=== PATIENT | female | born 1990 | race Caucasian/White ===

== ENCOUNTER 2018-02-19 07:10 | Emergency (ER) | payer OTHER, SELFPAY ==
[2018-02-19 07:11] VITALS: BP 139/71; PULSE 68; RESP 15; TEMP 36.2; BMI 31.4
--- NOTE | 2018-02-19 07:48 | RAD_ITS ---
STUDY: X-RAY CHEST REASON FOR EXAM: Female, 27 years old. History of fall. TECHNIQUE: PA and lateral views of the chest. COMPARISON: None. FINDINGS: The lungs are clear and expanded. There is no demonstrated pleural abnormality. Normal size heart. Normal mediastinum and nuzhat. Normal visualized pulmonary arteries. Normal visualized aortic arch and descending thoracic aorta. Normal visualized thoracic spine. Normal visualized ribs, clavicles, and shoulders. There is no demonstrated abnormality of the visualized soft tissue structures of the upper abdomen. RAD/Chest PA and Lateral IMPRESSION: Normal x-ray examination of the chest. Electronically Signed: Quinton Rudolph MD at 8:18 EDT Tel [phone], Service support ,
--- NOTE | 2018-02-19 07:54 | ED.DCSUM_ITS ---
- ER Visit Summary Date of Service: 02/19/18 Chief Complaint: [fAll] History of Present Illness: The patient is a 27 F [who presents the emergency department after a fall. Saturday night she fell off a swing after it broke. She hit the backside of her left head her upper chest and neck. Since then she has been very sore. She has been mildly nauseated. She has had intermittent tingling in both of her hands. No dizziness no problems with mood no problems with sleep. No persistent headache. She states that it hurts in her chest when she laughs coughs or sneezes. She no shortness of breath. She denies the possibility of . She has no injuries in her extremities. She works today but felt unable to go.] Physical Examination: [] 139/71 other vitals within normal limits NC AT PERRL EOMI MIDFACE STABLE NO DENTAL TRAUMA NECK mild tenderness at C7-T1 is paraspinal tenderness of the neck and bilateral shoulders as well, FROM WITHOUT PAIN RRR NO MURMURS, RUBS, OR GALLOPS CTAB, CHEST mild tenderness in the bilateral upper chest, NO BRUISING ABDOMEN SOFT NONTENDER NORMAL BOWEL SOUNDS, NO ECCHYMOSIS EXTREMITIES WITH NO DEFORMITY, SWELLING OR ECCHYMOSIS, NVIT X4 CRANIAL NERVES IN TACT, NO MOTOR SENSORY DEFICITS BACK WITH NO MIDLINE TENDERNESS SKIN NORMAL, NO ABRASIONS OR LACERATIONS Test Results: [] Emergency Department Course and Treatment: [Patient was given Toradol and Flexeril. X-ray of the chest and neck were obtained. X-rays show straightening of normal cervical lordosis but no other acute process. Patient will alternate ice and heat use anti-inflammatories and muscle relaxants rest and follow-up with her primary care physician. She was given precautions for which to return. Treatment Plan: [] Disposition: [Discharge] Impression: [1. Closed head injury 2. Chest wall contusion 3. Neck strain] This note was generated with [employer] software. It may contain incorrect words, spelling, and punctuation that were not noted in review of the chart prior to signing ED Disposition - Plan for ED Patient: Chief Complaint: Head Injury
[2018-02-19] MEDS: Ketorolac 60 MG/2 ML Vial IM (07:57)
--- NOTE | 2018-02-19 08:00 | RAD_ITS ---
STUDY: X-RAY - CERVICAL SPINE REASON FOR EXAM: Female, 27 years old. Pain following injury. TECHNIQUE: 3 view(s) of the cervical spine were obtained. COMPARISON: None FINDINGS: Normal anterior atlantoaxial articulation. Normal odontoid process. There is straightening of the normal cervical lordosis. Normal vertebral bodies and endplates. Normal disc space heights. Normal visualized intervertebral neuroforamina. Small bilateral cervical ribs. The soft tissue structures are unremarkable. RAD/Cerv Spine 2 or 3 Views IMPRESSION: Straightening of the normal cervical lordosis. Electronically Signed: Quinton Rudolph MD at 8:18 EDT Tel [phone], Service support ,
--- NOTE | 2018-02-19 08:34 | ED.DEP ---
ED Disposition - Plan for ED Patient: Chief Complaint: Head Injury Instructions: ED Head Injury Closed, ED Sprain Strain Neck, ED Contusion Chest Wall Prescriptions: Ibuprofen [Ibu] 600 mg PO Q8H PRN PRN #20 tablet PRN Reason: Pain Cyclobenzaprine [Flexeril] 10 mg PO TID PRN #14 tablet PRN Reason: Muscle Spasm Referrals: Chano Grigsby MD [Primary Care Provider] - 5-7 Days
== END 2018-02-19 08:52 | disposition home or self-care (01) ==
PROVIDERS: Emergency Provider Emergency Medicine; Family Provider Family Medicine; PCP Family Medicine
DX: S09.90XA Unspecified injury of head, initial encounter (principal); S16.1XXA Strain of muscle, fascia and tendon at neck level, initial encounter; S20.219A Contusion of unspecified front wall of thorax, initial encounter; W17.89XA Other fall from one level to another, initial encounter; Y93.89 Activity, other specified; Y92.9 Unspecified place or not applicable
CPT/HCPCS: 71046; 72040; 96372; 99282

== ENCOUNTER 2019-12-19 15:53 | Emergency (ER) | payer OTHER, SELFPAY ==
[2019-12-19 15:55] VITALS: BP 120/77; PULSE 88; RESP 17; TEMP 36.7; O2SAT 100; BMI 33.7
--- NOTE | 2019-12-19 16:24 | ED.VISSUMM ---
- ER Visit Summary Date of Service: 12/19/19 Chief Complaint: URI History of Present Illness: The patient is a 29 F presenting with URI symptoms. She states that this has been ongoing for the past 2 weeks but worsened since yesterday. She has a dry cough, rhinorrhea, congestion, sore throat. She denies fever. She does have sick contacts at work. She denies recent travel. She is not a smoker. Denies chest pain or shortness of breath. Denies other complaints. Physical Examination: Vitals are stable. Patient is afebrile. Alert no acute distress. HEENT exam is unremarkable. Pharynx is normal. Uvula midline. Neck is supple. No meningismus Lungs are clear and equal bilaterally. Heart is regular rate and rhythm. Abdomen is soft nontender nondistended. Extremities are unremarkable. Skin is warm and dry. No rash No focal neurologic deficit. Remainder of exam is unremarkable. Emergency Department Course and Treatment: Chest xray shows hypoinflation. No airspace consolidation. Patient is advised to return to the ED for any worsening complaints including high fever and shortness of breath. Advised follow-up with primary care physician. Disposition: Discharge home Impression: URI This note was generated with [employer] dictation software. It may contain incorrect words, spelling, and punctuation that were not noted in review of the chart prior to signing ED Disposition - Plan for ED Patient: Instructions: VIRAL SYNDROME (Adult) Referrals: Chano Grigsby MD [Primary Care Provider] -
--- NOTE | 2019-12-19 16:25 | RAD_ITS ---
STUDY: X-RAY CHEST REASON FOR EXAM: Female, 29 years old. cough and sore throat for 3 days TECHNIQUE: AP COMPARISON: 02/19/2018 FINDINGS: The lungs are clear but under expanded. There is no demonstrated pleural abnormality. Normal size heart. Normal mediastinum and nuzhat. Normal visualized pulmonary arteries. Normal visualized aortic arch and descending thoracic aorta. Normal visualized thoracic spine. Normal visualized ribs, clavicles, and shoulders. There is no demonstrated abnormality of the visualized soft tissue structures of the upper abdomen. RAD/Chest 1 View (Portable) IMPRESSION: Hypoinflation. No airspace consolidation. Electronically Signed: Freddy Gonzalez MD ([place]) at 16:38 EDT , Service support ,
--- NOTE | 2019-12-19 16:45 | ED.DEP ---
ED Disposition - Plan for ED Patient: Instructions: VIRAL SYNDROME (Adult) Referrals: Chano Grigsyb MD [Primary Care Provider] -
[2019-12-19 16:53] VITALS: BP 118/66; PULSE 84; RESP 18
== END 2019-12-19 17:02 | disposition home or self-care (01) ==
LOC: ED 17:02
PROVIDERS: Emergency Provider Emergency Medicine; PCP Family Medicine
DX: J06.9 Acute upper respiratory infection, unspecified (principal)
CPT/HCPCS: 71045; 99282

== ENCOUNTER 2021-05-19 11:55 | Emergency (ER) | payer OTHER, SELFPAY ==
[2021-05-19 11:56] VITALS: BP 125/75; PULSE 82; RESP 16; TEMP 36.3; O2SAT 99; BMI 33.3
--- NOTE | 2021-05-19 12:53 | RAD_ITS ---
STUDY: X-RAY - LEFT TIBIA AND FIBULA REASON FOR EXAM: Female, 30 years old. Injury/Pain TECHNIQUE: 2 view(s) of the tibia and fibula were obtained. COMPARISON: None. FINDINGS: No acute fracture, dislocation or osseous destruction. No significant joint space narrowing. No significant productive changes. No significant soft tissue swelling. RAD/Tibia & Fibula 2 Views IMPRESSION: Left tibia/fibula intact Electronically Signed: Bill Irizarry DO at 13:17 EDT Tel , Service support ,
[2021-05-19] MEDS: HYDROcodone Bitartrate/Apap 5/325 Tablet PO (12:55)
--- NOTE | 2021-05-19 14:13 | EDS_ITS ---
HPI History of Present Illness Chief Complaint: Lower Extremity Injury Informant: patient Onset/Context/Timing Onset: Yesterday Context: Sudden Onset Timing: Continuous Quality of Pain: - (Cramping, tightness) Location: Left calf Worsened by: Weightbearing Relieved by: Ice Associated Symptoms Associated Symptoms: Negative for Parasthesia, Weakness and Loss of Funtion Narrative Narrative: Patient presents with left calf pain that began last night. Patient states she was lifting something when she felt a pop in her left calf. Patient states her pain is worse today. Patient states her pain is worse with any weightbearing. Patient describes her pain as a cramping and tightness in her calf. Patient states ice has been helping with the pain. Patient denies any paresthesias or weakness. Patient denies any other injuries. Patient is concerned over possible tendon rupture. PFSH PFSH no medical history Home Medications naproxen 500 mg PO BID PRN #20 tab 05/19/21 [Rx Last Taken Unknown] Allergy/AdvReac Type Severity Reaction Status Date / Time bee venom protein (honey bee) Allergy Swelling Verified 05/19/21 11:56 no surgical history Social History Smoking Status: Never smoker ROS ROS ED Constitutional Constitutional ED: Denies chills or fever(s) Eyes Eyes: Denies blurry vision or change in vision ENT ENT ED: Denies rhinorrhea or sore throat Cardiovascular Cardiovascular: Denies chest pain or palpitations Respiratory/Chest Respiratory/Chest: Denies cough or dyspnea Gastrointestinal Gastrointestinal: Denies nausea or vomiting Genitourinary Genitourinary ED: Denies dysuria or hematuria Musculoskeletal Musculoskeletal: Denies back pain or neck pain Integumentary Denies abscess or rash Neurologic Neurologic: Denies headache(s) or weakness Allergic/Immunologic Allergic/Immunologic ED: Denies mouth swelling or urticaria EXAM Physical Exam Const Vital Signs: 05/19/21 11:56 05/19/21 14:42 Temperature 97.3 F L Temperature Source Temporal Pulse Rate 82 81 Respiratory Rate 16 20 H Blood Pressure 125/75 H 134/79 H Blood Pressure Mean 91 Pulse Ox 99 97 Oxygen Delivery Method Room Air Positive well nourished and well developed General Appearance ED: well developed HEENT Reports moist mucous membranes Neck full ROM Extremity Extremity Narrative: There is tenderness over the medial and posterior aspects of the left lower leg. There is no deformity. There is no edema or ecchymosis. Sharp test is negative. Achilles tendon is intact. Range of motion of the left ankle was decreased in dorsiflexion secondary to pain. Pedal pulses are e qual bilaterally. There are no sensory deficits noted. Neuro oriented x3, CN's II-XII intact bilaterally, moves all extremities and no sensory deficits noted Sensorium / Orientation: alert Motor Exam: strength 5/5 throughout Psych mental status grossly normal MDM MDM MDM Narrative Medical decision making narrative: Patient was given a dose of [place] here. X- rays of the left tib-fib were obtained. There are 2 views. On my interpretation, there is no acute fracture. There is some mild soft tissue swelling. Radiologist also interpreted the x-rays and agrees. Patient was advised of her findings. Patient was given a walking boot. Patient had crutches. Patient was instructed to ice and elevate the left calf. Patient was given a prescription for naproxen. Patient was instructed to follow-up with her primary care physician in 5 to 7 days. Patient understood and was agreeable with the plan. All questions were answered. Radiography Diagnostic Testing: Radiology Impression Tibia/Fibula X-Ray 05/19/21 12:53 IMPRESSION: Left tibia/fibula intact Electronically Signed: Bill Irizarry DO at 13:17 EDT Tel , Service support , Discharge Plan Triage Chief Complaint: Lower Extremity Injury ED Provider: Bill Araya Dx/Rx/DC Orders Clinical Impression: Strain of left calf muscle Instructions: ED Muscle Strain, Extremity Prescriptions: New naproxen 500 MG tablet 500 mg PO BID PRN Qty: 20 RF: 0 Stand Alone Forms: Work Status Form Primary Care Provider: Chano Grigsby Referrals: Chano Grigsby MD [Primary Care Provider] - 3-5 Days Disposition Disposition: Home, Self Care Discharge Date/Time: 05/19/21 14:43
[2021-05-19 14:42] VITALS: BP 134/79; PULSE 81; RESP 20; O2SAT 97
--- NOTE | 2021-05-19 14:43 | ED.RN ---
THIS NURSE REVIEWED D/C INSTRUCTIONS WITH PT. PT VERBALIZED UNDERSTANDING OF INSTRUCTIONS. PT DENIES FURTHER NEEDS OR QUESTIONS AT THIS TIME
== END 2021-05-19 14:43 | disposition home or self-care (01) ==
LOC: ED 12:32
PROVIDERS: Emergency Provider Emergency Medicine; PCP Family Medicine
DX: S89.92XA Unspecified injury of left lower leg, initial encounter (principal); X50.9XXA Other and unspecified overexertion or strenuous movements or postures, initial encounter; Y93.9 Activity, unspecified; Y92.9 Unspecified place or not applicable; Y99.9 Unspecified external cause status
CPT/HCPCS: 73590; 99283

== ENCOUNTER 2024-01-22 08:22 | Inpatient (IN) | payer OTHER, SELFPAY ==
[2024-01-22] VITALS (43 sets, daily range): BP systolic 79–133; BP diastolic 46–70; PULSE 64–123; RESP 16; TEMP 36.2–36.6; O2SAT 94–100; BMI 35.4
[2024-01-22] MEDS: Lactated Ringers 1,000 ML 50 ML IV (08:00)
[2024-01-22] MEDS: Oxytocin 15 Units/NS 250ml 15 UNITS/250 ML IV.SOLN 2 UNITS IV (08:30)
[2024-01-22 08:46] LABS: Absolute Lymphocyte Count 1.32 X10^3/uL (0.83-4.51); Absolute Neutrophil Count 5.8 X10^3/uL (2.0-7.7); Basophil# 0.03 X10^3/uL; Basophil% 0.4 % (0-1); Eosinophil# 0.11 X10^3/uL; Eosinophils% 1.4 % (0-5); Hematocrit 36.3 % (37-47); Hemoglobin 12.5 g/dL (12.0-15.0); Lymphocyte # 1.32 X10^3/ul (0.83-4.51); Lymphocyte % 16.9 % (19-41); Mean Corp Hgb Conc 34.4 g/dL (32-36); Mean Corpuscular Hgb 31.6 pg (27.0-32.0); Mean Corpuscular Volume 91.9 fL (81-99); Mean Platelet Vol. 11.5 fl (6.2-12.0); Monocyte# 0.55 X10^3/uL; NRBC Flagged by Analyzer 0 % (0-5); Neutrophil # 5.79 X10^3/uL (2.7-7.7); Platelet Count 175 K/mm3 (150-450); RBC Distribution Width CV 13.5 % (11.6-14.6); RBC Distribution Width SD 45.3 fl (35.1-43.9); Red Blood Count 3.95 M/mm3 (4.2-5.4); White Blood Count 7.8 K/mm3 (4.4-11.0)
[2024-01-22 09:40] LABS: Syphilis Antibodies Non-reactive
[2024-01-22 09:53] LABS: Bedside Glucose 104 mg/dL (74-106)
[2024-01-22] MEDS: Ondansetron 4 MG/2 ML Vial IV (12:02)
[2024-01-22] MEDS: Lactated Ringers 1,000 ML 100 ML IV (15:20)
[2024-01-22 16:35] LABS: Bedside Glucose 78 mg/dL (74-106)
[2024-01-22] MEDS: 0.9% Saline Lock 10 ML Syringe IV (16:55)
--- NOTE | 2024-01-22 19:31 | PCM.PN.OB ---
Subjective Subjective Pitocin IOL. Minimal cervical change through out the day. Pitocin break as severe weather passed through. Restarted Pitocin and AROM for clear fluid. Objective Data Objective Data Vital Signs: Vital Signs Temp Pulse Resp BP Pulse Ox 97.4 F L 80 16 110/64 100 01/22/24 18:10 01/22/24 19:30 01/22/24 18:10 01/22/24 19:30 01/22/24 19:28 Weight: 96.729 kg Body Mass Index (BMI) 35.4 Intake & Output: Intake and Output for Last 24 Hours 01/20/24 01/21/24 01/22/24 23:59 23:59 23:59 Intake Total 435.94 / 435.94 Balance 435.94 / 435.94 Lab / Micro Data 01/22/24 08:00 Labs: Laboratory Results - last 24 hr 01/22/24 08:00: WBC 7.8, RBC 3.95 L, Hgb 12.5, Hct 36.3 L, MCV 91.9, MCH 31.6, MCHC 34.4, RDW Std Deviation 45.3 H, RDW Coeff of Cat 13.5, Plt Count 175, MPV 11.5, Immature Gran % (Auto) 0.300, Neut % (Auto) 74.0 H, Lymph % (Auto) 16.9 L, [place] % (Auto) 7.0, Eos % (Auto) 1.4, Baso % (Auto) 0.4, Absolute Neuts (auto) 5.8, Absolute Lymphs (auto) 1.32, Nucleated RBC % 0, Syphilis Total Ab Non-reactive, Blood Type O POSITIVE, Antibody Screen NEGATIVE 01/22/24 09:21: POC Glucose 104 01/22/24 16:15: POC Glucose 78 Physical Exam Const alert and no apparent distress General Appearance: cooperative HEENT normocephalic Resp normal respiratory effort GI soft to palpation GI Narrative: gravid, nontender, appropriate for gestational age Psych activity/motor behavior normal NST FHR Rate Baby A Variability:: Moderate Accelerations:: 15 x 15 Decelerations:: None NST Reactive:: Yes FHR Category:: Category I Uterine Activity:: q3 Assessment & Plan (1) 39 weeks gestation of : (2) Gestational diabetes, diet controlled:
--- NOTE | 2024-01-22 19:33 | PCM.HP.OB ---
HPI - General General Date of Admission: 01/22/24 Date of Service: 01/22/24 Chief Complaint: IOL for gestational diabetes HPI Narrative PELON HUANG, is a 33 F who presents for induction of labor with diet controlled diabetes Maternal Data Information Final WEI: 01/29/24 Gestational age: 39 PFSH PFSH Medical History Gestational diabetes Medical History no medical history Home Medications naproxen 500 mg tablet 500 mg PO BID PRN #20 tabs 05/19/21 [Rx Last Taken Unknown] Allergy/AdvReac Type Severity Reaction Status Date / Time bee venom protein (honey bee) Allergy Swelling Verified 05/19/21 11:56 Social History Smoking Status: Never smoker History 2 Elective abortions Hx Para 1 Spontaneous abortions Hx # Term Pregnancies Ectopic pregnancies Hx # Pregnancies Multiple births # of living children NST FHR Rate Baby A Baseline: 140 Variability:: Moderate Accelerations:: 15 x 15 Decelerations:: None NST Reactive:: Yes FHR Category:: Category I Uterine Activity:: few on admission ROS Constitutional Constitutional: Denies fatigue, fever(s) or malaise Eyes Eyes: Denies change in vision ENT HEENT: Denies dizziness or headache(s) Cardiovascular Cardiovascular: Denies chest pain, dyspnea or lightheadedness Respiratory/Chest Respiratory/Chest: Denies cough or dyspnea Gastrointestinal Gastrointestinal: Denies change in bowel habits Genitourinary Genitourinary: Denies burning urination or genital lesions Integumentary Integumentary: Denies rash Neurologic Neurologic: Denies confusion, dizziness, headache(s), numbness or weakness Vital Signs Vital Signs Vital Signs: 01/22/24 07:20 01/22/24 07:20 01/22/24 07:19 Temperature Temperature Source Temporal Pulse Rate 93 Respiratory Rate Blood Pressure 121/60 H BP Systolic 121 BP Diastolic 60 Pulse Ox 01/22/24 07:19 01/22/24 07:19 01/22/24 08:32 Temperature 97.7 F L Temperature Source Pulse Rate Respiratory Rate 16 Blood Pressure 114/60 BP Systolic 114 BP Diastolic 60 Pulse Ox 01/22/24 08:32 01/22/24 09:02 01/22/24 09:02 Temperature Temperature Source Pulse Rate 80 81 Respiratory Rate Blood Pressure 105/58 L BP Systolic 105 BP Diastolic 58 Pulse Ox 01/22/24 10:20 01/22/24 10:20 01/22/24 10:29 Temperature Temperature Source Pulse Rate 72 Respiratory Rate Blood Pressure 97/52 L 93/51 L BP Systolic 97 93 BP Diastolic 52 51 Pulse Ox 01/22/24 10:29 01/22/24 11:34 01/22/24 11:34 Temperature Temperature Source Pulse Rate 77 123 H Respiratory Rate Blood Pressure 107/64 BP Systolic 107 BP Diastolic 64 Pulse Ox 01/22/24 11:35 01/22/24 11:35 01/22/24 11:34 Temperature Temperature Source Temporal Pulse Rate 105 H Respiratory Rate Blood Pressure BP Systolic BP Diastolic Pulse Ox 98 01/22/24 11:34 01/22/24 11:34 01/22/24 12:07 Temperature 97.5 F L Temperature Source Pulse Rate Respiratory Rate 16 Blood Pressure 109/66 BP Systolic 109 BP Diastolic 66 Pulse Ox 01/22/24 12:07 01/22/24 12:20 01/22/24 12:20 Temperature Temperature Source Pulse Rate 73 65 Respiratory Rate Blood Pressure 117/70 BP Systolic 117 BP Diastolic 70 Pulse Ox 01/22/24 13:28 01/22/24 13:28 01/22/24 13:27 Temperature Temperature Source Temporal Pulse Rate 69 Respiratory Rate Blood Pressure 115/66 BP Systolic 115 BP Diastolic 66 Pulse Ox 01/22/24 13:27 01/22/24 13:27 01/22/24 13:27 Temperature 97.2 F L Temperature Source Pulse Rate Respiratory Rate 16 Blood Pressure BP Systolic BP Diastolic Pulse Ox 100 01/22/24 15:50 01/22/24 15:50 01/22/24 15:50 Temperature Temperature Source Pulse Rate 80 Respiratory Rate Blood Pressure 133/66 H BP Systolic 133 BP Diastolic 66 Pulse Ox 100 01/22/24 17:34 01/22/24 17:34 01/22/24 18:10 Temperature Temperature Source Temporal Pulse Rate 75 Respiratory Rate Blood Pressure 126/63 H BP Systolic 126 BP Diastolic 63 Pulse Ox 01/22/24 18:10 01/22/24 18:10 01/22/24 18:10 Temperature Temperature Source Pulse Rate 64 Respiratory Rate 16 Blood Pressure 103/54 L BP Systolic 103 BP Diastolic 54 Pulse Ox 01/22/24 18:10 01/22/24 18:10 01/22/24 19:28 Temperature 97.4 F L Temperature Source Pulse Rate 80 Respiratory Rate Blood Pressure BP Systolic BP Diastolic Pulse Ox 99 01/22/24 19:28 01/22/24 19:30 01/22/24 19:30 Temperature Temperature Source Pulse Rate 80 Respiratory Rate Blood Pressure 110/64 BP Systolic 110 BP Diastolic 64 Pulse Ox 100 01/22/24 19:28 01/22/24 19:28 01/22/24 19:28 Temperature 97.4 F L Temperature Source Temporal Pulse Rate Respiratory Rate 16 Blood Pressure BP Systolic BP Diastolic Pulse Ox Weight Weight: 96.729 kg Body Mass Index (BMI) 35.4 Physical Exam Const alert and no apparent distress General Appearance: cooperative HEENT normocephalic Head and Scalp: atraumatic Eyes PERRL and EOMs intact bilaterally Neck full ROM Resp normal respiratory effort GI soft to palpation GI Narrative: gravid, nontender, appropriate for gestational age Inspection: gravid Manual OB Exam: dilated 3, effaced 50 and station -3 Neuro moves all extremities and no focal motor deficits Psych activity/motor behavior normal Labs Labs Labs: Blood Type O POSITIVE Antibody Screen NEGATIVE Hct 36.3 % (37-47) L Hgb 12.5 g/dL (12.0-15.0) Syphilis Total Ab Non-reactive Assessment & Plan (1) Gestational diabetes, diet controlled: QUALIFIERS: Trimester: third trimester Qualified Code(s): O24.410 - Gestational diabetes mellitus in , diet controlled PLAN: Pitocin induction. Epidural prn (2) 39 weeks gestation of :
[2024-01-22 20:35] LABS: Bedside Glucose 84 mg/dL (74-106)
[2024-01-22 20:35] LABS: Bedside Glucose 64 mg/dL (74-106)
[2024-01-22] MEDS: LACTATED RINGERS 500 ML 999 ML IV ×2 (22:28→23:58)
[2024-01-22] MEDS: fentaNYL-bupivacaine (epidural) 100 ML BAG EPIDURAL (23:42)
[2024-01-23] VITALS (103 sets, daily range): BP systolic 81–143; BP diastolic 39–101; PULSE 55–126; RESP 16–18; TEMP 36.1–36.9; O2SAT 94–100
[2024-01-23 00:28] LABS: Bedside Glucose 93 mg/dL (74-106)
[2024-01-23] MEDS: Lactated Ringers 1,000 ML 200 ML IV (02:12)
[2024-01-23 04:31] LABS: Bedside Glucose 86 mg/dL (74-106)
[2024-01-23] MEDS: Oxytocin 10 UNITS/ML Vial IM (05:10)
[2024-01-23] MEDS: Oxytocin 15 Units/NS 250ml 15 UNITS/250 ML IV.SOLN 83 UNITS IV (05:10)
--- NOTE | 2024-01-23 05:27 | EX.PCM.OBRPT ---
Assessment & Plan (1) (spontaneous vaginal delivery): (2) Gestational diabetes, diet controlled: QUALIFIERS: Trimester: third trimester Qualified Code(s): O24.410 - Gestational diabetes mellitus in , diet controlled (3) 39 weeks gestation of : Maternal Data Information Final WEI: 01/29/24 Gestational age: 39+1 Vaginal Delivery Maternal Presentation Maternal Presentation: Medically Indicated Induction Maternal Presentation: Gestational diabetes Type of Induction: Pitocin and Amniotomy Operative Information Date of Procedure: 01/23/24 Pre-Operative Diagnosis: IUP at 39 weeks, gestational diabetes Post-Operative Diagnosis: same Surgery / Procedure Performed: Spontaneous Vaginal Delivery Type of Anesthesia: Epidural Drain: [place] to straight drain Estimated Blood Loss: 150 cc Time of Delivery: 05:06 Findings Description of Procedure: After reaching complete dilatation the patient pushed for 25 minutes over an intact peritoneum. Delivered OA. The anterior and posterior shoulder delivered easily. There was a true knot in the cord. Cord was clamped and cut. Cord blood was collected. No repair needed Presentation: Vertex and POWER Amniotic Membrane Rupture Type: Artificial Time of Membrane Rupture: 1923 Amniotic Fluid Description: Clear Placental Delivery Description: Spontaneous Placenta Disposition: [facility] Cord Vessel Description: 3 Vessels Cord Entanglement: True Knot(s) (x1) Nuchal Cord Compression: Without compression Infant A Gender: Male (1 minute): 8 (5 minute): 9 Delayed Cord Clamping: Yes Post Vaginal Delivery Medications Given After Delivery: IV Pitocin and IM Pitocin Episiotomy Description: None Laceration: None Complication Complications: None
[2024-01-23] MEDS: LACTATED RINGERS 300 ML 999 ML IV (06:28)
[2024-01-23] MEDS: Acetaminophen 500 MG Tablet 1000 MG PO (07:24)
[2024-01-23] MEDS: Ibuprofen 600 MG Tablet PO ×2 (11:13→19:52)
[2024-01-23 13:51] LABS: Bedside Glucose 113 mg/dL (74-106)
--- NOTE | 2024-01-23 16:05 | CASEMGMT ---
Social Work Assessment Labor and Delivery Unit Patient Address:[address] [place] [id number] Phone number: [phone] Date of Referral: 01/23/24 Time of Referral:? [id number] Referred By: Ruma Tuttle Date of Intervention: 01/23/24?? Time of Intervention:? 1500 Reason for Referral:? resources Sw completed chart review and acknowledges social work consult due to resources. Sw presented to bedside and introduced self to mother of baby (MOB- Mirta) and father of baby (FOB- Mehran). Sw explained reason for sw involvement and completed psychosocial assessment. History obtained from: medical records, MOB and FOB Household composition: Currently residing in the home is MOB, FOB, EUNICE's ex-, and EUNICE's older son (Alvaro- 10 years old). EUNICE states that her housing is safe and secure. When discussing the dynamics between her ex living with her and FOB. EUNICE reports that she is in the process of going through a dissolution, and although her ex still continues to reside with them, they have lived together for a couple of years and get along fine. Patient's parent/guardian status:? ?EUNICE reports that she and FOB have been together for 6 years. EUNICE denies any concerns of domestic violence or intimate partner violence. EUNICE states that she started to file for a dissolution while she had just learned of her - and because of the she was not permitted to file the paperwork. [facility]ICE states that [facility] staff helped her with the documentation. * FOB states that he has two older children: 16 and 8 years old. FOB states that he is not involved in the 16 year olds life. He has scheduled visits with his 8 year old 2x a month. Medical History: EUNICE is 33 year old female who is 2, para 1- now 2 following labor and delivery of . EUNICE received routine care during with [facility]. EUNICE presented to hospital for an induction of labor, and baby was born on 01/23/24 via vaginal delivery at 39 weeks gestation. Baby boy, named Boo Anthony, was born weighing 6lb 12oz with apgars of 8 and 9 at one and five minutes of life, respectfully. Baby will be followed by Dr. Lutz for pediatrics. EUNICE states that she is breast feeding and is still requiring some assistance. ? Educational Status:? Both parents graduated from high school. Financial Status: JOE works for a cleaning service that cleans [employer].EUNICE works for [employer] and is able to take three months off of work now that baby has been born. Supplies:??MOB reports to obtaining all necessary baby supplies, including: car seat, safe sleep space, clothes, diapers and wipes. Childcare/Caregiver(s):? MOB will be the primary caregiver to baby along with help from FOB when he is not at work. Parents state that they have family members that will provide childcare for parents when they are both working. Transportation: Both parents have their license and reliable means of transportation- no barriers at this time. ?? Programs/Agencies Involved: ??EUNICE is connected to [facility] that helped her obtain necessary baby supplies, and provided classes for parents to take. ? Children Services/Legal Issues:??? JOE states that he did have a children services case when his daughter was younger- STEPHANIEB states that the case was open on the mother of his children- and she ultimately lost custody. EUNICE denies history of children services involvement. No issues or concerns warranting referral to be made at this time. Behavioral Health Issues: ??Mental Health History:??JOE reports that he has been diagnosed with ADD, anxiety and depression. JOE states that he is connected to mental health services and supports at [facility]. MOB denies mental health history. ? Substance Use History: Parents deny substance use ?? Family History:?Parents deny family history of addiction/ substance use, or significant mental health diagnoses such as bipolar and schizophrenia. ? Drug Screens: no drug screens observed in chart review. ?? Family/Social Stressors:? Parents deny any issues, concerns or stressors at this time. Support Systems: EUNICE states that her biggest supports are her mom and paternal grandma. Depression/Shaken Baby/Safe Sleeping:? Sw educated parents at length regarding signs and symptoms of baby blues and depression and anxiety to be on the lookout for. Sw also provided parents with literature for them to review on these topics. Parents expressed understanding. Sw educated parents on shaken baby prevention and ABCs of safe sleep. Parents express understanding. Sw provided literature on these topics for parents to take home as well. ASSESSMENT:? MOB and baby are admitted following labor and delivery of . MOB and FOB both at bedside and attentive to providing care to . Parents both engaged in conversation and completion of psychosocial assessment. Family living arrangements and dynamics are different, but parents report this is what works for their family. Parents were talkative and observed to be attentive to baby during completion of psychosocial assessment. PLAN:? MOB and baby to be discharged when medically ready. ?No other services requested or indicated. Nallely Mistry, AIRPORT SKILLED MAINTENANCE SUPERVISOR, REHAB RN
[2024-01-24 04:15] VITALS: BP 109/60; PULSE 78
[2024-01-24 04:30] VITALS: BP 109/60; PULSE 77; RESP 16; TEMP 36.6; O2SAT 97
[2024-01-24 04:48] LABS: Bedside Glucose 112 mg/dL (74-106)
--- NOTE | 2024-01-24 06:54 | PCM.DC.SUM ---
Providers Date of Admission: 01/22/24 Primary Care Physician: Dr. Chano Grigsby MD Reason For Visit: VAG Diagnosis Discharge Diagnosis (1) (spontaneous vaginal delivery): Status: Acute Code(s): O80 - Encounter for full-term uncomplicated delivery (2) Gestational diabetes, diet controlled: Status: Acute Code(s): O24.410 - Gestational diabetes mellitus in , diet controlled Qualifiers: Trimester: third trimester Qualified Code(s): O24.410 - Gestational diabetes mellitus in , diet controlled (3) 39 weeks gestation of : Status: Acute Code(s): Z3A.39 - 39 weeks gestation of Plan PPD 1 Routine care Discharge home Medications at Discharge Home Medications acetaminophen 500 mg tablet 1,000 mg (2 x 500 mg) PO Q6H PRN PRN Pain 1-10 Or Fever #0 tabs 01/24/24 ibuprofen 600 mg tablet 600 mg PO Q6H PRN PRN Pain Score 1-10 #0 tabs 01/24/24 Hospital Course Operations None Procedures None Summary of Care Provided Minutes Spent on Discharge: 10 Physical Exam Const alert and no apparent distress General Appearance: cooperative and comfortable Exam Limitations: no limitations HEENT normocephalic Eyes General Eye: normal appearance of both eyes Neck full ROM General: normal visual inspection Chest Chest: symmetrical chest wall rise Resp normal respiratory effort and normal air movement Effort and Inspection: symmetric chest movement Auscultation: clear to auscultation bilaterally Cardio regular rate and regular rhythm GI normal to inspection, nondistended, normoactive bowel sounds Back/Spine normal ROM Extremity full ROM and no calf tenderness General Extremity: normal exam except as noted Skin no rashes or lesions noted Neuro CN's II-XII intact bilaterally Psych mental status grossly normal Weight / BMI Weight Weight: 213 lb 4 oz Body Mass Index (BMI) 35.4 ABG / Lab / Microbiology Data 01/22/24 08:00 Laboratory: Laboratory Results - last 24 hr 01/23/24 06:03: POC Glucose 113 H 01/24/24 04:20: POC Glucose 112 H D/C Instructions Discharge Diet: No restrictions May resume sexual activity in: 6-8 weeks Weight Bearing Status: Weight bearing as tolerated Call your doctor if you observe: Fever of 101 or Higher, Inability to urinate, Using more than 1 pad per hour, Shortness of breath, Chest pain, Calf discomfort and Uncontrolled pain When: 2 weeks virtual visit/ 6 weeks in office Meaningful Use Info Meaningful Use Meaningful Use Diagnoses (Choose all that apply): None applicable Ischemic Stroke Statin Dosing Therapy Reference: STATIN DOSE THERAPY REFERENCE: * Patients > 75 years receive moderate or high dose statin therapy. * Patients 75 years or YOUNGER should receive HIGH intensity statin dose unless contraindicated. You will be required to document reason for non-treatment if statin daily dose does not meet guidelines. HIGH DOSE STATIN THERAPY DAILY Atorvastatin > than or = to 40 mg Rosuvastatin > than or = to 20 mg Amlodipine + Atorvastatin > than or = to 2.5/40 mg Ezetimibe + Simvastatin 10/80 mg Simvastatin 80mg Discharge Plan Admission Admit Date/Time: 01/22/24 08:22 Primary Reason for Your Visit: Labor and Delivery Attending Provider: Ruma Tuttle Primary Care Provider: Chano Grigsby Discharge Orders/Prescriptions Prescriptions: New acetaminophen 500 mg Tablet 1,000 mg PO Q6H PRN PRN (Reason: Pain 1-10 Or Fever) Qty: 0 0RF ibuprofen 600 mg Tablet 600 mg PO Q6H PRN PRN (Reason: Pain Score 1-10) Qty: 0 0RF Discontinued naproxen 500 MG tablet 500 mg PO BID PRN Qty: 20 0RF Referrals / Follow Up: Chano Grigsby MD [Primary Care Provider] - Disposition Disposition (needs filled in before D/C Order can be placed): Home, Self Care
[2024-01-24 07:18] VITALS: BP 98/55; PULSE 88
[2024-01-24 07:22] VITALS: BP 98/55; PULSE 90; RESP 16; TEMP 36.6; O2SAT 98
== END 2024-01-24 09:20 | disposition home or self-care (01) | DRG 807 ==
PROVIDERS: Admitting Provider Obstetrics & Gynecology; PCP Family Medicine; Visit Provider Obstetrics & Gynecology
DX: O24.420 Gestational diabetes mellitus in childbirth, diet controlled (principal); Z37.0 Single live birth; O69.2XX0 Labor and delivery complicated by other cord entanglement, with compression, not applicable or unspecified; O69.81X0 Labor and delivery complicated by cord around neck, without compression, not applicable or unspecified; Z3A.39 39 weeks gestation of pregnancy
CPT/HCPCS: 59025; 59050; 82962; 85025; 86780; 86850; 86900; 86901; 99221; J7120; A4216; G0378; J2405

== ENCOUNTER 2024-06-30 21:21 | Emergency (ER) | payer OTHER, SELFPAY ==
[2024-06-30 21:22] VITALS: BP 128/75; PULSE 71; RESP 18; TEMP 36.1; O2SAT 96; BMI 36.3
--- NOTE | 2024-06-30 21:42 | EX.ED.UPPERE ---
HPI History of Present Illness Chief Complaint: Upper Extremity Injury Informant: patient Narrative Narrative: [id number] female presents bilateral wrist pains with tingling to the hand for a while. Also admitted bilateral shoulder pains. She works at [employer]. Reports a lot of repetitive motions. She states pain comes and goes. She has not had this evaluated. She states she is concern for carpal tunnel syndrome. PFSH PFS Medical History (spontaneous vaginal delivery) Gestational diabetes, diet controlled 39 weeks gestation of Gestational diabetes Home Medications ?Medication ?Instructions ?Recorded ?Last Taken ?Type acetaminophen 500 mg tablet 1,000 mg (2 x 500 mg) PO Q6H PRN 01/24/24 Unknown Rx PRN Pain 1-10 Or Fever #0 tabs ibuprofen 600 mg tablet 600 mg PO Q6H PRN PRN Pain Score 01/24/24 Unknown Rx 1-10 #0 tabs Allergy/AdvReac Type Severity Reaction Status Date / Time bee venom protein (honey bee) Allergy Swelling Verified 06/30/24 21:22 Social History Smoking Status: Never smoker ROS ROS ED Constitutional Constitutional ED: Denies fever(s) ENT ENT ED: Denies sore throat Cardiovascular Cardiovascular: Denies chest pain Respiratory/Chest Respiratory/Chest: Denies cough Gastrointestinal Gastrointestinal: Denies abdominal pain, nausea or vomiting Musculoskeletal Musculoskeletal: Reports extremity pain; Denies back pain or neck pain Integumentary Denies rash or wounds Neurologic Neurologic: Denies headache(s), paresthesias or weakness EXAM Physical Exam Const Vital Signs: 06/30/24 21:22 Temperature 97 F L Temperature Source Temporal Pulse Rate 71 Respiratory Rate 18 Blood Pressure 128/75 H Blood Pressure Mean 92 Pulse Ox 96 Oxygen Delivery Method Room Air Positive well nourished and well developed General Appearance ED: well developed and NAD HEENT Reports moist mucous membranes normocephalic and atraumatic Eyes EOMs intact bilaterally and conjunctivae normal General Eye ED: Yes normal appearance of both eyes Neck no lymphadenopathy and supple General: Negative for tenderness Chest Wall Chest: Negative for tenderness Resp normal respiratory effort and normal air movement Effort and Inspection: symmetric chest movement; Negative for respiratory distress Cardio regular rate, regular rhythm and no murmurs Peripheral Pulses: pulses 2+ throughout GI normal to inspection, nondistended, normoactive bowel sounds and non-tender Palpation: Negative for guarding or rebound tenderness present Back/Spine no CVA tenderness and no thoracic nor lumbar tenderness Extremity normal to inspection Extremity Narrative: Negative Tinel's at bilateral wrists. Bilateral positive Phalen's test with pain that would go to her thumbs. There is no weakness to railroad inspector strength. Bilateral shoulder exam negative empty can negative Apley's test. No pain with internal/external rotation of shoulder against resistance. Soft compartments. Neuro vas intact distally. General Extremety ED: Negative for edema or tenderness General Extremity: Negative for edema Neuro oriented x3 and no sensory deficits noted Sensorium / Orientation: awake and alert Skin no rashes or lesions noted and no wounds MDM MDM MDM Narrative Medical decision making narrative: Interventions / MDM: Differential diagnosis: Carpal tunnel syndrome, cervical strain. Diagnosis considered but do not suspect: No clinical or dislocation. My EKG interpretation: N/A Imaging independently reviewed and interpreted by myself: N/A External documents reviewed: N/A Test considered but not ordered:N/A ED course: Clinically carpal tunnel syndrome positive Phalen's test. Bilateral shoulder strain. Provided Velcro wrist splints. She declined medication knee. She has Tylenol and Motrin at home. She can follow-up orthopedics outpatient, along with her PCP. All questions were answered. Re-evaluation: stable Disposition discussed with patient/family/significant other: Patient Case discussed with consulting clinician: N/A This note was generated with [employer] dictation software. It may contain incorrect words, spelling, and punctuation that were not noted in checking the note before signing. Discharge Plan Triage Chief Complaint: Upper Extremity Injury ED Provider: Tonio Sahu Dx/Rx/DC Orders Clinical Impression: Carpal tunnel syndrome on both sides, Shoulder strain Instructions: Carpal Tunnel Syndrome, Carpal Tunnel Prevention Tips, ED Shoulder Sprain Prescriptions: No Action acetaminophen 500 mg Tablet 1,000 mg PO Q6H PRN PRN (Reason: Pain 1-10 Or Fever) Qty: 0 0RF ibuprofen 600 mg Tablet 600 mg PO Q6H PRN PRN (Reason: Pain Score 1-10) Qty: 0 0RF Primary Care Provider: Chano Grigbsy Referrals: Chano Grigsby MD [Primary Care Provider] - 1 Week Yoandy Anthony DO [Med Staff - Active Staff] - 1-2 Weeks Activity Restrictions/Additional Instructions: Use splints especially asleep to avoid aggravating symptoms. Tylenol Motrin as needed. Print Language: Romanian Disposition Disposition: Home, Self Care Discharge Date/Time: 06/30/24 22:05
[2024-06-30 22:03] VITALS: BP 122/74; PULSE 84; RESP 18; TEMP 36.7; O2SAT 96
== END 2024-06-30 22:05 | disposition home or self-care (01) ==
PROVIDERS: Emergency Provider Emergency Medicine; PCP Family Medicine; Visit Provider Emergency Medicine
DX: G56.03 Carpal tunnel syndrome, bilateral upper limbs (principal); S46.911A Strain of unspecified muscle, fascia and tendon at shoulder and upper arm level, right arm, initial encounter; S46.912A Strain of unspecified muscle, fascia and tendon at shoulder and upper arm level, left arm, initial encounter; X58.XXXA Exposure to other specified factors, initial encounter
CPT/HCPCS: 99282

== ENCOUNTER 2024-10-20 21:22 | Emergency (ER) | payer OTHER, SELFPAY ==
[2024-10-20 21:23] VITALS: BP 147/75; PULSE 87; RESP 16; TEMP 36.9; O2SAT 98; BMI 36.3
--- NOTE | 2024-10-20 22:56 | EX.ED.DYSGE1 ---
HPI History of Present Illness Chief Complaint: Wound Informant: patient Narrative Narrative: Patient is a 34-year-old female who denies any significant past medical history. She states 1 to 2 days ago she noticed that an area along the left genital/labial region was sore. She states that she used her phone to take a picture of it and her it looked like there was a laceration. She states that she gave vaginally but this was 9 months ago and she denies any rough sex or vaginal trauma recently. She denies any active bleeding or discharge but secondary to the persistent pain she presents for evaluation. [facility] Medical History (spontaneous vaginal delivery) Gestational diabetes, diet controlled 39 weeks gestation of Gestational diabetes Home Medications ?Medication ?Instructions ?Recorded ?Last Taken ?Type acetaminophen 500 mg tablet 1,000 mg (2 x 500 mg) PO Q6H PRN 01/24/24 Unknown Rx PRN Pain 1-10 Or Fever #0 tabs ibuprofen 600 mg tablet 600 mg PO Q6H PRN PRN Pain Score 01/24/24 Unknown Rx 1-10 #0 tabs clindamycin HCl 300 mg capsule 300 mg PO 4X/DAY 7 days #28 caps 10/20/24 Unknown Rx ketoconazole 2 % topical cream 1 applic topical BID 10 days #30 10/20/24 Unknown Rx grams Allergy/AdvReac Type Severity Reaction Status Date / Time bee venom protein (honey bee) Allergy Swelling Verified 10/20/24 21:26 Social History Smoking Status: Never smoker [facility] ED Constitutional Constitutional ED: Denies chills or fever(s) ENT ENT ED: Denies sore throat Cardiovascular Cardiovascular: Denies chest pain Respiratory/Chest Respiratory/Chest: Denies cough or dyspnea Gastrointestinal Gastrointestinal: Denies abdominal pain, diarrhea, nausea or vomiting Genitourinary Genitourinary ED: Reports other Details: Positive vaginal pain ; Denies dysuria, hematuria or urinary frequency Musculoskeletal Musculoskeletal: Denies back pain or myalgias Integumentary Denies rash Neurologic Neurologic: Denies headache(s) Hematologic/Lymphatic Hematologic/Lymphatic: Denies easy bleeding or easy bruising EXAM Physical Exam Const Vital Signs: 10/20/24 21:23 Temperature 98.4 F Temperature Source Oral Pulse Rate 87 Respiratory Rate 16 Blood Pressure 147/75 H Blood Pressure Mean 99 Pulse Ox 98 Oxygen Delivery Method Room Air Positive well nourished, well developed and obese General Appearance ED: well developed Nutritional Appearance: obese HEENT HEENT Narrative: Normocephalic atraumatic Eyes PERRL and EOMs intact bilaterally General Eye ED: Negative for scleral icterus Neck supple Resp normal respiratory effort and clear to auscultation bilaterally Cardio regular rate and regular rhythm GI normal to inspection, nondistended, normoactive bowel sounds, non-tender, non-distended and no masses Auscultation: normoactive bowel sounds Palpation: soft Narrative: Along the lower third lateral aspect of the left labia there is a area of mild erythema and ulceration with faint overlying white hue. This is concerning for developing abscess versus cutaneous candidiasis. No kissing lesions are noted to suggest STD/herpes zoster There is no induration or fluctuance to suggest active abscess no lymphangitic streaking no crepitance to suggest Aruna's gangrene. Extremity normal to inspection Neuro oriented x3, CN's II-XII intact bilaterally and no sensory deficits noted Sensorium / Orientation: alert Motor Exam: strength 5/5 throughout Psych mental status grossly normal Skin Skin Narrative: Soft tissue changes along the left labia as documented above MDM MDM MDM Narrative Medical decision making narrative: Patient arrived to the ER slightly hypertensive but otherwise with stable vitals. She had concern for a vaginal laceration but denied any recent 100 of sex or injury. Physical exam showed mild soft tissue erythema with faint overlying hue most consistent with vaginal/vulvar candidiasis. Without kissing lesions I had low concern for herpes zoster and there is no discharge to suggest gonorrhea or chlamydia. There is no obvious induration or fluctuance but there is mild ulceration of the tissue concerning for developing soft tissue infection such as cellulitis or early abscess. The patient does not have physical exam findings concerning for Aruna's gangrene and without systemic/vital sign changes I have low concern for sepsis and therefore I do not feel there is need for imaging or laboratory studies. Patient will be given ketoconazole cream to cover for cutaneous candidiasis but also clindamycin with concern for developing cellulitis/early abscess. This plan of care was discussed with the patient and she is agreeable to it and therefore we discharged at this time History & Record Review Discussion w/independent historian: Patient Discharge Plan Triage Chief Complaint: Wound ED Provider: Andrew Celis Dx/Rx/DC Orders Clinical Impression: Acute candidiasis of vulva and vagina Instructions: ED Pia Skin Infection (Adult) Prescriptions: New ketoconazole 2 % cream 1 applic topical BID 10 Days Qty: 30 0RF clindamycin HCl 300 mg capsule 300 mg PO 4X/DAY 7 Days Qty: 28 0RF No Action acetaminophen 500 mg Tablet 1,000 mg PO Q6H PRN PRN (Reason: Pain 1-10 Or Fever) Qty: 0 0RF ibuprofen 600 mg Tablet 600 mg PO Q6H PRN PRN (Reason: Pain Score 1-10) Qty: 0 0RF Primary Care Provider: Chano Grigsby Referrals: Chano Grigsby MD [Primary Care Provider] - Activity Restrictions/Additional Instructions: Your area of pain appears to be secondary to a developing vaginal yeast infection. Use a topical cream to help resolve this. However as there is an area of ulceration and there is concern for soft tissue infection/cellulitis take the clindamycin as directed to help resolve this aspect of the infection. It will typically take 48 to 72 hours before you notice symptom improvement. If you have any further concerns or worsening of symptoms please return to the ER for repeat evaluation Print Language: South African Disposition Disposition: Home, Self Care Discharge Date/Time: 10/20/24 23:07
[2024-10-20] MEDS: Clindamycin HCl 150 MG Capsule 300 MG PO (23:06)
== END 2024-10-20 23:07 | disposition home or self-care (01) ==
PROVIDERS: Emergency Provider Emergency Medicine; PCP Family Medicine; Visit Provider Emergency Medicine
DX: B37.31 Acute candidiasis of vulva and vagina (principal)
CPT/HCPCS: 99282

== ENCOUNTER 2025-07-24 21:18 | Emergency (ER) | payer OTHER, SELFPAY ==
[2025-07-24 21:20] VITALS: BP 151/77; PULSE 86; RESP 18; TEMP 36.9; O2SAT 98; BMI 38.9
--- OUTSIDE RECORDS SUMMARY | 2025-07-24 22:29 | XMS RPT_ITS | CCD ---
Author Organization [facility] Care Team Providers Care Chief Engineer Research Name Role Phone Unavailable Primary Care Provider Unavailabl e Valeria, [facility] Primary Care Provider [phone] Valeria, [facility] Primary Care Provider [phone] Andrew Celis Attending Unavailable Valeria, [facility] Primary Care Unavailable Valeria, [facility] Primary Care Unavailable Tonio Sahu Attending Unavailable Ruma Tuttle Admitting Unavailable RowleyRuma Attending Unavailable Valeria, [facility] Care Unavailable VALERIA, [facility] Primary Care Unavailabl e DEIRDRE ARNOLD L Referring Unavailable [place], RUMA Attending Unavailable VALERIA, [facility] Primary Care Unavailabl e DEIRDRE, ARNOLD L Referring Unavailable VALERIA, [facility] Primary Care Unavailabl e DEIRDRE, ARNOLD L Referring Unavailable [place], RUMA Attending Unavailable VALERIA, [facility] Primary Care Unavailabl e DEIRDRE, ARNOLD L Referring Unavailable VALERIA, [facility] Primary Care Unavailabl e DEIRDRE, ARNOLD L Referring Unavailable [place] RUMA Attending Unavailable VALERIA, [facility] Primary Care Unavailabl e DEIRDRE, ARNOLD L Referring Unavailable VALERIA, [facility] Primary Care Unavailabl e DEIRDRE, ARNOLD L Referring Unavailable JULIANA PRITCHARD Referring Unavailable VALERIA, [facility] Primary Care Unavailabl e JULIANA PRITCHARD Referring Unavailable VALERIA, [facility] Primary Care Unavailabl e VALERIA, [facility] Primary Care Unavailabl e VALERIA, [facility] Primary Care Unavailabl e VALERIA, [facility] Primary Care Unavailabl e TAMELA HUERTA Attending Unavailable VALERIA, [facility] Primary Care Unavailabl e TAMELA HUERTA Referring Unavailable VALERIA, [facility] Primary Care Unavailabl e DEIRDRE, ARNOLD L Attending Unavailable [place], RUMA Attending Unavailable CHANO SHAW Primary Care UnavailELLIE Lee Attending Unavailable CHANO SHAW Primary Care UnavailCHANO Ding Primary Care UnavailARNOLD Pina Attending Unavailable ARNOLD GILMORE Referring Unavailable Chano Shaw MD Primary Care Provider CHANO SHAW Primary Care Unavailable CHANO SHAW Attending Unavailable Allergies Allergy Classification Reported Allergen(s) Allergy Type Date of Onset Reaction(s) Facility POISON LOIDA EXTRACT (1 source) POISON LOIDA EXTRACT Drug Allergy 6 [facility] (20 sources) POISON LOIDA EXTRACT; Translations: [POISON LOIDA] Drug Allergy 6 [facility] (3 sources) bee stings [Other] Propensity to adverse reactions 6 Itching [facility] (20 sources) Bee Sting; Translations: [BEE STING] Propensity to adverse reactions 6 Itching [facility] (4 sources) bee venom protein (honey bee) Allergy to substance 6 Itching, Swelling [facility] (1 source) bee venom protein (honey bee) Drug allergy (disorder) 5 [facility] (3 sources) Bee pollen Propensity to adverse reactions 6 [facility] Medications Current Medications Medication Drug Class(es) Dates Sig (Normalized) Sig (Original) acetaminophen 500 mg oral tablet (1 source) Start: 01-24-2024 take 1000 mg by mouth every six hours as needed Acetaminophen Active 1000 MG PO EVERY 6 HOURS NEEDED 0 January 24, 2024 12:00am amoxicillin 875 mg / clavulanate 125 mg oral tablet (1 source) Penicillin-class Antibacterial Start: 10-08-2022 End: 10-15-2022 take 1 tablet by mouth twice daily amoxicillin-clavula gael acid (AUGMENTIN) 875-125 mg per tablet Indications: Acute otitis media, right Take 1 tablet by mouth twice daily for 7 days. 14 tablet 0 10/08/2022 10/15/2022 Active Comment on above: Take 1 tablet by tabatha twice daily for 7 days. doxycycline monohydrate 100 mg oral tablet (1 source) Tetracycline-class Drug Start: 08-28-2024 End: 09-04-2024 take 1 tablet by mouth twice daily doxycycline monohydrate 100 mg tablet Take 1 tablet by mouth two times a day for 7 days. 14 tablet 08/28/2024 09/04/2024 Active ibuprofen 600 mg oral tablet (1 source) Nonsteroidal Anti-inflammatory Drug Start: 01-24-2024 take 600 mg by mouth every six hours as needed Ibuprofen Active 600 MG PO EVERY 6 HOURS NEEDED 0 January 24, 2024 12:00am nitrofurantoin, macrocrystals 25 mg / nitrofurantoin, monohydrate 75 mg oral capsule (1 source) Nitrofuran Antibacterial Start: 04-22-2023 End: 04-27-2023 take 1 capsule by mouth twice daily at mealtime nitrofurantoin monohydrate and macrocrystal (MACROBID) 100 mg capsule Take 1 capsule by mouth twice daily with meals for 5 days. 10 capsule 0 04/22/2023 04/27/2023 Active Comment on above: Take 1 capsule by [facility] twice daily with meals for 5 days. predniSONE 20 mg oral tablet (1 source) Start: 08-28-2024 End: 09-01-2024 take 2 tablets by mouth once daily at mealtime predniSONE (DELTASONE) 20 mg tablet Take 2 tablets by mouth once daily for 4 days. Take daily with food. 8 tablet 08/28/2024 09/01/2024 Active Completed/Discontinued Medications Medication Drug Class(es) Dates Sig (Normalized) Sig (Original) [id number] 200 actuat albuterol 0.09 mg/actuat metered dose inhaler (1 source) beta2-Adrenergic Agonist Start: 11-16-2022 take 2 puff(s) by inhalation every six hours as needed for wheezing albuterol HFA (PROVENTIL HFA, VENTOLIN HFA) 90 mcg/actuation inhaler Indications: Acute cough Inhale 2 Puffs as instructed every 6 hours as needed for wheezing/shortnes s of breath. 1 Each 0 11/16/2022 Active Comment on above: Inhale 2 Puffs as in structed every 6 hours as needed for wheezing/shortness of breath. brompheniramine maleate 0.4 mg/ml / dextromethorphan hydrobromide 2 mg/ml / pseudoephedrine hydrochloride 6 mg/ml oral solution (1 source) alpha-Adrenergic Agonist, Uncompetitive [place]-Y-aspartat e Receptor Antagonist, Sigma-1 Agonist Start: 10-03-2019 End: 10-08-2022 take 5 mL by mouth four times daily as needed Brompheniramine-P seudoeph-DM (BROMFED DM) 2-30-10 mg/5 mL syrup Indications: URI with cough and congestion Take 5 mL by mouth four times daily as needed. 118 mL 0 10/03/2019 10/08/2022 Discontinued Comment on above: Take 5 mL by mouth f our times daily as needed. ferrous sulfate (11 sources) End: 08-28-2024 ferrous sulfate (IRON ORAL) Take by mouth. 08/28/2024 Discontinued (Course of therapy completed) ferrous sulfate (IRON ORAL) Take by mouth. 0 Active Comment on above: Take by mouth. fluticasone propionate 0.05 mg/actuat metered dose nasal spray (20 sources) Corticosteroid Start: End: take 2 spray(s) by mouth once daily fluticasone (FLONASE) 50 mcg/actuation nasal spray Indications: URI with cough and congestion Use 2 Sprays in each nostril once daily. Rinse mouth after use. 1 Bottle 10/03/2019 08/28/2024 Discontinued (Course of therapy completed) Comment on above: Use 2 Sprays in each nostril once daily. Rinse mouth after use. glyBURIDE 5 mg oral tablet (9 sources) Sulfonylurea Start: End: take 1 tablet by mouth once daily at breakfast glyBURIDE 5 mg tablet Take 1 tablet by mouth daily with breakfast. 30 tablet 01/01/2024 08/28/2024 Discontinued (Course of therapy completed) Comment on above: Take 1 tablet by tabatha th daily with breakfast. isopropyl alcohol 0.7 ml/ml medicated pad (20 sources) Start: End: alcohol swabs (ALCOHOL PREP PADS) Indications: Gestational diabetes mellitus (GDM) in third trimester, gestational diabetes method of control unspecified Use as directed to check glucose levels up to seven times daily. 200 Each 8 11/06/2023 08/28/2024 Discontinued (Course of therapy completed) Comment on above: Use as directed to c heck glucose levels up to seven times daily. loratadine 10 mg oral tablet (5 sources) Start: take 1 tablet by mouth once daily loratadine (CLARITIN) 10 mg tablet Indications: Rhinosinusitis Take 1 tablet by mouth once daily. 30 tablet 11 11/16/2022 Active Comment on above: Take 1 tablet by tabatha th once daily. naproxen 500 mg oral tablet (1 source) Nonsteroidal Anti-inflammatory Drug Start: 021 End: take 500 mg by mouth twice daily as needed Naproxen Discontinued 500 MG PO TWICE DAILY NEEDED May 19, 2021 12:00am January 24, 2024 6:56am PNV no.95/ferrous fum/folic ac ( ORAL) (20 sources) End: PNV no.95/ferrous fum/folic ac ( ORAL) Take by mouth. 08/28/2024 Discontinued (Course of therapy completed) PNV no.95/ferrou s fum/folic ac ( ORAL) Take by mouth. 0 Active Comment on above: Take by mouth. Problems Active Problems Problem Classification Problem Date Documented Da te Episodic/Chronic Abdominal pain (2 sources) Pelvic and perineal pain; Translations: [Left upper quadrant pain] Onset: 11-09-2024 11-18-2024 Episodic Immunizations and screening for infectious disease (5 sources) Contact with and (suspected) exposure to other viral communicable diseases; Translations: [Contact with or exposure to other viral diseases] Onset: 12-08-2024 09-21-2023 Episodic Other complications of (20 sources) Maternal obesity complicating , childbirth and the puerperium, antepartum; Translations: [Obesity complicating , second trimester] Onset: 08-14-2023 09-04-2023 Chronic Other complications of (20 sources) Anemia in mother complicating , childbirth AND/OR puerperium; Translations: [Anemia complicating , second trimester] Onset: 08-14-2023 08-14-2023 Chronic Other complications of (2 sources) Obesity complicating , third trimester; Translations: [Obesity complicating , childbirth, or the puerperium, antepartum condition or complication] Onset: 01-10-2024 12-20-2023 Chronic Other complications of (1 source) Obesity complicating , second trimester; Translations: [Obesity affecting in second trimester, unspecified obesity type] Onset: 11-27-2023 Chronic Other complications of (1 source) Anemia complicating , third trimester; Translations: [Anemia complicating , third trimester] Onset: 12-06-2023 Chronic Other complications of (5 sources) High risk ; Translations: [Supervision of high risk , unspecified, third trimester] 12-06-2023 Episodic Other lower respiratory disease (1 source) Cough; Translations: [Acute cough] 11-16-2022 Episodic Other non-traumatic joint disorders (1 source) Pain in left shoulder; Translations: [Pain in joint, shoulder region] 10-22-2022 Episodic Other nutritional; endocrine; and metabolic disorders (1 source) Body mass index 30+ - obesity; Translations: [Body mass index (BMI) 35.0-35.9, adult] 12-20-2023 Chronic Other nutritional; endocrine; and metabolic disorders (1 source) Body mass index (BMI) 35.0-35.9, adult; Translations: [BMI 35.0-35.9,adult] Onset: 01-10-2024 Chronic Other screening for suspected conditions (not mental disorders or infectious disease) (9 sources) Patient encounter status; Translations: [Encounter for other specified screening] Onset: 12-08-2024 09-04-2023 Episodic Other upper respiratory infections (1 source) Chronic sinusitis; Translations: [Chronic sinusitis, unspecified] 08-28-2024 Chronic Otitis media and related conditions (1 source) Acute right otitis media; Translations: [Otitis media, unspecified, right ear] Episodic Residual codes; unclassified (2 sources) Gestation period, 19 weeks; Translations: [19 weeks gestation of ] 09-04-2023 Episodic Residual codes; unclassified (1 source) Gestation period, 29 weeks; Translations: [29 weeks gestation of ] 11-19-2023 Episodic Residual codes; unclassified (1 source) Gestation period, 30 weeks; Translations: [30 weeks gestation of ] 11-22-2023 Episodic Residual codes; unclassified (1 source) Gestation period, 32 weeks; Translations: [32 weeks gestation of ] 12-06-2023 Episodic Residual codes; unclassified (1 source) Gestation period, 34 weeks; Translations: [34 weeks gestation of ] 12-20-2023 Episodic Residual codes; unclassified (1 source) Gestation period, 35 weeks; Translations: [35 weeks gestation of ] 12-27-2023 Episodic Residual codes; unclassified (1 source) Gestation period, 37 weeks; Translations: [37 weeks gestation of ] 01-10-2024 Episodic Residual codes; unclassified (2 sources) Gestation period, 38 weeks; Translations: [38 weeks gestation of ] 01-17-2024 Episodic Residual codes; unclassified (1 source) Gestation period, 39 weeks; Translations: [39 weeks gestation of ] 01-22-2024 Episodic Residual codes; unclassified (1 source) 39 weeks gestation of ; Translations: [ state, incidental] 01-24-2024 Episodic Residual codes; unclassified (1 source) Influenza vaccination declined; Translations: [Immunization not carried out because of patient refusal] 12-03-2024 Episodic Residual codes; unclassified (2 sources) Immunization not carried out because of patient refusal; Translations: [Immunization not carried out because of patient refusal] Onset: 12-08-2024 Episodic Urinary tract infections (1 source) Acute urinary tract infection; Translations: [Urinary tract infection, site not specified] 04-22-2023 Episodic Past or Other Problems Problem Classification Problem Date Documented Da te Episodic/Chronic Diabetes mellitus without complication (20 sources) Increased glucose level; Translations: [Other abnormal glucose] Onset: 10-31-2023 10-31-2023 Episodic Diabetes or abnormal glucose tolerance complicating ; childbirth; or the puerperium (20 sources) Gestational diabetes mellitus; Translations: [Gestational diabetes mellitus in , unspecified control] Onset: 11-06-2023 11-11-2023 Episodic Other and unspecified benign neoplasm (3 sources) Benign neoplasm of soft tissue; Translations: [Melanocytic nevi, unspecified] Onset: 02-20-2017 07-20-2022 Episodic Other complications of (20 sources) care status; Translations: [Supervision of with insufficient care, second trimester] Onset: 08-14-2023 08-14-2023 Episodic Other complications of (1 source) Supervision of high risk , unspecified, third trimester; Translations: [Encounter for supervision of high risk in third trimester, antepartum] Onset: 01-10-2024 Episodic Other complications of (1 source) Supervision of with insufficient care, unspecified trimester; Translations: [Late care affecting , antepartum] Onset: 11-22-2023 Episodic Other non-traumatic joint disorders (1 source) Pain in right wrist; Translations: [Pain in right wrist] Onset: 07-22-2024 Episodic Other and delivery including normal (8 sources) Normal ; Translations: [Encounter for supervision of other normal , second trimester] Onset: 01-29-2024 09-04-2023 Episodic Residual codes; unclassified (9 sources) Gestation period, 16 weeks; Translations: [16 weeks gestation of ] Onset: 08-14-2023 08-14-2023 Episodic Residual codes; unclassified (1 source) 37 weeks gestation of ; Translations: [37 weeks gestation of ] Onset: 01-10-2024 Episodic Residual codes; unclassified (1 source) 34 weeks gestation of ; Translations: [34 weeks gestation of ] Onset: 12-20-2023 Episodic Sprains and strains (4 sources) Strain of calf muscle; Translations: [Strain of other muscle(s) and tendon(s) at lower leg level, left leg, initial encounter] Onset: 05-29-2021 05-19-2021 Episodic Results Test Name Value Interpretation Reference Range [facility] 36 12-09-2024 36 Message released to patient as written. ----- Message from Chano Shaw MD sent at 12/09/2024 5:29 AM EST ----- Blood sugar and chemistry are normal. Cholesterol total and good are good, bad is borderline and triglycerides are borderline very strict low-fat low-carb diet and recheck in 1 year. Left a message to return call. Patient's further questions if applicable: No further questions, Patient verbalized understanding. Were all questions from office addressed or relayed to the patient from encounter: yes Normal [facility] 36 ----- Message from Chano Shaw MD sent at 12/09/2024 5:29 AM EST ----- Blood sugar and chemistry are normal. Cholesterol total and good are good, bad is borderline and triglycerides are borderline very strict low-fat low-carb diet and recheck in 1 year. Left a message to return call. Normal [facility] Office Visiton 12-08-2024 Follow-up visit [id number] Victorino Driscoll 1990 F Date Provider Department Center 12/08/2024 [id number] Family History Problem Relation Age of Onset Hyperlipidemia Maternal Grandmother High Blood Pressure Maternal Grandmother Atrial fibrillation Maternal Grandmother COPD Maternal Grandfather No Known Problems Father Diabetes Maternal Grandmother No Known Problems Paternal Grandmother No Known Problems Paternal Grandfather COPD Maternal Grandmother No Known Problems Mother Family Status - Relation Status Age at Maternal Grandmother Alive Maternal Grandfather Alive Father Alive Paternal Grandmother Paternal Grandfather Mother Alive Level of Service:73970 [place] INITIAL PREVENTIVE MEDICINE NEW PT AGE 18-39YRS Reason for Visit and Comments: New Patient [542] Annual Exam [83] Blood Work [667132] Health Maintenance [872] - Mmr vaccine- done as child Varicella vaccine- had chicken pox Hep b vaccine- agree Flu vaccine- refuse 3rd covid vaccine- not done and will not get any more Normal [facility] Progress Noteon 12-08-2024 Progress Note Patient verified by last name and date of . Normal [facility] Progress Note Patient verified by last name and . After obtaining consent, and per orders of Dr. Shaw, injection of Hep B given in the Right Deltoid by Kimberli Hood. Patient instructed to report any adverse reactions immediately. Normal [facility] Progress Note 12/08/2024 Pelon Driscoll (: 1990) is a 34 y.o. female , Established patient, here for evaluation of the following chief complaint(s): New Patient, Annual Exam, Blood Work, and Health Maintenance (Mmr vaccine- done as child/Varicella vaccine- had chicken pox/Hep b vaccine- agree/Flu vaccine- refuse/3rd covid vaccine- not done and will not get any more ) ASSESSMENT/PLAN: 1. Annual physical exam Comments: Healthy female 2. Screening for diabetes mellitus - Comprehensive metabolic panel 3. Screening for lipid disorders - Lipid panel 4. Immunization due - HepB-CPG 5. Influenza vaccine refused Follow up in about 1 year (around 12/08/2025). SUBJECTIVE/OBJECTIVE: CHAPO Mejia comes in today for an annual exam, she has no complaints she is on no medications and she is refusing well female exams. She needs fasting lab work and she is agreeable for a hepatitis B series Review of Systems Constitutional: Negative for chills and fever. Respiratory: Negative for shortness of breath. Cardiovascular: Negative for chest pain and palpitations. Gastrointestinal: Negative for abdominal pain, blood in stool, constipation and diarrhea. Genitourinary: Negative for dyspareunia, dysuria, frequency, hematuria and urgency. Neurological: Negative for weakness and numbness. Psychiatric/Behavioral : Negative for dysphoric mood. The patient is not nervous/anxious. Vitals: 12/08/24 0657 BP: 106/69 Pulse: 75 SpO2: 96% Weight: 225 lb (102 kg) Height: 5' 5 (1.651 m) Physical Exam Vitals and nursing note reviewed. Constitutional: General: She is not in acute distress. Appearance: Normal appearance. HENT: Head: Normocephalic. Right Ear: Tympanic membrane, ear canal and external ear normal. Left Ear: Tympanic membrane, ear canal and external ear normal. Mouth/Throat: Mouth: Mucous membranes are moist. Pharynx: Oropharynx is clear. Eyes: Extraocular Movements: Extraocular movements intact. Pupils: Pupils are equal, round, and reactive to light. Neck: Thyroid: No thyromegaly. Cardiovascular: Rate and Rhythm: Normal rate and regular rhythm. Heart sounds: Normal heart sounds. No murmur heard. Pulmonary: Effort: Pulmonary effort is normal. Breath sounds: Normal breath sounds. Abdominal: General: Bowel sounds are normal. Palpations: Abdomen is soft. Musculoskeletal: General: Normal range of motion. Cervical back: Normal range of motion. Lymphadenopathy: Cervical: No cervical adenopathy. Skin: General: Skin is warm and dry. Neurological: General: No focal deficit present. Mental Status: She is alert and oriented to person, place, and time. Psychiatric: Mood and Affect: Mood normal. An electronic signature was used to authenticate this note. Chano Shaw MD 12/08/2024 7:46 AM 36on 11-18-2024 36 S: Patient spoke wit h [facility] nurse regarding rib pain B: Onset of symptoms/concern 1 week A: Patient reports left side rib pain on left side. Around side into back where breast to midway down where ribs end. Started 1 week ago but has become more constant since yesterday. Is speaking in complete sentences throughout triage. Denies known injury, difficulty breathing, abnormal sweating, nausea, or vomiting. R: Discussed UC today to be seen. Has not been seen in the office since . Appointment to re-establish care with Dr. Shaw scheduled for 12-08-24 at 7am. Added to wait-list. You will want to arrive 10 minutes early, bring your photo ID, insurance card, and medication list. Patient understands care advice. No further needs at this time. Patient instructed to call back with new/worsening symptoms, concerns or questions. Reason for Disposition All other patients with chest pain (Exception: Fleeting chest pain lasting a few seconds.) Chest pain lasting longer than 5 minutes and occurred in last 3 days (72 hours) (Exception: Feels exactly the same as previously diagnosed heartburn and has accompanying sour taste in mouth.) Protocols used: Chest [id number] CNOVon 11-18-2024 CN Office Visit (UCWSTR ) PELON DRISCOLL ([id number]) 1990 F Date Time Provider Department 11/18/24 5:00 PM ARYAN ALEMAN [facility] During your visit today, we recorded the following information about you: Temperature Pulse Respiration Blood pressure 97.4 degrees 68/minute 20/minute 100/68 Weight 103.5 kg Aryan Aleman MD 11/18/2024 5:30 PM Signed Patient presents with: Abdominal Pain: Left abdominal pain radiating into back x 2 weeks HPI: Abdominal pain: Duration: bothering her for a couple weeks, constant since last night Location: left upper quadrant Character: dull and aching Radiation: to the left mid back Aggravating: bending Relieving: Pain relievers: ibuprofen. Denies any regular NSAID use. Associated: had pyrosis after raspberry lemonade, patient and family have had cough/rhinorrhea, started menstrual bleeding yesterday Pertinent negatives: Denies fever, chest pain, shortness of breath, acid brash, nausea, vomiting, diarrhea, constipation, melena, hematochezia, dysuria, urinary frequency, dizziness No alcohol use. No personal or family history of kidney stones PAST MEDICAL HISTORY Diagnosis Date Anemia complicating , second trimester 08/14/2023 NEGATIVE MEDICAL HISTORY PAST SURGICAL HISTORY Procedure Laterality Date NONE MEDICATIONS: No prescriptions on file. ALLERGIES: ALLERGIES Allergen Reactions Bee Sting Itching Poison [place] VITALS: BP 100/68 Pulse 68 Temp 36.3 ?C (97.4 ?F) Resp 20 Wt 103.5 kg (228 lb 2.8 oz) LMP 08/12/2024 (Approximate) SpO2 98% BMI 37.97 kg/m? PHYSICAL EXAM: GEN: pleasant, no acute distress, alert HEENT: PERRL, EOMI, MMM, no pharyngeal erythema NECK: supple, no lymphadenopathy, no thyromegaly HEART: regular rate, regular rhythm, no murmurs LUNGS: clear to auscultation, no wheezes or crackles, no increased WOB CHEST: left posterior 11-12 rib discomfort with palpation. No anterior rib tenderness. ABD: soft, non-distended, no masses palpated, tender LUQ, discomfort mid epigastrium EXT: no clubbing, no cyanosis, no edema ASSESSMENT/PLAN: 1. Left upper quadrant pain - ICD9: 789.02, ICD10: R10.12 Differential discussed with patient: strain from recent coughing, gastritis, splenomegaly, renal calculus among other conditions. She declines orders for LUQ ultrasound and blood tests to complete later this week when available. She has follow up scheduled with her PCP for the pain and would like to wait until then. She will proceed to the ER with increasing pain, hematemesis, hematochezia, shortness of breath, dizziness, chest pain, or lethargy. She may consider starting omeprazole while awaiting follow up with her PCP. Aryan Aleman MD Allergies As of Date: 11/18/2024 Noted Allergy Reaction BEE STING 07/03/2006 9 - Itching POISON LOIDA 07/03/2006 Date Reviewed: 11/18/2024 Reviewed by: Luci Turpin MA - Fully Assessed Reason for Visit: Abdominal Pain [1] Cmt: Left abdominal pain radiating into back x 2 weeks Primary Visit Diagnosis:Left upper quadrant pain [R10.12] Problem List As Of Date 11/18/2024 Noted Resolved Limited care in second trimester [O09.*08/14/2023 Obesity complicating , second trimeste*08/14/2023 Anemia complicating , second trimester*08/14/2023 Elevated glucose [R73.09] 10/31/2023 Gestational diabetes mellitus, class A1 [O24.41*11/06/2023 Level of Service: OFFICE/OUTPATIENT [facility] 30 MINUTES [09091] Encounter Status:Closed by ARYAN ALEMAN on 11/18/24 Normal [facility] Emergency Department Summary on 10-20-2024 Emergency Department Summary [facility] Medical Records Department [address] [place] [id number] Emergency Department Summary 10/20/24 MR#: [id number] Acct: [id number] Name: PELON DRISCOLL Rep #: [id number] : 1990 34 From: Andrew Celis DO PCP: Dr. Chano Shaw MD Status:DEP ER Location: ED HPI History of Present Illness Chief Complaint: Wound Informant: patient Narrative Narrative: Patient is a 34-year-old female who denies any significant past medical history. She states 1 to 2 days ago she noticed that an area along the left genital/labial region was sore. She states that she used her phone to take a picture of it and her it looked like there was a laceration. She states that she gave vaginally but this was 9 months ago and she denies any rough sex or vaginal trauma recently. She denies any active bleeding or discharge but secondary to the persistent pain she presents for evaluation. [facility] Medical History (spontaneous vaginal delivery) Gestational diabetes, diet controlled 39 weeks gestation of Gestational diabetes Home Medications ???Medication ???Instructions ???Recorded ???Last Taken ???Type acetaminophen 500 mg tablet 1,000 mg (2 x 500 mg) PO Q6H PRN 01/24/24 Unknown Rx PRN Pain 1-10 Or Fever #0 tabs ibuprofen 600 mg tablet 600 mg PO Q6H PRN PRN Pain Score 01/24/24 Unknown Rx 1-10 #0 tabs clindamycin HCl 300 mg capsule 300 mg PO 4X/DAY 7 days #28 caps 10/20/24 Unknown Rx ketoconazole 2 % topical cream 1 applic topical BID 10 days #30 10/20/24 Unknown Rx grams Allergy/AdvReac Type Severity Reaction Status Date / Time bee venom protein (honey bee) Allergy Swelling Verified 10/20/24 21:26 Social History Smoking Status: Never smoker ROS ROS ED Constitutional Constitutional ED: Denies chills or fever(s) ENT ENT ED: Denies sore throat Cardiovascular Cardiovascular: Denies chest pain Respiratory/Chest Respiratory/Chest: Denies cough or dyspnea Gastrointestinal Gastrointestinal: Denies abdominal pain, diarrhea, nausea or vomiting Genitourinary Genitourinary ED: Reports other Details: Positive vaginal pain ; Denies dysuria, hematuria or urinary frequency Musculoskeletal Musculoskeletal: Denies back pain or myalgias Integumentary Denies rash Neurologic Neurologic: Denies headache(s) Hematologic/Lymphatic Hematologic/Lymphatic: Denies easy bleeding or easy bruising EXAM Physical Exam Const Vital Signs: 10/20/24 21:23 Temperature 98.4 F Temperature Source Oral Pulse Rate 87 Respiratory Rate 16 Blood Pressure 147/75 H Blood Pressure Mean 99 Pulse Ox 98 Oxygen Delivery Method Room Air Positive well nourished, well developed and obese General Appearance ED: well developed Nutritional Appearance: obese HEENT HEENT Narrative: Normocephalic atraumatic Eyes PERRL and EOMs intact bilaterally General Eye ED: Negative for scleral icterus Neck supple Resp normal respiratory effort and clear to auscultation bilaterally Cardio regular rate and regular rhythm GI normal to inspection, nondistended, normoactive bowel sounds, non-tender, non-distended and no masses Auscultation: normoactive bowel sounds Palpation: soft Narrative: Along the lower third lateral aspect of the left labia there is a area of mild erythema and ulceration with faint overlying white hue. This is concerning for developing abscess versus cutaneous candidiasis. No kissing lesions are noted to suggest STD/herpes zoster There is no induration or fluctuance to suggest active abscess no lymphangitic streaking no crepitance to suggest Aruna's gangrene. Extremity normal to inspection Neuro oriented x3, CN's II-XII intact bilaterally and no sensory deficits noted Sensorium / Orientation: alert Motor Exam: strength 5/5 throughout Psych mental status grossly normal Skin Skin Narrative: Soft tissue changes along the left labia as documented above MDM MDM MDM Narrative Medical decision making narrative: Patient arrived to the ER slightly hypertensive but otherwise with stable vitals. She had concern for a vaginal laceration but denied any recent 100 of sex or injury. Physical exam showed mild soft tissue erythema with faint overlying hue most consistent with vaginal/vulvar candidiasis. Without kissing lesions I had low concern for herpes zoster and there is no discharge to suggest gonorrhea or chlamydia. There is no obvious induration or fluctuance but there is mild ulceration of the tissue concerning for developing soft tissue infection such as cellulitis or early abscess. The patient does not have physical exam findings concerning for Aruna's gangrene and wi (more content not included)... [facility] ([facility] ) PELON DRISCOLL ([id number]) 1990 F Date Time Provider Department 08/28/24 10:30 AM NEGRO ALBERTO [facility] During your visit today, we recorded the following information about you: Temperature Pulse Respiration Blood pressure 96.9 degrees 75/minute 18/minute 115/79 Weight Last Period 100.2 kg 08/12/24 Negro Alberto PA 08/28/2024 10:48 AM Signed This note was created using [employer]. Subjective Pelon Driscoll is a 33 year old female. HPI 33-year-old female presents for congestion, cough x 1 week. Patient states she has had a cough for the past week. She states it is productive. She has some nasal congestion. No fevers. No chest pain or shortness of breath. No history of COPD or asthma. She was exposed to pneumonia and bronchitis in her work. She has been taking [id number] honey cough medication with minimal improvement. No other complaint. PAST MEDICAL HISTORY Diagnosis Date Anemia complicating , second trimester 08/14/2023 NEGATIVE MEDICAL HISTORY PAST SURGICAL HISTORY Procedure Laterality Date NONE ALLERGIES Bee Sting and Poison [place] MEDICATIONS predniSONE (DELTASONE) 20 mg tablet Take 2 tablets by mouth once daily for 4 days. Take daily with food. doxycycline monohydrate 100 mg tablet Take 1 tablet by mouth two times a day for 7 days. FAMILY HISTORY Problem Relation Age of Onset No Known Problems Mother No Known Problems Father Diabetes Maternal Grandmother Hypertension Maternal Grandmother COPD Maternal Grandfather No Known Problems Paternal Grandmother No Known Problems Paternal Grandfather Social History Tobacco Use Smoking status: Never Smokeless tobacco: Never Vaping Use Vaping status: Some Days Substance Use Topics Alcohol use: Yes Comment: OCCASIONALLY, NOT WHILE Drug use: No Review of Systems Constitutional: Negative for chills and fever. HENT: Positive for congestion. Negative for ear pain and sore throat. Respiratory: Positive for cough. Negative for shortness of breath. Cardiovascular: Negative for chest pain. Gastrointestinal: Negative for diarrhea and vomiting. Objective BP 115/79 Pulse 75 Temp 36.1 ?C (96.9 ?F) Resp 18 Wt 100.2 kg (220 lb 14.4 oz) LMP 08/12/2024 (Approximate) SpO2 97% No BMI 36.76 kg/m? Physical Exam Vitals and nursing note reviewed. Constitutional: General: She is not in acute distress. Appearance: Normal appearance. She is not toxic-appearing. HENT: Right Ear: Tympanic membrane and ear canal normal. Left Ear: Ear canal normal. Nose: Congestion present. Mouth/Throat: Mouth: Mucous membranes are moist. Eyes: Conjunctiva/sclera: Conjunctivae normal. Cardiovascular: Rate and Rhythm: Normal rate and regular rhythm. Pulmonary: Effort: Pulmonary effort is normal. Breath sounds: Normal breath sounds. No wheezing, rhonchi or rales. Skin: General: Skin is warm and dry. Neurological: Mental Status: She is alert. Assessment and Plan ASSESSMENT/PLAN: 1. Sinobronchitis - ICD9: 473.9, 490, ICD10: J32.9, J40 -Discussed CXR with the patient, but she prefers to avoid radiation, also has her child with her today. -Will treat with prednisone and doxycycline. If symptoms do not improve, needs follow-up with PCP. Patient agreeable. - Will begin treatment with Doxycycline - Supportive care with plenty of fluids, rest, and analgesia prn. Diagnosis and treatment plan were discussed and questions were answered to the patient's satisfaction. Pt acknowledged understanding of concepts and follow up plan. Specific signs and symptoms that would indicate the need for higher level of care were discussed in detail warranting prompt ER evaluation. ROSANA Cates Allergies As of Date: 08/28/2024 Noted Allergy Reaction BEE STING 07/03/2006 9 - Itching POISON LOIDA 07/03/2006 Date Reviewed: 08/28/2024 Reviewed by: Myrna Adams LPN - Fully Assessed Reason for Visit: Cough [28] Cmt: Chest congestion, SOB, yellow phlegm, x 1 wk Exposed at work Primary Visit Diagnosis:Sinobronchit is [J32.9, J40] Order(s):predniSONE (DELTASONE) 20 mg tabletTake 2 tablets by mouth once daily for 4 days. Take daily with food.Disp: 8 tabletRfl: 0 doxycycline monohydrate 100 mg tabletTake 1 tablet by mouth two times a day for 7 days.Disp: 14 tabletRfl: 0 Prescriptions as of 08/28/2024 - predniSONE (DELTASONE) 20 mg tablet Take 2 tablets by mouth once daily for 4 days. Take daily with food. - doxycycline monohydrate 100 mg tablet Take 1 tablet by mouth two times a day for 7 days. Problem List As Of Date 08/28/2024 Noted Resolved Limited care in second trimester [O09.*08/14/2023 Obesity complicating , second trimeste*08/14/2023 Anemia complicating , second trimester*08/14/2023 Elevated glucose [R73.09] (more content not included)... Normal [facility] Emergency Department Summary on 06-30-2024 Emergency Department Summary [facility] Medical Records Department [address] [place] [address] Emergency Department Summary 06/30/24 MR#: [id number] Acct: [id number] Name: PELON DRISCOLL Rep #: [id number] : 1990 33 From: Tonio Sullivan PCP: Dr. Chano Shaw MD Status:DEP ER Location: ED HPI History of Present Illness Chief Complaint: Upper Extremity Injury Informant: patient Narrative Narrative: [id number] female presents bilateral wrist pains with tingling to the hand for a while. Also admitted bilateral shoulder pains. She works at [employer]. Reports a lot of repetitive motions. She states pain comes and goes. She has not had this evaluated. She states she is concern for carpal tunnel syndrome. [facility] Medical History (spontaneous vaginal delivery) Gestational diabetes, diet controlled 39 weeks gestation of Gestational diabetes Home Medications ???Medication ???Instructions ???Recorded ???Last Taken ???Type acetaminophen 500 mg tablet 1,000 mg (2 x 500 mg) PO Q6H PRN 01/24/24 Unknown Rx PRN Pain 1-10 Or Fever #0 tabs ibuprofen 600 mg tablet 600 mg PO Q6H PRN PRN Pain Score 01/24/24 Unknown Rx 1-10 #0 tabs Allergy/AdvReac Type Severity Reaction Status Date / Time bee venom protein (honey bee) Allergy Swelling Verified 06/30/24 21:22 Social History Smoking Status: Never smoker ROS ROS ED Constitutional Constitutional ED: Denies fever(s) ENT ENT ED: Denies sore throat Cardiovascular Cardiovascular: Denies chest pain Respiratory/Chest Respiratory/Chest: Denies cough Gastrointestinal Gastrointestinal: Denies abdominal pain, nausea or vomiting Musculoskeletal Musculoskeletal: Reports extremity pain; Denies back pain or neck pain Integumentary Denies rash or wounds Neurologic Neurologic: Denies headache(s), paresthesias or weakness EXAM Physical Exam Const Vital Signs: 06/30/24 21:22 Temperature 97 F L Temperature Source Temporal Pulse Rate 71 Respiratory Rate 18 Blood Pressure 128/75 H Blood Pressure Mean 92 Pulse Ox 96 Oxygen Delivery Method Room Air Positive well nourished and well developed General Appearance ED: well developed and NAD HEENT Reports moist mucous membranes normocephalic and atraumatic Eyes EOMs intact bilaterally and conjunctivae normal General Eye ED: Yes normal appearance of both eyes Neck no lymphadenopathy and supple General: Negative for tenderness Chest Wall Chest: Negative for tenderness Resp normal respiratory effort and normal air movement Effort and Inspection: symmetric chest movement; Negative for respiratory distress Cardio regular rate, regular rhythm and no murmurs Peripheral Pulses: pulses 2+ throughout GI normal to inspection, nondistended, normoactive bowel sounds and non-tender Palpation: Negative for guarding or rebound tenderness present Back/Spine no CVA tenderness and no thoracic nor lumbar tenderness Extremity normal to inspection Extremity Narrative: Negative Tinel's at bilateral wrists. Bilateral positive Phalen's test with pain that would go to her thumbs. There is no weakness to forensic science examiner strength. Bilateral shoulder exam negative empty can negative Apley's test. No pain with internal/external rotation of shoulder against resistance. Soft compartments. Neuro vas intact distally. General Extremety ED: Negative for edema or tenderness General Extremity: Negative for edema Neuro oriented x3 and no sensory deficits noted Sensorium / Orientation: awake and alert Skin no rashes or lesions noted and no wounds MDM MDM MDM Narrative Medical decision making narrative: Interventions / MDM: Differential diagnosis: Carpal tunnel syndrome, cervical strain. Diagnosis considered but do not suspect: No clinical or dislocation. My EKG interpretation: N/A Imaging independently reviewed and interpreted by myself: N/A External documents reviewed: N/A Test considered but not ordered:N/A ED course: Clinically carpal tunnel syndrome positive Phalen's test. Bilateral shoulder strain. Provided Velcro wrist splints. She declined medication knee. She has Tylenol and Motrin at home. She can follow-up orthopedics outpatient, along with her PCP. All questions were answered. Re-evaluation: stable Disposition discussed with patient/family/signifi cant other: Patient Case discussed with consulting clinician: N/A This note was generated with [employer] dictation software. It may contain incorrect words, spelling, and punctuation that were not noted in checking the note before signing. Discharge Plan Triage Chief Complaint: Upper Extremity Injury ED Provider: Tonio Sahu Dx/Rx/DC Orders Clinical Impre (more content not included)... Normal [facility] Bedside Glucoseon 01-24-2024 FINGERSTICK GLU 112 mg/dL High 74-106 [facility] Comment on above: Result Comment: ARELIS GEMENT OF PATIENT CARE PER NURSING PROTOCOL Performed By: #### L 501.080 #### [facility] [address] [place], [address] Thin prep Papanicolaou smear with manual screeningOrdered By: Ruma Tuttle on 01-24-2024 Thin prep Papanicolaou smear with manual screening 112 mg/dL 74-106 [facility] Comment on above: MANAGEMENT OF PATIEN T CARE PER NURSING PROTOCOL Bedside Glucoseon 01-23-2024 FINGERSTICK GLU 113 mg/dL High 74-106 [facility] Comment on above: Result Comment: ARELIS GEMENT OF PATIENT CARE PER NURSING PROTOCOL Performed By: #### L 501.080 #### [facility] [address] [place], [address] FINGERSTICK GLU 86 mg/dL Normal 74-106 [facility] Comment on above: Result Comment: ARELIS GEMENT OF PATIENT CARE PER NURSING PROTOCOL Performed By: #### L 501.080 #### [facility] [address] [place], [address] FINGERSTICK GLU 93 mg/dL Normal 74-106 [facility] Comment on above: Result Comment: ARELIS GEMENT OF PATIENT CARE PER NURSING PROTOCOL Performed By: #### L 501.080 #### [facility] [address] [place], [address] Operative Reporton 4 Operative Report [facility] Medical Records Department [address] [place] [address] Operative Report 01/23/24 0527 MR#: [id number] Acct: [id number] Name: PELON DRISCOLL JESSIE Rep #: [id number] : 1990 33 From: Ruma Tuttle MD PCP: Dr. Chano Shaw MD Status:ADM [place] Location: NI014-7 Assessment Plan (1) (spontaneous vaginal delivery): (2) Gestational diabetes, diet controlled: QUALIFIERS: Trimester: third trimester Qualified Code(s): O24.410 - Gestational diabetes mellitus in , diet controlled (3) 39 weeks gestation of : Maternal Data Information Final WEI: 01/29/24 Gestational age: 39+1 Vaginal Delivery Maternal Presentation Maternal Presentation: Medically Indicated Induction Maternal Presentation: Gestational diabetes Type of Induction: Pitocin and Amniotomy Operative Information Date of Procedure: 01/23/24 Pre-Operative Diagnosis: IUP at 39 weeks, gestational diabetes Post-Operative Diagnosis: same Surgery / Procedure Performed: Spontaneous Vaginal Delivery Type of Anesthesia: Epidural Drain: Valverde to straight drain Estimated Blood Loss: 150 cc Time of Delivery: 05:06 Findings Description of Procedure: After reaching complete dilatation the patient pushed for 25 minutes over an intact peritoneum. Delivered OA. The anterior and posterior shoulder delivered easily. There was a true knot in the co rd. Cord was clamped and cut. Cord blood was collected. No repair needed Presentation: Vertex and POWER Amniotic Membrane Rupture Type: Artificial Time of Membrane Rupture: 1923 Amniotic Fluid Description: Clear Placental Delivery Description: Spontaneous Placenta Disposition: [facility] Cord Vessel Description: 3 Vessels Cord Entanglement: True Knot(s) (x1) Nuchal Cord Compression: Without compression A Gender: Male (1 minute): 8 (5 minute): 9 Delayed Cord Clamping: Yes Post Vaginal Delivery Medications Given After Delivery: IV Pitocin and IM Pitocin Episiotomy Description: None Laceration: None Complication Complications: None 01/23/24 0532 Cosigner Signature (if applicable): CC: Dr. Chano Shaw MD; Dr. Ruma Tuttle MD Signed Normal [facility] Absolute lymphocyte countOrd ered By: Ruma Tuttle on 01-22-2024 Lymphocytes Auto (Unsp spec) [#/Vol] 1.32 10*3/uL 0.83-4.51 [facility] Automated blood erythrocyte count (number/volume)Ordered By: Ruma Tuttle on 01-22-2024 RBC (Bld) [#/Vol] 3.95 10*6/uL Low 4.2-5.4 [facility] Comment on above: Performed By: #### B TS, L100.0100 #### [facility] [address] [place], [address] Automated blood hematocrit ( percentage)Ordered By: Ruma Tuttle on 01-22-2024 Hematocrit (Bld) [Volume fraction] 36.3 % Low 37-47 [facility] Comment on above: Performed By: #### B TONI, L100.0100 #### [facility] [address] [place], [address] Automated lymphocyte count a s percentage of total leukocytesOrdered By: Ruma Tuttle on 01-22-2024 Lymphocytes/100 WBC Auto (Unsp spec) 16.9 % 19-41 [facility] Basophil percentageOrdered B y: Ruma Tuttle on 01-22-2024 Basophils/100 WBC (Bld) 0.4 % Normal 0-1 [facility] Comment on above: Performed By: #### Kimber DUMONT, L100.0100 #### [facility] [address] [place], [address] Eosinophils/100 WBC (Bld) 1.4 % Normal 0-5 [facility] Comment on above: Performed By: #### Kimber DUMONT, L100.0100 #### [facility] [address] [place], [address] Hemoglobin (Bld) [Mass/Vol] 12.5 g/dL Normal 12.0-15.0 [facility] Comment on above: Performed By: #### B TONI, L100.0100 #### [facility] [address] [place], [address] Monocytes/100 WBC (Bld) 7.0 % Normal 0-10 [facility] Comment on above: Performed By: #### B TONI, L100.0100 #### [facility] [address] [place], [address] Neutrophils/100 WBC (Bld) 74.0 % High 47-70 [facility] Comment on above: Performed By: #### B TONI, L100.0100 #### [facility] [address] [place], [address] WBC (Bld) [#/Vol] 7.8 10*3/uL Normal 4.4-11.0 [facility] Comment on above: Performed By: #### B TONI, L100.0100 #### [facility] [address] [place], [address] Neutrophils (Bld) [#/Vol] 5.8 10*3/uL 2.0-7.7 [facility] Bedside Glucoseon 01-22-2024 FINGERSTICK GLU 84 mg/dL Normal 74-106 [facility] Comment on above: Result Comment: ARELIS GEMENT OF PATIENT CARE PER NURSING PROTOCOL Performed By: #### L 501.080 #### [facility] [address] [place], [address] FINGERSTICK GLU 64 mg/dL Low 74-106 [facility] Comment on above: Result Comment: ARELIS GEMENT OF PATIENT CARE PER NURSING PROTOCOL Performed By: #### B TONI, L100.0100 #### [facility] [address] [place], [address] FINGERSTICK GLU 78 mg/dL Normal 74-106 [facility] Comment on above: Result Comment: ARELIS GEMENT OF PATIENT CARE PER NURSING PROTOCOL Performed By: #### L 501.080 #### [facility] [address] [place], [address] FINGERSTICK GLU 104 mg/dL Normal 74-106 [facility] Comment on above: Result Comment: ARELIS GEMENT OF PATIENT CARE PER NURSING PROTOCOL Performed By: #### L 501.080 #### [facility] [address] [place], [address] CBC W/Diff, Automatedon 01-05 Absolute Lymph 1.32 X10 3/uL Normal 0.83-4.51 [facility] Comment on above: Performed By: #### B TONI, L100.0100 #### [facility] [address] [place], [address] Absolute Neut 5.8 X10 3/uL Normal 2.0-7.7 [facility] Comment on above: Performed By: #### Kimber DUMONT, L100.0100 #### [facility] [address] [place], [address] IG% 0.300 Normal 0.0-0.9 [facility] Comment on above: Result Comment: IG% - Immature Granulocytes (promyelocytes, myelocytes and metamyelocytes) > 1% indicates that a LEFT SHIFT is Present. Performed By: #### Kimber DUMONT, L100.0100 #### [facility] [address] [place], [address] Lymphocytes/100 WBC (Bld) 16.9 % Low 19-41 [facility] Comment on above: Performed By: #### Kimber DUMONT, L100.0100 #### [facility] [address] [place], [address] Nucleated RBC (Bld) [#/Vol] 0 10*3/uL Normal 0-5 [facility] Comment on above: Performed By: #### Kimber DUMONT, L100.0100 #### [facility] [address] [place], [address] RDW SD 45.3 fl High 35.1-43.9 [facility] Comment on above: Performed By: #### Kimber DUMONT, L100.0100 #### [facility] [address] [place], [address] CBC W/Diff, AutomatedOrdered By: Ruma Tuttle on 01-22-2024 MCH (RBC) [Entitic mass] 31.6 pg Normal 27.0-32.0 [facility] Comment on above: Performed By: #### Kimber DUMONT, L100.0100 #### [facility] [address] [place], [address] MCHC (RBC) [Mass/Vol] 34.4 g/dL Normal 32-36 [facility] Comment on above: Performed By: #### Kimber DUMONT, L100.0100 #### [facility] [address] [place], [address] Platelet mean volume (Bld) [Entitic vol] 11.5 fL Normal 6.2-12.0 [facility] Comment on above: Performed By: #### Kimber DUMONT, L100.0100 #### [facility] [address] [place], [address] Platelets (Bld) [#/Vol] 175 10*3/uL Normal 150-450 [facility] Comment on above: Performed By: #### Kimber DUMONT, L100.0100 #### [facility] [address] [place], [address] Determination of erythrocyte mean corpuscular volume (MCV)Ordered By: Ruma Tuttle on 01-22-2024 MCV (RBC) [Entitic vol] 91.9 fL Normal 81-99 [facility] Comment on above: Performed By: #### Kimber DUMONT, L100.0100 #### [facility] [address] [place], [address] Erythrocyte distribution wid th ratioOrdered By: Ruma Tuttle on 01-22-2024 Erythrocyte distribution width (RBC) [Ratio] 13.5 % Normal 11.6-14.6 [facility] Comment on above: Performed By: #### Kimber DUMONT, L100.0100 #### [facility] [address] [place], [address] Erythrocyte distribution wid th standard deviationOrdered By: Ruma Tuttle on 01-22-2024 Erythrocyte distribution width (RBC) [Entitic vol] 45.3 fL 35.1-43.9 [facility] H AND P Exam - OB/GYNon 01-05 H&P Exam - CARPENTER SUPERVISOR [facility] Medical Records Department [address] [place] [address] H P Exam - CARPENTER SUPERVISOR 01/22/24 1933 MR#: [id number] Acct: [id number] Name: PELON DRISCOLL Rep #: [id number] : 1990 33 From: Ruma Tuttle MD PCP: Dr. Chano Shaw MD Status:ADM IN Location: [id number] HPI - General General Date of Admission: 01/22/24 Date of Service: 01/22/24 Chief Complaint: IOL for gestational diabetes HPI Narrative PELON DRISCOLL, is a 33 F who presents for induction of labor with diet controlled diabetes Maternal Data Information Final WEI: 01/29/24 Gestational age: 38 PFSH PFSH Medical History Gestational diabetes Medical History no medical history Home Medications naproxen 500 mg tablet 500 mg PO BID PRN #20 tabs 05/19/21 [Rx Last Taken Unknown] Allergy/AdvReac Type Severity Reaction Status Date / Time bee venom protein (honey bee) Allergy Swelling Verified 05/19/21 11:56 Social History Smoking Status: Never smoker History 2 Elective abortions Hx Para 1 Spontaneous abortions Hx # Term Pregnancies Ectopic pregnancies Hx # Pregnancies Multiple births # of living children NST FHR Rate Baby A Baseline: 140 Variability:: Moderate Accelerations:: 15 x 15 Decelerations:: None NST Reactive:: Yes FHR Category:: Category I Uterine Activity:: few on admission ROS Constitutional Constitutional: Denies fatigue, fever(s) or malaise Eyes Eyes: Denies change in vision ENT HEENT: Denies dizziness or headache(s) Cardiovascular Cardiovascular: Denies chest pain, dyspnea or lightheadedness Respiratory/Chest Respiratory/Chest: Denies cough or dyspnea Gastrointestinal Gastrointestinal: Denies change in bowel habits Genitourinary Genitourinary: Denies burning urination or genital lesions Integumentary Integumentary: Denies rash Neurologic Neurologic: Denies confusion, dizziness, headache(s), numbness or weakness Vital Signs Vital Signs Vital Signs: 01/22/24 07:20 01/22/24 07:20 01/22/24 07:19 Temperature Temperature Source Temporal Pulse Rate 93 Respiratory Rate Blood Pressure 121/60 H BP Systolic 121 BP Diastolic 60 Pulse Ox 01/22/24 07:19 01/22/24 07:19 01/22/24 08:32 Temperature 97.7 F L Temperature Source Pulse Rate Respiratory Rate 16 Blood Pressure 114/60 BP Systolic 114 BP Diastolic 60 Pulse Ox 01/22/24 08:32 01/22/24 09:02 01/22/24 09:02 Temperature Temperature Source Pulse Rate 80 81 Respiratory Rate Blood Pressure 105/58 L BP Systolic 105 BP Diastolic 58 Pulse Ox 01/22/24 10:20 01/22/24 10:20 01/22/24 10:29 Temperature Temperature Source Pulse Rate 72 Respiratory Rate Blood Pressure 97/52 L 93/51 L BP Systolic 97 93 BP Diastolic 52 51 Pulse Ox 01/22/24 10:29 01/22/24 11:34 01/22/24 11:34 Temperature Temperature Source Pulse Rate 77 123 H Respiratory Rate Blood Pressure 107/64 BP Systolic 107 BP Diastolic 64 Pulse Ox 01/22/24 11:35 01/22/24 11:35 01/22/24 11:34 Temperature Temperature Source Temporal Pulse Rate 105 H Respiratory Rate Blood Pressure BP Systolic BP Diastolic Pulse Ox 98 01/22/24 11:34 01/22/24 11:34 01/22/24 12:07 Temperature 97.5 F L Temperature Source Pulse Rate Respiratory Rate 16 Blood Pressure 109/66 BP Systolic 109 BP Diastolic 66 Pulse Ox 01/22/24 12:07 01/22/24 12:20 01/22/24 12:20 Temperature Temperature Source Pulse Rate 73 65 Respiratory Rate Blood Pressure 117/70 BP Systolic 117 BP Diastolic 70 Pulse Ox 01/22/24 13:28 01/22/24 13:28 01/22/24 13:27 Temperature Temperature Source Temporal Pulse Rate 69 Respiratory Rate Blood Pressure 115/66 BP Systolic 115 BP Diastolic 66 Pulse Ox 01/22/24 13:27 01/22/24 13:27 01/22/24 13:27 Temperature 97.2 F L Temperature Source Pulse Rate Respiratory Rate 16 Blood Pressure BP Systolic BP Diastolic Pulse Ox 100 01/22/24 15:50 01/22/24 15:50 01/22/24 15:50 Temperature Temperature Source Pulse Rate 80 Respiratory Rate Blood Pressure 133/66 H BP Systolic 133 BP Diastolic 66 Pulse Ox 100 01/22/24 17:34 01/22/24 17:34 01/22/24 18:10 Temperature Temperature Source Temporal Pulse Rate 75 Respiratory Rate Blood Pressure 126/63 H BP Systolic 126 BP Diastolic 63 Pulse Ox 01/22/24 18:10 01/22/24 18:10 01/22/24 (more content not included)... Normal [facility] Immature granulocytes/100 WB C Auto (Bld)Ordered By: Ruma Tuttle on 01-22-2024 Immature granulocytes/100 WBC (Bld) 0.300 % 0.0-0.9 [facility] Comment on above: IG% - Immature Granu locytes (promyelocytes, myelocytes and metamyelocytes) > 1% indicates that a LEFT SHIFT is Present. L509.8000on 01-22-2024 Syphilis Abs Non-Reactive Normal [facility] Comment on above: Performed By: #### L 509.8000 #### [facility] [address] [place], [place], [address] Laboratory - Hematology and Cell countsOrdered By: Ruma Tuttle on 01-22-2024 Nucleated RBC/100 WBC (Bld) [Ratio] 0 % 0-5 [facility] Serum Treponema species anti body detectionOrdered By: Ruma Tuttle on 01-22-2024 Treponema sp Ab Ql (S) Non-Reactive [facility] Type AND Screenon 01-22-2024 ABO and Rh group Nom (Bld) Blood group O Rh(D) positive Normal [facility] Comment on above: Order Comment: Labor Performed By: #### B TS, L100.0100 #### [facility] [address] [place], [place], [address] Maddi 01-21-2024 [facility] Telephone (OBGYWM) PELON DRISCOLL ([id number]) 1990 F Date Time Provider Department 01/21/24 RUMA TUTTLE OBGYWM During your visit today, we recorded the following information about you: Ruma Estevez RN 01/21/2024 3:04 PM Signed [id number] Patient is scheduled for induction on 01/21 and needs her [facility] paperwork updated. Received fax. In nurse phone room. Where it says that she is starting leave on 01/28, needs changed to 01/21. Patient will send a [employer] message tomorrow confirming that her induction is taking place and not being postponed. AKILAH Luis Jennifer, RN 01/22/2024 10:30 AM Signed DARINEL updated and faxed. Will send copy to be scanned. Ruma Estevez RN Allergies As of Date: 01/21/2024 Noted Allergy Reaction BEE STING 07/03/2006 9 - Itching POISON LOIDA 07/03/2006 Date Reviewed: 01/17/2024 Reviewed by: Arnold Gilmore MD - Fully Assessed Reason for Visit: Forms/letter [8940] Cmt: [facility] - updated Prescriptions as of 01/22/2024 - glyBURIDE 5 mg tablet Take 1 tablet by mouth daily with breakfast. - ferrous sulfate (IRON ORAL) Take by mouth. - blood sugar diagnostic test strip Use as directed to check glucose levels up to seven times daily. - Lancets lancets Use as directed to check glucose levels up to seven times daily. - alcohol swabs (ALCOHOL PREP PADS) Use as directed to check glucose levels up to seven times daily. - PNV no.95/ferrous fum/folic ac ( ORAL) Take by mouth. - fluticasone (FLONASE) 50 mcg/actuation nasal spray Use 2 Sprays in each nostril once daily. Rinse mouth after use. Problem List As Of Date 01/21/2024 Noted Resolved Limited care in second trimester [O09.*08/14/2023 Obesity complicating , second trimeste*08/14/2023 Anemia complicating , second trimester*08/14/2023 Elevated glucose [R73.09] 10/31/2023 Gestational diabetes mellitus, class A1 [O24.41*11/06/2023 Encounter Status:Closed by RUMA ESTEVEZ on 01/22/24 Normal [facility] Examination level ultrasound on 01-17-2024 [facility] URINE OB DIP B/Oon 4 Glucose Ql (U) Negative Neg mg/dL [facility] Protein.monoclonal (U) [Mass/Vol] Negative Neg mg/dL [facility] URINE OB DIP B/Oon 4 Glucose Ql (U) 100 mg/dL Neg mg/dL [facility] Protein.monoclonal (U) [Mass/Vol] Negative Neg mg/dL [facility] ROUTINE, GROUP B ST REP PCRon 12-27-2023 ROUTINE, GROUP B STREP PCR GROUP B STREP PCR: Negative for Group B Streptococcus by PCR. Normal [facility] Comment on above: Performed By: #### G BPCR ####[facility] LABCLIA [id number] [place] [address] [place] [facility] URINE OB DIP B/Oon 4 Glucose Ql (U) Negative Neg mg/dL [facility] Protein.monoclonal (U) [Mass/Vol] Negative Neg mg/dL [facility] Examination level ultrasound on 12-20-2023 [facility] CNPNon 12-10-2023 [facility]NP[facility] Telephone (OBGYWM) PELON DRISCOLL ([id number]) 1990 F Date Time Provider Department 12/10/23 TAMELA HUERTA During your visit today, we recorded the following information about you: Maris Wyatt LPN 12/10/2023 3:13 PM Signed FMLA completed and placed on providers desk for signature.BRO Middleton Kimberly, LPN 12/12/2023 9:06 AM Signed FMLA paperwork completed, faxed to employer, scanned into EMR and filed in nurses station. Maris Wyatt LPN Allergies As of Date: 12/10/2023 Noted Allergy Reaction BEE STING 07/03/2006 9 - Itching POISON LOIDA 07/03/2006 Date Reviewed: 12/06/2023 Reviewed by: Tamela Huerta APRN.DIGITAL MEDIA MANAGER - Fully Assessed Reason for Visit: FMLA Paperwork [4185] Prescriptions as of 12/12/2023 - blood sugar diagnostic test strip Use as directed to check glucose levels up to seven times daily. - Lancets lancets Use as directed to check glucose levels up to seven times daily. - alcohol swabs (ALCOHOL PREP PADS) Use as directed to check glucose levels up to seven times daily. - PNV no.95/ferrous fum/folic ac ( ORAL) Take by mouth. - fluticasone (FLONASE) 50 mcg/actuation nasal spray Use 2 Sprays in each nostril once daily. Rinse mouth after use. Problem List As Of Date 12/10/2023 Noted Resolved Limited care in second trimester [O09.*08/14/2023 Obesity complicating , second trimeste*08/14/2023 Anemia complicating , second trimester*08/14/2023 Elevated glucose [R73.09] 10/31/2023 Gestational diabetes mellitus, class A1 [O24.41*11/06/2023 Encounter Status:Closed by MARIS WYATT on 12/12/23 Normal [facility] CBC panel Auto (Bld)on 12-05 Erythrocyte distribution width (RBC) [Ratio] 15.0 % 11.5 - 15.0 % [facility] Hematocrit (Bld) [Volume fraction] 35.0 % Low 36.0 - 46.0 % [facility] Hemoglobin (Bld) [Mass/Vol] 12.2 g/dL 11.5 - 15.5 g/dL [facility] MCH (RBC) [Entitic mass] 30.7 pg 26.0 - 34.0 pg [facility] MCHC (RBC) [Mass/Vol] 34.9 g/dL 30.5 - 36.0 g/dL [facility] MCV (RBC) [Entitic vol] 88.2 fL 80.0 - 100.0 fL [facility] Nucleated RBC (Bld) [#/Vol] <0.01 k/uL [facility] Platelet mean volume (Bld) [Entitic vol] 10.7 fL 9.0 - 12.7 fL [facility] Platelets (Bld) [#/Vol] 182 10*3/uL 150 - 400 k/uL [facility] RBC (Bld) [#/Vol] 3.97 10*6/uL 3.90 - 5.2 0 m/uL [facility] WBC (Bld) [#/Vol] 7.91 10*3/uL 3.70 - 11. 00 k/uL [facility] Erythrocyte distribution width (RBC) [Ratio] 15.0 % Normal 11.5-15.0 [facility] Comment on above: Order Comment: Speci men Type: BLOOD SPECIMENOrdering Facility: [facility] Address: [address] [place] [address] Performed By: #### 5 8410-2 ####[facility] [id number] [place] [address] [place] Hematocrit (Bld) [Volume fraction] 35.0 % Low 36.0-46.0 [facility] Comment on above: Order Comment: Speci men Type: BLOOD SPECIMENOrdering Facility: [facility] Address: [address] [place] [address] Performed By: #### 5 8410-2 ####[facility] [id number] [place] [address] [place] Hemoglobin (Bld) [Mass/Vol] 12.2 g/dL Normal 11.5-15.5 [facility] Comment on above: Order Comment: Speci men Type: BLOOD SPECIMENOrdering Facility: [facility] Address: [address] [place] [address] Performed By: #### 5 8410-2 ####[facility] JOSE CARLOSKieranNCPRAMOD [id number] [address] STATES [facility] MCH (RBC) [Entitic mass] 30.7 pg Normal 26.0-34.0 [facility] Comment on above: Order Comment: Speci men Type: BLOOD SPECIMENOrdering Facility: [facility] Address: [address] [place] [address] Performed By: #### 5 8410-2 ####[facility] [id number] [address] [place] MCHC (RBC) [Mass/Vol] 34.9 g/dL Normal 30.5-36.0 [facility] Comment on above: Order Comment: Speci men Type: BLOOD SPECIMENOrdering Facility: [facility] Address: [address] [place] [address] Performed By: #### 5 8410-2 ####[facility] [id number] [address] [place] MCV (RBC) [Entitic vol] 88.2 fL Normal 80.0-100.0 [facility] Comment on above: Order Comment: Speci men Type: BLOOD SPECIMENOrdering Facility: [facility] Address: [address] [place] [address] Performed By: #### 5 8410-2 ####[facility] [id number] [address] [place] Nucleated RBC (Bld) [#/Vol] 10*3/uL Normal <0.01 [facility] Comment on above: Order Comment: Speci men Type: BLOOD SPECIMENOrdering Facility: [facility] Address: [address] [place] [address] Performed By: #### 5 8410-2 ####[facility] RADHANCJOHNSONA [id number] [place] [address] [place] Platelet mean volume (Bld) [Entitic vol] 10.7 fL Normal 9.0-12.7 [facility] Comment on above: Order Comment: Speci men Type: BLOOD SPECIMENOrdering Facility: [facility] Address: [address] [place] [address] Performed By: #### 5 8410-2 ####[facility] HOS[facility]ITALTAYLOR [id number] [place] [address] [place] Platelets (Bld) [#/Vol] 182 10*3/uL Normal 150-400 [facility] Comment on above: Order Comment: Speci men Type: BLOOD SPECIMENOrdering Facility: [facility] Address: [address] [place] [address] Performed By: #### 5 8410-2 ####[facility]ITAL[facility]CLIA [id number] [place] [address] [place] RBC (Bld) [#/Vol] 3.97 10*6/uL Normal 3.90-5.20 [facility] Comment on above: Order Comment: Speci men Type: BLOOD SPECIMENOrdering Facility: [facility] Address: [address] [place] [address] Performed By: #### 5 8410-2 ####[facility]ITAL[facility]CL[facility] [id number] [place] [address] [place] WBC (Bld) [#/Vol] 7.91 10*3/uL Normal 3.70-11.00 [facility] Comment on above: Order Comment: Speci men Type: BLOOD SPECIMENOrdering Facility: [facility] Address: [address] [place] [address] Performed By: #### 5 8410-2 ####[facility] BRANDON MENDEZ [id number] [address] [facility] Maddi 12-06-2023 [facility] Telephone (OBGYWM) PELON DRISCOLL ([id number]) 1990 F Date Time Provider Department 12/06/23 TAMELA HUERTA During your visit today, we recorded the following information about you: Tamela Huerta APRN.HITESH 12/06/2023 4:44 PM Signed Please reschedule next appt with physician. Patient high risk with GDM and has not seen physician yet. Tamela Huerta APRN.CNP Allergies As of Date: 12/06/2023 Noted Allergy Reaction BEE STING 07/03/2006 9 - Itching POISON LOIDA 07/03/2006 Date Reviewed: 12/06/2023 Reviewed by: Tamela Huerta APRN.CNP - Fully Assessed Reason for Visit: Appointment [186] Prescriptions as of 12/06/2023 - blood sugar diagnostic test strip Use as directed to check glucose levels up to seven times daily. - Lancets lancets Use as directed to check glucose levels up to seven times daily. - alcohol swabs (ALCOHOL PREP PADS) Use as directed to check glucose levels up to seven times daily. - PNV no.95/ferrous fum/folic ac ( ORAL) Take by mouth. - fluticasone (FLONASE) 50 mcg/actuation nasal spray Use 2 Sprays in each nostril once daily. Rinse mouth after use. Problem List As Of Date 12/06/2023 Noted Resolved Limited care in second trimester [O09.*08/14/2023 Obesity complicating , second trimeste*08/14/2023 Anemia complicating , second trimester*08/14/2023 Elevated glucose [R73.09] 10/31/2023 Gestational diabetes mellitus, class A1 [O24.41*11/06/2023 Encounter Status:Closed by TIMO BEARD on 12/06/23 Normal [facility] URINE OB DIP B/Oon 4 Glucose Ql (U) 100 mg/dL Neg mg/dL [facility] Protein.monoclonal (U) [Mass/Vol] Negative Neg mg/dL [facility] Examination level ultrasound on 11-22-2023 [facility] URINE OB DIP B/Oon 4 Glucose Ql (U) Negative Neg mg/dL [facility] Protein.monoclonal (U) [Mass/Vol] Negative Neg mg/dL [facility] INFLUENZA A&B MOLECULAR (POC )on 09-21-2023 Flu A (POCT) Negative Negative [facility] Flu B (POCT) Negative Negative [facility] Procedural Control Valid [facility] OBSTETRIC ULTRASOUND WHIon 1 11-04-2022 [facility] URINE OB DIP B/Oon 3 Glucose Ql (U) Negative Neg mg/dL [facility] Protein.monoclonal (U) [Mass/Vol] Negative Neg mg/dL [facility] HCG QUAL UR B/Oon 04-22-2023 status Negative neg - pos [facility] Quality Check Yes [facility] UA DIP, URINE (POC)on 2022 BILIRUBIN UA (POCT) Negative Negative [facility] CLARITY UA (POCT) Cloudy [facility] COLOR UA (POCT) Yellow [facility] GLUCOSE UA (POCT) Negative Negative mg/dL [facility] HEMOGLOBIN/BLOOD UA (POCT) Trace-intact Abnormal Negative [facility] KETONE UA (POCT) Negative Negative mg/dL [facility] LEUKOCYTES UA (POCT) Small Abnormal Negative [facility] NITRITE UA (POCT) Negative Negative [facility] PH UA (POCT) 7.0 4.5 - 8.0 [facility] Protein Ql (U) 30 mg/dL Abnormal Negative mg/dL [facility] SPECIFIC GRAVITY UA (POCT) 1.025 1.005 - 1.030 [facility] UROBILINOGEN UA (POCT) 0.2 E.U./dL Tisha l E.U./dL [facility] XR Chest PA and Lateralon IMPRESSION: No acute radiographic abnormality. Pipe And Test Supervisor: ADI Transcribe Date/Time: Nov 16 2022 10:21A Dictated by : OSWALD KHAN MD This examination was interpreted and the report reviewed and electronically signed by: OSWALD KHAN MD on Nov 16 2022 10:22AM [facility] DIVISION OF RADIOLOGY * * *Final Report* * * DATE OF EXAM: Nov 16 2022 10:15AM WOX [id number] - XR CHEST 2V FRONTAL/LAT / PROCEDURE REASON: Acute cough * * * * Physician Interpretation * * * * EXAMINATION: CHEST RADIOGRAPH (2 VIEW FRONTAL & LATERAL) CLINICAL HISTORY: Acute cough MQ: XC2_6 EXAM DATE/TIME: 11/16/2022 10:15 AM COMPARISON: No relevant prior studies available. RESULT: Lines, tubes, and devices: None. Lungs and pleura: No consolidation. No lung mass. No pleural effusion. No pneumothorax. Cardiomediastinal silhouette: Normal cardiomediastinal silhouette. Bones and soft tissues: Unremarkable. DIVISION OF RADIOLOGY Provider, [facility] - 11/16/2022 * * *Final Report* * * DATE OF EXAM: Nov 16 2022 10:15AM WOX [id number] - XR CHEST 2V FRONTAL/LAT / PROCEDURE REASON: Acute cough * * * * Physician Interpretation * * * * EXAMINATION: CHEST RADIOGRAPH (2 VIEW FRONTAL & LATERAL) CLINICAL HISTORY: Acute cough MQ: XC2_6 EXAM DATE/TIME: 11/16/2022 10:15 AM COMPARISON: No relevant prior studies available. RESULT: Lines, tubes, and devices: None. Lungs and pleura: No consolidation. No lung mass. No pleural effusion. No pneumothorax. Cardiomediastinal silhouette: Normal cardiomediastinal silhouette. Bones and soft tissues: Unremarkable. IMPRESSION IMPRESSION: No acute radiographic abnormality. Pipe And Test Supervisor: ADI Transcribe Date/Time: Nov 16 2022 10:21A Dictated by : OSWALD KHAN MD This examination was interpreted and the report reviewed and electronically signed by: OSWALD KHAN MD on Nov 16 2022 10:22AM [facility] Radiology Study observation (narrative) [facility] XR Chest PA and LateralOrder ed By: Cc Provider on 11-16-2022 [facility] XR Shoulder - left 3 Viewson 10-22-2022 IMPRESSION: No radiographic evidence of acute osseous abnormality. Pipe And Test Supervisor: [facility] Transcribe Date/Time: Oct 22 2022 2:11P Dictated by : ADELA FLORES MD This examination was interpreted and the report reviewed and electronically signed by: ADELA FLORES MD on Oct 22 2022 2:12PM EST DIVISION OF RADIOLOGY * * *Final Report* * * DATE OF EXAM: Oct 22 2022 2:03PM WOX [id number] - XR SHLDR >/=3V AP/SABA AP/OTHR LT / PROCEDURE REASON: Acute pain of left shoulder * * * * Physician Interpretation * * * * TITLE: XR SHLDR >/=3V AP/SABA AP/OTHR LT CLINICAL INDICATION: Pain TECHNIQUE: 3 view radiographic study of the left shoulder COMPARISON: None FINDINGS: No acute fracture or dislocation identified. Acromioclavicular joint intact. DIVISION OF RADIOLOGY Provider, [facility] - 10/22/2022 * * *Final Report* * * DATE OF EXAM: Oct 22 2022 2:03PM WOX 5252 - XR SHLDR >/=3V AP/SABA AP/OTHR LT / PROCEDURE REASON: Acute pain of left shoulder * * * * Physician Interpretation * * * * TITLE: XR SHLDR >/=3V AP/SABA AP/OTHR LT CLINICAL INDICATION: Pain TECHNIQUE: 3 view radiographic study of the left shoulder COMPARISON: None FINDINGS: No acute fracture or dislocation identified. Acromioclavicular joint intact. IMPRESSION IMPRESSION: No radiographic evidence of acute osseous abnormality. Pipe And Test Supervisor: [facility] Transcribe Date/Time: Oct 22 2022 2:11P Dictated by : ADELA FLORES MD This examination was interpreted and the report reviewed and electronically signed by: ADELA FLORES MD on Oct 22 2022 2:12PM EST [facility] Radiology Study [facility] (narrative) [facility] - left 3 ViewsOr dered By: Cc Provider on 10-22-2022 [facility] Vital Signs Date Time Vital Sign Value Performing Clinician Facility 12-08-2024 06:57-0500 Body height 165.1 cm Chano Shaw MD Work Phone: [facility] 12-08-2024 06:57-0500 Body mass index (BMI) [Ratio] 37.44 kg/m2 Chano Shaw MD Work Phone: [facility] 12-08-2024 06:57-0500 Body weight 102.06 kg Chano Shaw MD Work Phone: [facility] 12-08-2024 06:57-0500 Diastolic blood pressure 69 mm[Hg] Chano Shaw MD Work Phone: [facility] 12-08-2024 06:57-0500 Heart rate 75 /min Chano Shaw MD Work Phone: [facility] 12-08-2024 06:57-0500 SaO2% (BldA) [Mass fraction] 96 % Chano Shaw MD Work Phone: [facility] 12-08-2024 06:57-0500 Systolic blood pressure 106 mm[Hg] Chano Shaw MD Work Phone: [facility] 11-18-2024 17:05-0500 Body mass index (BMI) [Ratio] 37.97 kg/m2 Aryan Aleman MD Work Phone: [facility] 11-18-2024 17:05-0500 Body temperature 97.39 [degF] Aryan Aleman MD Work Phone: [facility] 11-18-2024 17:05-0500 Body weight 103.5 kg Aryan Aleman MD Work Phone: [facility] 11-18-2024 17:05-0500 Diastolic blood pressure 68 mm[Hg] Aryan Aleman MD Work Phone: [facility] 11-18-2024 17:05-0500 Heart rate 68 /min Aryan Aleman MD Work Phone: [facility] 11-18-2024 17:05-0500 Respiratory rate 20 /min Aryan Aleman MD Work Phone: [facility] 11-18-2024 17:05-0500 SaO2% (BldA) [Mass fraction] 98 % Aryan Aleman MD Work Phone: [facility] 11-18-2024 17:05-0500 Systolic blood pressure 100 mm[Hg] Aryan Aleman MD Work Phone: [facility] 08-28-2024 10:37-0500 Body mass index (BMI) [Ratio] 36.76 kg/m2 Krislyn Aberegg PA Work Phone: [facility] 08-28-2024 10:37-0500 Body temperature 96.91 [degF] Krislyn Aberegg PA Work Phone: [facility] 08-28-2024 10:37-0500 Body weight 100.2 kg Krislyn Aberegg PA Work Phone: [facility] 08-28-2024 10:37-0500 Diastolic blood pressure 79 mm[Hg] Krislyn Aberegg PA Work Phone: [facility] 08-28-2024 10:37-0500 Heart rate 75 /min Krislyn Aberegg PA Work Phone: [facility] 08-28-2024 10:37-0500 Respiratory rate 18 /min Krislyn Aberegg PA Work Phone: [facility] 08-28-2024 10:37-0500 SaO2% (BldA) [Mass fraction] 97 % Krislyn Aberegg PA Work Phone: [facility] 08-28-2024 10:37-0500 Systolic blood pressure 115 mm[Hg] Krislyn Aberegg PA Work Phone: [facility] 03-06-2024 13:36-0400 Body mass index (BMI) [Ratio] 33.45 kg/m2 Ruma Tuttle MD Work Phone: [facility] 03-06-2024 13:36-0400 Body weight 91.17 kg Ruma Tuttle MD Work Phone: [facility] 03-06-2024 13:36-0400 Diastolic blood pressure 64 mm[Hg] Ruma Tuttle MD Work Phone: [facility] 03-06-2024 13:36-0400 Systolic blood pressure 108 mm[Hg] Ruma Tuttle MD Work Phone: [facility] 01-31-2024 10:34-0400 Body mass index (BMI) [Ratio] 32.68 kg/m2 Ellie Maidatoni SLIP SHEETER.CNM Work Phone: [facility] 01-31-2024 10:34-0400 Body weight 89.09 kg Ellie Maidatoni SLIP SHEETER.CNM Work Phone: [facility] 01-31-2024 10:34-0400 Diastolic blood pressure 64 mm[Hg] Ellie Olivo SLIP SHEETER.CNM Work Phone: [facility] 01-31-2024 10:34-0400 Systolic blood pressure 118 mm[Hg] Ellie Beyts SLIP SHEETER.CNM Work Phone: [facility] 01-24-2024 07:22-0400 Body temperature 97.9 [degF] [facility] 01-24-2024 07:22-0400 Diastolic blood pressure 55 mm[Hg] [facility] 01-24-2024 07:22-0400 Heart rate 90 /min [facility] 01-24-2024 07:22-0400 Respiratory rate 16 /min [facility] 01-24-2024 07:22-0400 SaO2% (BldA) [Mass fraction] 98 % [facility] 01-24-2024 07:22-0400 Systolic blood pressure 98 mm[Hg] [facility] 01-22-2024 07:38-0400 Body height 165.1 cm [facility] 01-22-2024 07:38-0400 Body mass index (BMI) [Ratio] 35.4 kg/m2 [facility] 01-22-2024 07:38-0400 Body weight 96.72 kg [facility] 01-17-2024 08:36-0400 Body weight 97.07 kg Arnold Gilmore MD Work Phone: [facility] 01-17-2024 08:36-0400 Diastolic blood pressure 78 mm[Hg] Arnold Gilmore MD Work Phone: [facility] 01-17-2024 08:36-0400 Systolic blood pressure 126 mm[Hg] Arnold Gilmore MD Work Phone: [facility] 01-10-2024 15:01-0400 Body weight 96.16 kg Ruma Tuttle MD Work Phone: [facility] 01-10-2024 15:01-0400 Diastolic blood pressure 77 mm[Hg] Ruma Tuttle MD Work Phone: [facility] 01-10-2024 15:01-0400 Systolic blood pressure 121 mm[Hg] Ruma Tuttle MD Work Phone: [facility] 12-27-2023 15:32-0400 Body weight 94.8 kg Ruma Tuttle MD Work Phone: [facility] 12-27-2023 15:32-0400 Diastolic blood pressure 62 mm[Hg] Ruma Tuttle MD Work Phone: [facility] 12-27-2023 15:32-0400 Systolic blood pressure 104 mm[Hg] Ruma Tuttle MD Work Phone: [facility] 12-20-2023 16:03-0400 Body weight 95.71 kg Arnold Gilmore MD Work Phone: [facility] 12-20-2023 16:03-0400 Diastolic blood pressure 64 mm[Hg] Arnold Gilmore MD Work Phone: [facility] 12-20-2023 16:03-0400 Systolic blood pressure 116 mm[Hg] Arnold Gilmore MD Work Phone: [facility] 12-06-2023 15:25-0500 Body weight 96.25 kg Tamela Lucaslemuel SLIP SHEETER.DIGITAL MEDIA MANAGER Work Phone: [facility] 12-06-2023 15:25-0500 Diastolic blood pressure 62 mm[Hg] Tamela Lucasury SLIP SHEETER.DIGITAL MEDIA MANAGER Work Phone: [facility] 12-06-2023 15:25-0500 Systolic blood pressure 106 mm[Hg] Tamela Lucasury SLIP SHEETER.DIGITAL MEDIA MANAGER Work Phone: [facility] 11-22-2023 09:43-0500 Diastolic blood pressure 62 mm[Hg] Ob Ultrasound Work Phone: [facility] 11-22-2023 09:43-0500 Systolic blood pressure 122 mm[Hg] Ob Ultrasound Work Phone: [facility] 11-19-2023 15:32-0500 Body weight 96.16 kg Juliana Pritchadr SLIP SHEETER.CNM Work Phone: [facility] 11-19-2023 15:32-0500 Diastolic blood pressure 68 mm[Hg] Juliana Pritchard SLIP SHEETER.CNM Work Phone: [facility] 11-19-2023 15:32-0500 Systolic blood pressure 106 mm[Hg] Juliana Pritchard SLIP SHEETER.CNM Work Phone: [facility] 11-11-2023 13:48-0500 Body height 165.[address] [facility] 11-11-2023 13:48-0500 Body weight 94.[address] [facility] 09-21-2023 10:54-0500 Body temperature 98.29 [degF] Mercedez Athy PA-C Work Phone: [facility] 09-21-2023 10:54-0500 Body weight 98.43 kg Mercedez Athy PA-C Work Phone: [facility] 09-21-2023 10:54-0500 Diastolic blood pressure 77 mm[Hg] Mercedez Athy PA-C Work Phone: [facility] 09-21-2023 10:54-0500 Heart rate 97 /min Mercedez Athy PA-C Work Phone: [facility] 09-21-2023 10:54-0500 Respiratory rate 18 /min Mercedez Athy PA-C Work Phone: [facility] 09-21-2023 10:54-0500 SaO2% (BldA) [Mass fraction] 100 % Mercedez Athy PA-C Work Phone: [facility] 09-21-2023 10:54-0500 Systolic blood pressure 119 mm[Hg] Mercedez Athy PA-C Work Phone: [facility] 09-04-2023 13:53-0500 Body weight 96.89 kg Juliana Pritchard SLIP SHEETER.CNM Work Phone: [facility] 09-04-2023 13:53-0500 Diastolic blood pressure 64 mm[Hg] Juliana Pritchard SLIP SHEETER.CNM Work Phone: [facility] 09-04-2023 13:53-0500 Systolic blood pressure 100 mm[Hg] Juliana Pritchard SLIP SHEETER.CNM Work Phone: [facility] 04-22-2023 10:45-0400 Body temperature 98.6 [degF] Mercedez Athy PA-C Work Phone: [facility] 04-22-2023 10:45-0400 Body weight 99.34 kg Mercedez Athy PA-C Work Phone: [facility] 04-22-2023 10:45-0400 Diastolic blood pressure 84 mm[Hg] Mercedez Athy PA-C Work Phone: [facility] 04-22-2023 10:45-0400 Heart rate 84 /min Mercedez Athy PA-C Work Phone: [facility] 04-22-2023 10:45-0400 Respiratory rate 18 /min Mercedez Athy PA-C Work Phone: [facility] 04-22-2023 10:45-0400 SaO2% (BldA) [Mass fraction] 98 % Mercedez Bernal PA-C Work Phone: [facility] 04-22-2023 10:45-0400 Systolic blood pressure 128 mm[Hg] Mercedez Bernal PA-C Work Phone: [facility] 10-08-2022 12:31-0500 Body temperature 98.1 [degF] Aryan Aleman MD Work Phone: [facility] 10-08-2022 12:31-0500 Body weight 92.99 kg Aryan Aleman MD Work Phone: [facility] 10-08-2022 12:31-0500 Diastolic blood pressure 70 mm[Hg] Aryan Aleman MD Work Phone: [facility] 10-08-2022 12:31-0500 Heart rate 100 /min Aryan Aleman MD Work Phone: [facility] 10-08-2022 12:31-0500 Respiratory rate 16 /min Aryan Aleman MD Work Phone: [facility] 10-08-2022 12:31-0500 SaO2% (BldA) [Mass fraction] 97 % Aryan Aleman MD Work Phone: [facility] 10-08-2022 12:31-0500 Systolic blood pressure 122 mm[Hg] Aryan Aleman MD Work Phone: [facility] Encounters Encounter Date Encounter Type Care Provider Facility Start: 12-09-2024 End: 12-09-2024 Telephone encounter Chano Shaw MD Work Phone: [facility] Comment on above: Results Start: 12-08-2024 End: 12-08-2024 Initial preventive medicine new pt age 18-39yrs Chano Shaw MD Work Phone: [facility] Comment on above: Annual physical exam (Primary Dx); Screening for diabetes mellitus; Screening for lipid disorders; Immunization due; Influenza vaccine refused Start: 12-08-2024 End: 12-08-2024 Patient encounter procedure Chano Shaw MD Work Phone: [facility] Work Phone: Start: 12-08-2024 End: 12-08-2024 ambulatory CHANO [facility] Start: 12-08-2024 End: 12-08-2024 Encounter for general adult medical examination without abnormal findings [facility] Start: 11-18-2024 End: 11-18-2024 Office outpatient new 30 minutes Aryan Aleman MD Work Phone: [facility] Comment on above: Left upper quadrant pain (Primary Dx) Start: 11-18-2024 End: 02-23-2025 ambulatory CHANO SHAW Facility:[facility] Start: 11-18-2024 End: 02-23-2025 Patient encounter procedure Thais Bates RN [facility] Clinical Communication Start: 10-20-2024 End: 10-20-2024 Emergency department patient visit Andrew Celis Facility:[facility] Start: 08-28-2024 End: 08-28-2024 ambulatory CHANO CAROLINA VALERIA Facility:[facility] Start: 08-28-2024 End: 08-28-2024 Patient encounter procedure Negro WAYNE Work Phone: [facility] Comment on above: Sinobronchitis (Prim starr Dx) Start: 08-04-2024 ambulatory CHANO SHAW Fa cility:[facility] Start: 06-30-2024 End: 06-30-2024 Emergency department patient visit Chano Shaw Facility:[facility] Start: 03-06-2024 End: 03-06-2024 ambulatory RUMA TUTTLE Facility:[facility] Start: 03-06-2024 End: 03-06-2024 Patient encounter procedure Ruma Tuttle MD Work Phone: OB/Gynecology Comment on above: care and examination (Primary Dx) Start: 01-31-2024 End: 01-31-2024 ambulatory ELLIE OLIVO Facility:[facility] Start: 01-31-2024 End: 01-31-2024 Patient encounter procedure Ellie Olivo SLIP SHEETER.CNM Work Phone: OB/Gynecology Comment on above: 2 weeks f ollow-up (Primary Dx) Start: 01-23-2024 ambulatory Ruma quintanilla MD Work Phone: OB/Gynecology Comment on above: Ob Delivery Note Start: 01-22-2024 End: 01-24-2024 Evaluation and management of inpatient [facility] Work Phone: Start: 01-21-2024 Telephone encounter Ruma guy MD Work Phone: OB/Gynecology Comment on above: Forms/letter (FMLA - updated) Start: 01-17-2024 End: 01-17-2024 ambulatory CHANO SHAW Facility:[facility] Start: 01-17-2024 End: 01-17-2024 Patient encounter procedure Arnold Gilmore MD Work Phone: OB/Gynecology Comment on above: Encounter for superv ision of high risk in third trimester, antepartum (Primary Dx); Anemia complicating , third trimester; 38 weeks gestation of ; Diet controlled gestational diabetes mellitus (GDM) in third trimester Obesity affecting pr egnancy in second trimester, unspecified obesity type (Primary Dx); 38 weeks gestation of Start: [facility] Population Health Na vigation Outreach (Ob/peds) Start: 01-10-2024 End: 01-10-2024 Patient encounter procedure Ruma Tuttle MD Work Phone: OB/Gynecology Comment on above: 37 weeks gestation o f (Primary Dx); Encounter for supervision of high risk in third trimester, antepartum; Gestational diabetes mellitus, class A1 Start: 01-10-2024 End: 01-10-2024 ambulatory RUMA TUTTLE Facility:[facility] Start: 01-01-2024 End: 01-01-2024 ambulatory CHANO SHAW Facility:[facility] Start: 12-27-2023 End: 12-27-2023 Patient encounter procedure Ruma Tuttle MD Work Phone: OB/Gynecology Comment on above: Encounter for superv ision of high risk in third trimester, antepartum (Primary Dx); 35 weeks gestation of ; Gestational diabetes mellitus, class A1; Anemia complicating , third trimester Start: 12-27-2023 End: 12-27-2023 ambulatory RUMA TUTTLE Facility:[facility] Start: 12-20-2023 End: 12-20-2023 Patient encounter procedure Arnold Gilmore MD Work Phone: OB/Gynecology Comment on above: Encounter for superv ision of high risk in third trimester, antepartum (Primary Dx); Gestational diabetes mellitus, class A1; Anemia complicating , third trimester; 34 weeks gestation of ; Maternal obesity syndrome in third trimester; BMI 35.0-35.9,adult Gestational diabetes mellitus (GDM) in third trimester, gestational diabetes method of control unspecified Start: 12-20-2023 End: 12-20-2023 ambulatory JULIANA PRITCHARD Facility:[facility] Start: 12-10-2023 Telephone encounter Tamela adhikari APRN.DIGITAL MEDIA MANAGER Work Phone: OB/Gynecology Comment on above: FMLA Paperwork Start: 12-06-2023 End: 12-06-2023 ambulatory CHANO SHAW Facility:[facility] Start: 12-06-2023 End: 12-06-2023 Patient encounter procedure Tamela Huerta APRN.CNP Work Phone: OB/Gynecology Comment on above: Encounter for superv ision of high risk in third trimester, antepartum (Primary Dx); 32 weeks gestation of ; Obesity affecting in second trimester, unspecified obesity type; Gestational diabetes mellitus, class A1; Anemia complicating , third trimester Start: 12-06-2023 Telephone encounter Tamela adhikari APRN.DIGITAL MEDIA MANAGER Work Phone: OB/Gynecology Comment on above: Appointment Start: 11-26-2023 ambulatory Juliana Pritchard APRN.CNM Work Phone: OB/Gynecology Comment on above: Blood Monitoring Start: 11-22-2023 End: 11-22-2023 ambulatory JULIANA PRITCHARD Facility:[facility] Start: 11-22-2023 End: 11-22-[address] [facility] Work Phone: OB/Gynecology Comment on above: Encounter for ultras ound to check growth (Primary Dx); 30 weeks gestation of ; Obesity affecting in second trimester, unspecified obesity type; Gestational diabetes mellitus, class A1 Start: 11-19-2023 End: 11-19-2023 Patient encounter procedure Juliana Pritchard APRN.CNM Work Phone: OB/Gynecology Comment on above: Encounter for superv ision of other normal in third trimester (Primary Dx); 29 weeks gestation of ; Need for vaccination Start: 11-11-2023 End: 11-11-2023 Nursing evaluation of patient and report Tommy Hoyt RN Work Phone: [facility] Comment on above: Gestational diabetes mellitus (GDM) in third trimester, gestational diabetes method of control unspecified Start: 11-11-2023 End: 11-11-[address] [facility] Comment on above: Assessment; Patient Education Start: 09-21-2023 End: 09-21-2023 Patient encounter procedure Mercedez Bernal PA-C Work Phone: [facility] Comment on above: Exposure to influenz a (Primary Dx) Start: 09-10-2023 Telephone encounter Juliana hernadez APRN.CNM Work Phone: [facility] [place] Comment on above: Patient Update Start: 09-04-2023 End: 09-04-[address] [facility] Work Phone: OB/Gynecology Comment on above: Encounter for anatomic survey (Primary Dx); Encounter for supervision of other normal in second trimester; 19 weeks gestation of ; Obesity affecting in second trimester, unspecified obesity type 19 weeks gestation o f (Primary Dx); Encounter for supervision of other normal in second trimester Start: 04-22-2023 End: 04-22-2023 Patient encounter procedure Mercedez Bernal PA-C Work Phone: [facility] Comment on above: Acute UTI (Primary D x) Start: 11-16-2022 End: 11-16-2022 Subsequent hospital visit by physician Xr [facility] [place] Work Phone: Radiology Comment on above: Acute cough [R05.1] Start: 11-01-2022 ambulatory Pcp (Historical) Appoin [facility] Start: 10-29-2022 ambulatory Pcp (Historical) Appoin [facility] Start: 10-22-2022 End: 10-22-2022 Subsequent hospital visit by physician Xr [facility] Work Phone: Radiology Comment on above: Acute pain of left s houlder [M25.512] Start: 10-08-2022 End: 10-08-2022 Patient encounter procedure Aryan Aleman MD Work Phone: [facility] Comment on above: Acute otitis media, right (Primary Dx) Procedures Date Procedure Procedure Detail Performing Clinician Start: 12-08-2024 Lipid 1996 panel - S prudence or Plasma Chano Shaw MD Work Phone: Start: 12-03-2024 Adult depression scr eening assessment Chano Shaw MD Work Phone: Start: 01-17-2024 URINE OB DIP B/O Yong Gilmore MD Work Phone: Start: 01-17-2024 Us preg uterus after 1st trimest 10/07 gestation Juliana Pritchard APRN.CNM Work Phone: Start: 01-10-2024 URINE OB DIP B/O Jimenez Tuttle MD Work Phone: Start: 12-27-2023 URINE OB DIP B/O Jimenez Tuttle MD Work Phone: Start: 12-20-2023 Us preg uterus after 1st trimest 10/07 gestation Juliana Pritchard APRN.CNM Work Phone: Start: 12-06-2023 URINE OB DIP B/O Tamela Huerta APRN.DIGITAL MEDIA MANAGER Work Phone: Start: 11-22-2023 Us preg uterus after 1st trimest 10/07 gestation Juliana Pritchard SLIP SHEETER.CNM Work Phone: Start: 11-19-2023 URINE OB DIP B/O Andi Pritchard SLIP SHEETER.CNM Work Phone: Start: 09-21-2023 INFLUENZA A&B MOLECU LAR (POC) Mercedez Bernal PA-C Work Phone: Start: 09-04-2023 URINE OB DIP B/O Andi Pritchard SLIP SHEETER.CNM Work Phone: Start: 09-04-2023 Us preg uterus after 1st trimest 10/07 gestation Ellie Olivo SLIP SHEETER.CNM Work Phone: Start: 08-14-2023 Microscopic observat ion [Identifier] in Cervix by Cyto stain Chano Shaw MD Work Phone: Start: 04-22-2023 End: 04-22-2023 Urnls dip stick/tablet rgnt auto w/o microscopy Mercedez Bernal PA-C Work Phone: Start: 11-16-2022 Radiologic exam ches t 2 views Jennifer Rush SLIP SHEETER.DIGITAL MEDIA MANAGER Work Phone: Start: 10-22-2022 Radex shoulder compl ete minimum 2 views Oziel Rubio SLIP SHEETER.DIGITAL MEDIA MANAGER Work Phone: Start: 12-23-2019 Lipid 1996 panel - S prudence or Plasma Chano Shaw MD Work Phone: Plan of Treatment Date Care Activity Detail Author Start: 2064 RSV Immunization for Adults (1 - 1-dose 75+ series) RSV Immunization for Adults (1 - 1-dose 75+ series) [facility] Start: 2039 Zoster Vaccines (1 of 2) Zoste r Vaccines (1 of 2) [facility] Start: 11-19-2033 DTaP/Tdap/Td Vaccine s (3 - Td or Tdap) DTaP/Tdap/Td Vaccines (3 - Td or Tdap) [facility] Start: 11-19-2033 Urine microalbumin profile DTaP,Tdap,Td Vaccine (3 - Td or Tdap) [facility] Start: 12-08-2029 Lipid panel Lipid Panel [facility] Start: 08-14-2028 HPV Testing HPV Testing [facility] Start: 08-14-2028 Pap Testing Pap Testing [facility] Start: 08-14-2028 Screening for malign ant neoplasm of cervix [facility] Start: 06-02-2028 Urine microalbumin profile DTaP,Tdap,Td Vaccine (2 - Td or Tdap) [facility] Start: 08-14-2026 Screening for malign ant neoplasm of cervix [facility] Start: 12-09-2025 End: 12-09-2025 Patient encounter procedure 12/09/2025 1:30 PM EST Office Visit [address] [address] Chano Shaw MD [address] [place] [id number] [facility] Start: 12-03-2025 Depression Screening Depression Scre ening [facility] Start: 06-07-2025 Influenza vaccination Influenz a Vaccine (Season Ended) [facility] Start: 04-05-2025 Influenza vaccination Influenza Vacc ine (#1) [facility] Comment on above: Postponed from 06/07 (Patient Refused) Start: 03-08-2025 End: 03-08-2025 Patient encounter procedure 03/08/2025 1:00 PM EDT Office Visit OB/Gynecology [address] [place] [address] Yanely Uriarte, JACQUIE.DIGITAL MEDIA MANAGER [address] [place] [address] Annual OB/Gynecology Comment on above: Annual Start: 01-05-2025 Hepatitis B Vaccines (2 of 2 - CpG 2-dose series) Hepatitis B Vaccines (2 of 2 - CpG 2-dose series) [facility] Start: 12-22-2024 Lipid panel Lipid Panel [facility] Start: 12-08-2024 End: 12-03-2025 Comprehensive metabolic 1998 panel - Serum or Plasma Comprehensive metabolic panel Lab Routine Screening for diabetes mellitus Expected: 12/08/2024 (Approximate), Expires: 12/03/2025 [facility] Comment on above: Expected: 12/08/2024 (Approximate), Expires: 12/03/2025 Start: 12-08-2024 End: 12-03-2025 Lipid 1996 panel - Serum or Plasma Lipid panel Lab Routine Screening for lipid disorders Expected: 12/08/2024 (Approximate), Expires: 12/03/2025 [facility] Work Phone: Comment on above: Expected: 12/08/2024 (Approximate), Expires: 12/03/2025 Start: 06-07-2024 Covid-19 Vaccine () Covid-19 Vaccine () [facility] Start: 06-07-2024 Influenza vaccination [facility] Start: 03-06-2024 End: 03-06-2024 Patient encounter procedure 03/06/2024 1:40 PM EDT Office Visit OB/Gynecology [address] [place] [address] Ruma Tuttle MD [address] [place] [address] 6wk PP OB/Gynecology Comment on above: 6wk PP Start: 01-24-2024 Patient discharge [facility] Start: 01-23-2024 Documentation procedure [facility] Start: 01-23-2024 Administration of medication [facility] Start: 01-23-2024 Application of ice collar, cap or bag [facility] Start: 01-23-2024 Catheterization of vein [facility] Start: 01-23-2024 Introduction of urin starr catheter [facility] Start: 01-23-2024 Measuring intake and output [facility] Start: 01-23-2024 Notification of physician [facility] Start: 01-23-2024 Procedure discontinued [facility] Start: 01-23-2024 Provision of activit y privileges [facility] Start: 01-23-2024 Vital signs measurements [facility] Start: 01-23-2024 End: 01-23-2024 [facility] Start: 01-23-2024 Consultation [facility] Start: 01-22-2024 Admission procedure [facility] Start: 01-22-2024 Verification routine [facility] Start: 10-07-2023 Behavioral Health Screening Behavioral Health Screening [facility] Start: 10-07-2023 Depression Assessment Depression Ass essment [facility] Start: 06-07-2023 Covid-19 Vaccine () Covid-19 Vaccine ( season) [facility] Start: 06-07-2023 Influenza vaccination [facility] Start: 10-07-2022 DEPRESSION ASSESSMENT DEPRESSION ASS ESSMENT [facility] Start: 06-07-2022 Influenza vaccination INFLUENZA (#1) [facility] Start: 10-07-2021 COVID-19 VACCINE (3 - Booster for Moderna series) COVID-19 VACCINE (3 - Booster for Moderna series) [facility] Start: 10-07-2021 COVID-19 VACCINE (3 - Moderna series) COVID-19 VACCINE (3 - Moderna series) [facility] Start: 08-16-2021 PAP TESTING PAP TESTING [facility] Start: 2019 HPV TESTING HPV TESTING [facility] Start: 2019 Screening for malign ant neoplasm of cervix HPV/Cotest [facility] Start: 2008 Hepatitis B Vaccine (1 of 3 - 19+ 3-dose series) Hepatitis B Vaccine (1 of 3 - 19+ 3-dose series) [facility] Start: 2008 Urine microalbumin profile DTAP,TDAP,TD (1 - Tdap) [facility] Start: 2007 Anxiety Screening Anxiety Screening [facility] Start: 2007 Depression Screening Depression Scre ening [facility] Start: 2007 HEPATITIS C SCREENING HEPATITIS C SC SHALOM [facility] Start: 1989 HEPATITIS B (1 of 3 - 3-dose series) HEPATITIS B (1 of 3 - 3-dose series) [facility] Start: 1989 Hepatitis B Vaccine (1 of 3 - 3-dose series) Hepatitis B Vaccine (1 of 3 - 3-dose series) [facility] Bacteria identified in Urine by Culture URINE CULTURE Microbiology Routine Acute UTI 04/22/2023 11:01 AM EDT [facility] Work Phone: End: 02-08-2024 nonstress test NON-STRESS TEST Procedures Routine Encounter for supervision of high risk in third trimester, antepartum Gestational diabetes mellitus, class A1 Maternal obesity syndrome in third trimester BMI 35.0-35.9,adult Once per week for 5 Occurrences starting 12/20/2023 until 02/08/2024 [facility] Work Phone: Comment on above: Once per week for 5 Occurrences starting 12/20/2023 until 02/08/2024 Influenza virus A an d B RNA and SARS-CoV-2 (COVID-19) N gene panel - Respiratory specimen by BERTO with probe detection COVID & INFLUENZA A/B NAAT, ROUTINE Microbiology Routine Exposure to influenza Ordered: 09/21/2023 [facility] Work Phone: Comment on above: Ordered: 09/21/2023 Patient Education After a Vaginal [facility] Work Phone: Patient referral [facility] Work Phone: ROUTINE, GR OUP B STREP PCR ROUTINE, GROUP B STREP PCR Microbiology Routine 35 weeks gestation of Encounter for supervision of high risk in third trimester, antepartum Gestational diabetes mellitus, class A1 Anemia complicating , third trimester 12/27/2023 4:44 PM EDT [facility] Work Phone: URINE OB DIP B/O URINE OB DIP B/ O Lab Routine Encounter for supervision of high risk in third trimester, antepartum Gestational diabetes mellitus, class A1 Anemia complicating , third trimester 34 weeks gestation of Ordered: 12/20/2023 [facility] Work Phone: Comment on above: Ordered: 12/20/2023 [facility] Immunizations Immunization Date Immunization Notes Care Provider [place] godoy 03-04-2025 Hepatitis B vaccine (recombinant), CpG adjuvanted Chano Shaw MD Work Phone: [facility] 11-19-2023 tetanus toxoid, redu julián diphtheria toxoid, and acellular pertussis vaccine, adsorbed Juliana Pritchard APRN.CNM Work Phone: [facility] 08-11-2018 influenza, seasonal, injectable Chano Shaw MD Work Phone: [facility] 08-11-2018 influenza virus vaccine, unspecified formulation [facility] Work Phone: [facility] 06-02-2018 tetanus toxoid, redu julián diphtheria toxoid, and acellular pertussis vaccine, adsorbed Chano Shaw MD Work Phone: [facility] Payers Date Payer Category Payer Self-pay [id number] 2021 Private Health Insurance [id number] 2019 [facility] [id number] 2019 Private Health Insurance [id number] Unknown [id number] Unknown [id number] Unknown [id number] Social History Date Type Detail Facility Start: 10-08-2022 Tobacco smoking stat [place] [facility] Work Phone: Start: 10-08-2022 Tobacco use and exposure Smokeless tobacco non-user [facility] Work Phone: Start: 05-29-2021 End: 10-08-2022 Alcohol intake Current drinker of alcohol (finding) [facility] Start: 01-17-2013 Alcohol Comment OCCASIONALLY, NOT WHILE [facility] Start: 1990 Sex Assigned At Not on file C [facility] Start: 04-22-2023 End: 12-08-2024 History of Social function [facility] Start: 04-22-2023 End: 12-08-2024 Tobacco use panel [facility] National Score (1-10 0), lower number is lower risk 63 [facility] Start: 05-08-2023 [facility] Start: 01-22-2024 [facility] Start: 1990 Sex Assigned At Female W [facility] Has the [employer], [employer], or water [employer] threatened to shut off services in your home in past 12Mo No [facility] Are you now , , , , never or living with a partner? [facility] How often to you hav e a drink containing alcohol? 2-4 times a month [facility] How many standard drinks containing alcohol do you have on a typical day? 1 or 2 [facility] How often do you hav e 6 or more drinks on 1 occasion? Less than monthly [facility] How hard is it for y ou to pay for the very basics like food, housing, medical care, and heating Not very hard [facility] Do you feel stress - tense, restless, nervous, or anxious, or unable to sleep at night because your mind is troubled all the time - these days [OSQ] Not at all [facility] (I/We) worried wheth er (my/our) food would run out before (I/we) got money to buy more. Never true [facility] Start: 12-03-2024 Alcohol Comment occasional [facility] Start: 05-07-2022 Sex Female (finding) [facility] How often do you nee d to have someone help you when you read instructions, pamphlets, or other written material from your doctor or pharmacy [SILS] Never [facility] Medical Equipment Procedure Code Equipment Code Equipment Origin al Text Equipment Identifier Dates Use as directed to check glucose levels up to seven times daily. [id number], [id number] Start: 11-06-2023 End: 08-28-2024 Comment on above: Use as directed to c heck glucose levels up to seven times daily. Goals Date Patient Goal Desired Activity /State Functional Status Date Assessment Result Facility 12-08-2024 Total score [AUDIT-C] 3 12/09/19 7:34 AM EST Katia Miramontes MA [facility] 12-03-2024 Patient Health Quest ionnaire 2 item (PHQ-2) [Reported] [facility] Clinical Notes 10-08-2022 to 12-09-2024 Telephone Encounter - Gina Jordan - 12/09/2024 4:30 PM ESTTelephone Encounter - Gina Jordan - 12/09/2024 4:30 PM ESTTelephone Encounter - Shirley Sexton MA - 12/09/2024 10:06 AM EST Note Date & Type Note Facility 12-09-2024 Telephone encount er Note Message released to patient as written. ----- Message from Chano Shaw MD sent at 12/09/2024 5:29 AM EST ----- Blood sugar and chemistry are normal. Cholesterol total and good are good, bad is borderline and triglycerides are borderline very strict low-fat low-carb diet and recheck in 1 year. Left a message to return call. Patient's further questions if applicable: No further questions, Patient verbalized understanding. Were all questions from office addressed or relayed to the patient from encounter: yes [facility] 12-09-2024 Miscellaneous Notes Formattin g of this note is different from the original. Message released to patient as written. ----- Message from Chano Shaw MD sent at 12/09/2024 5:29 AM EST ----- Blood sugar and chemistry are normal. Cholesterol total and good are good, bad is borderline and triglycerides are borderline very strict low-fat low-carb diet and recheck in 1 year. Left a message to return call. Patient's further questions if applicable: No further questions, Patient verbalized understanding. Were all questions from office addressed or relayed to the patient from encounter: yes ----- Message from Chano Shaw MD sent at 12/09/2024 5:29 AM EST ----- Blood sugar and chemistry are normal. Cholesterol total and good are good, bad is borderline and triglycerides are borderline very strict low-fat low-carb diet and recheck in 1 year. Left a message to return call. documented in this encounter [facility] 12-09-2024 Telephone encount er Note ----- Message from Chano Shaw MD sent at 12/09/2024 5:29 AM EST ----- Blood sugar and chemistry are normal. Cholesterol total and good are good, bad is borderline and triglycerides are borderline very strict low-fat low-carb diet and recheck in 1 year. Left a message to return call. [facility] 12-08-2024 History of Presen t illness Narrative Patient verified by last name and date of . Images from the original note were not included. 12/08/2024 Pelon Driscoll (: 1990) is a 34 y.o. female , Established patient, here for evaluation of the following chief complaint(s): New Patient, Annual Exam, Blood Work, and Health Maintenance (Mmr vaccine- done as child/Varicella vaccine- had chicken pox/Hep b vaccine- agree/Flu vaccine- refuse/3rd covid vaccine- not done and will not get any more ) ASSESSMENT/PLAN: 1. Annual physical exam Comments: Healthy female 2. Screening for diabetes mellitus - Comprehensive metabolic panel 3. Screening for lipid disorders - Lipid panel 4. Immunization due - HepB-CPG 5. Influenza vaccine refused Follow up in about 1 year (around 12/08/2025). SUBJECTIVE/OBJECTIVE: CHAPO Mejia comes in today for an annual exam, she has no complaints she is on no medications and she is refusing well female exams. She needs fasting lab work and she is agreeable for a hepatitis B series Review of Systems Constitutional: Negative for chills and fever. Respiratory: Negative for shortness of breath. Cardiovascular: Negative for chest pain and palpitations. Gastrointestinal: Negative for abdominal pain, blood in stool, constipation and diarrhea. Genitourinary: Negative for dyspareunia, dysuria, frequency, hematuria and urgency. Neurological: Negative for weakness and numbness. Psychiatric/Behavioral: Negative for dysphoric mood. The patient is not nervous/anxious. Vitals: 12/08/24 0657 BP: 106/69 Pulse: 75 SpO2: 96% Weight: 225 lb (102 kg) Height: 5' 5 (1.651 m) Physical Exam Vitals and nursing note reviewed. Constitutional: General: She is not in acute distress. Appearance: Normal appearance. HENT: Head: Normocephalic. Right Ear: Tympanic membrane, ear canal and external ear normal. Left Ear: Tympanic membrane, ear canal and external ear normal. Mouth/Throat: Mouth: Mucous membranes are moist. Pharynx: Oropharynx is clear. Eyes: Extraocular Movements: Extraocular movements intact. Pupils: Pupils are equal, round, and reactive to light. Neck: Thyroid: No thyromegaly. Cardiovascular: Rate and Rhythm: Normal rate and regular rhythm. Heart sounds: Normal heart sounds. No murmur heard. Pulmonary: Effort: Pulmonary effort is normal. Breath sounds: Normal breath sounds. Abdominal: General: Bowel sounds are normal. Palpations: Abdomen is soft. Musculoskeletal: General: Normal range of motion. Cervical back: Normal range of motion. Lymphadenopathy: Cervical: No cervical adenopathy. Skin: General: Skin is warm and dry. Neurological: General: No focal deficit present. Mental Status: She is alert and oriented to person, place, and time. Psychiatric: Mood and Affect: Mood normal. An electronic signature was used to authenticate this note. Chano Shaw MD 12/08/2024 7:46 AM Patient verified by last name and . After obtaining consent, and per orders of Dr. Shaw, injection of Hep B given in the Right Deltoid by Kimberli Hood. Patient instructed to report any adverse reactions immediately. documented in this encounter [facility] 11-18-2024 Note HNO ID: [id number] Author: ARYAN ALEMAN MD Service: ? Author Type: Physician Type: Progress Notes Filed: 11/18/2024 17:30 Note Text: Patient presents with: Abdominal Pain: Left abdominal pain radiating into back x 2 weeks HPI: Abdominal pain: Duration: bothering her for a couple weeks, constant since last night Location: left upper quadrant Character: dull and aching Radiation: to the left mid back Aggravating: bending Relieving: Pain relievers: ibuprofen. Denies any regular NSAID use. Associated: had pyrosis after raspberry lemonade, patient and family have had cough/rhinorrhea, started menstrual bleeding yesterday Pertinent negatives: Denies fever, chest pain, shortness of breath, acid brash, nausea, vomiting, diarrhea, constipation, melena, hematochezia, dysuria, urinary frequency, dizziness No alcohol use. No personal or family history of kidney stones PAST MEDICAL HISTORY Diagnosis Date Anemia complicating , second trimester 08/14/2023 NEGATIVE MEDICAL HISTORY PAST SURGICAL HISTORY Procedure Laterality Date NONE MEDICATIONS: No prescriptions on file. ALLERGIES: ALLERGIES Allergen Reactions Bee Sting Itching Poison Loida VITALS: BP 100/68 Pulse 68 Temp 36.3 ?C (97.4 ?F) Resp 20 Wt 103.5 kg (228 lb 2.8 oz) LMP 08/12/2024 (Approximate) SpO2 98% BMI 37.97 kg/m? PHYSICAL EXAM: GEN: pleasant, no acute distress, alert HEENT: PERRL, EOMI, MMM, no pharyngeal erythema NECK: supple, no lymphadenopathy, no thyromegaly HEART: regular rate, regular rhythm, no murmurs LUNGS: clear to auscultation, no wheezes or crackles, no increased WOB CHEST: left posterior 11-12 rib discomfort with palpation. No anterior rib tenderness. ABD: soft, non-distended, no masses palpated, tender LUQ, discomfort mid epigastrium EXT: no clubbing, no cyanosis, no edema ASSESSMENT/PLAN: 1. Left upper quadrant pain - ICD9: 789.02, ICD10: R10.12 Differential discussed with patient: strain from recent coughing, gastritis, splenomegaly, renal calculus among other conditions. She declines orders for LUQ ultrasound and blood tests to complete later this week when available. She has follow up scheduled with her PCP for the pain and would like to wait until then. She will proceed to the ER with increasing pain, hematemesis, hematochezia, shortness of breath, dizziness, chest pain, or lethargy. She may consider starting omeprazole while awaiting follow up with her PCP. Aryan Aleman MD [facility] 11-18-2024 History of Presen t illness Narrative Patient presents with: Abdominal Pain: Left abdominal pain radiating into back x 2 weeks HPI: Abdominal pain: Duration: bothering her for a couple weeks, constant since last night Location: left upper quadrant Character: dull and aching Radiation: to the left mid back Aggravating: bending Relieving: Pain relievers: ibuprofen. Denies any regular NSAID use. Associated: had pyrosis after raspberry lemonade, patient and family have had cough/rhinorrhea, started menstrual bleeding yesterday Pertinent negatives: Denies fever, chest pain, shortness of breath, acid brash, nausea, vomiting, diarrhea, constipation, melena, hematochezia, dysuria, urinary frequency, dizziness No alcohol use. No personal or family history of kidney stones PAST MEDICAL HISTORY Diagnosis Date Anemia complicating , second trimester 08/14/2023 NEGATIVE MEDICAL HISTORY PAST SURGICAL HISTORY Procedure Laterality Date NONE MEDICATIONS: No prescriptions on file. ALLERGIES: ALLERGIES Allergen Reactions Bee Sting Itching Poison Loida VITALS: BP 100/68 Pulse 68 Temp 36.3 C (97.4 F) Resp 20 Wt 103.5 kg (228 lb 2.8 oz) LMP 08/12/2024 (Approximate) SpO2 98% BMI 37.97 kg/m PHYSICAL EXAM: GEN: pleasant, no acute distress, alert HEENT: PERRL, EOMI, MMM, no pharyngeal erythema NECK: supple, no lymphadenopathy, no thyromegaly HEART: regular rate, regular rhythm, no murmurs LUNGS: clear to auscultation, no wheezes or crackles, no increased WOB CHEST: left posterior 11-12 rib discomfort with palpation. No anterior rib tenderness. ABD: soft, non-distended, no masses palpated, tender LUQ, discomfort mid epigastrium EXT: no clubbing, no cyanosis, no edema ASSESSMENT/PLAN: 1. Left upper quadrant pain - ICD9: 789.02, ICD10: R10.12 Differential discussed with patient: strain from recent coughing, gastritis, splenomegaly, renal calculus among other conditions. She declines orders for LUQ ultrasound and blood tests to complete later this week when available. She has follow up scheduled with her PCP for the pain and would like to wait until then. She will proceed to the ER with increasing pain, hematemesis, hematochezia, shortness of breath, dizziness, chest pain, or lethargy. She may consider starting omeprazole while awaiting follow up with her PCP. Aryan Aleman MD documented in this encounter [facility] 11-18-2024 Telephone encount er Note S: Patient spoke with [facility] nurse regarding rib pain B: Onset of symptoms/concern 1 week A: Patient reports left side rib pain on left side. Around side into back where breast to midway down where ribs end. Started 1 week ago but has become more constant since yesterday. Is speaking in complete sentences throughout triage. Denies known injury, difficulty breathing, abnormal sweating, nausea, or vomiting. R: Discussed UC today to be seen. Has not been seen in the office since . Appointment to re-establish care with Dr. Shaw scheduled for 12-08-24 at 7am. Added to wait-list. You will want to arrive 10 minutes early, bring your photo ID, insurance card, and medication list. Patient understands care advice. No further needs at this time. Patient instructed to call back with new/worsening symptoms, concerns or questions. Reason for Disposition All other patients with chest pain (Exception: Fleeting chest pain lasting a few seconds.) Chest pain lasting longer than 5 minutes and occurred in last 3 days (72 hours) (Exception: Feels exactly the same as previously diagnosed heartburn and has accompanying sour taste in mouth.) Protocols used: Chest [id number] [facility] [employer] 11-18-2024 Miscellaneous Notes Formattin g of this note might be different from the original. S: Patient spoke with [facility] nurse regarding rib pain B: Onset of symptoms/concern 1 week A: Patient reports left side rib pain on left side. Around side into back where breast to midway down where ribs end. Started 1 week ago but has become more constant since yesterday. Is speaking in complete sentences throughout triage. Denies known injury, difficulty breathing, abnormal sweating, nausea, or vomiting. R: Discussed UC today to be seen. Has not been seen in the office since . Appointment to re-establish care with Dr. Shaw scheduled for 12-08-24 at 7am. Added to wait-list. You will want to arrive 10 minutes early, bring your photo ID, insurance card, and medication list. Patient understands care advice. No further needs at this time. Patient instructed to call back with new/worsening symptoms, concerns or questions. Reason for Disposition All other patients with chest pain (Exception: Fleeting chest pain lasting a few seconds.) Chest pain lasting longer than 5 minutes and occurred in last 3 days (72 hours) (Exception: Feels exactly the same as previously diagnosed heartburn and has accompanying sour taste in mouth.) Protocols used: Chest [id number] documented in this encounter [facility] 08-28-2024 Note HNO ID: [id number] Author: NEGRO ALBERTO PA Service: ? Author Type: Physician Combined Rail Operator Type: Progress Notes Filed: 08/28/2024 10:48 Note Text: This note was created using [employer]. Subjective Pelon Driscoll is a 33 year old female. HPI 33-year-old female presents for congestion, cough x 1 week. Patient states she has had a cough for the past week. She states it is productive. She has some nasal congestion. No fevers. No chest pain or shortness of breath. No history of COPD or asthma. She was exposed to pneumonia and bronchitis in her work. She has been taking pcyy-ieg-eogvswc honey cough medication with minimal improvement. No other complaint. PAST MEDICAL HISTORY Diagnosis Date Anemia complicating , second trimester 08/14/2023 NEGATIVE MEDICAL HISTORY PAST SURGICAL HISTORY Procedure Laterality Date NONE ALLERGIES Bee Sting and Poison Loida MEDICATIONS predniSONE (DELTASONE) 20 mg tablet Take 2 tablets by mouth once daily for 4 days. Take daily with food. doxycycline monohydrate 100 mg tablet Take 1 tablet by mouth two times a day for 7 days. FAMILY HISTORY Problem Relation Age of Onset No Known Problems Mother No Known Problems Father Diabetes Maternal Grandmother Hypertension Maternal Grandmother COPD Maternal Grandfather No Known Problems Paternal Grandmother No Known Problems Paternal Grandfather Social History Tobacco Use Smoking status: Never Smokeless tobacco: Never Vaping Use Vaping status: Some Days Substance Use Topics Alcohol use: Yes Comment: OCCASIONALLY, NOT WHILE Drug use: No Review of Systems Constitutional: Negative for chills and fever. HENT: Positive for congestion. Negative for ear pain and sore throat. Respiratory: Positive for cough. Negative for shortness of breath. Cardiovascular: Negative for chest pain. Gastrointestinal: Negative for diarrhea and vomiting. Objective BP 115/79 Pulse 75 Temp 36.1 ?C (96.9 ?F) Resp 18 Wt 100.2 kg (220 lb 14.4 oz) LMP 08/12/2024 (Approximate) SpO2 97% No BMI 36.76 kg/m? Physical Exam Vitals and nursing note reviewed. Constitutional: General: She is not in acute distress. Appearance: Normal appearance. She is not toxic-appearing. HENT: Right Ear: Tympanic membrane and ear canal normal. Left Ear: Ear canal normal. Nose: Congestion present. Mouth/Throat: Mouth: Mucous membranes are moist. Eyes: Conjunctiva/sclera: Conjunctivae normal. Cardiovascular: Rate and Rhythm: Normal rate and regular rhythm. Pulmonary: Effort: Pulmonary effort is normal. Breath sounds: Normal breath sounds. No wheezing, rhonchi or rales. Skin: General: Skin is warm and dry. Neurological: Mental Status: She is alert. Assessment and Plan ASSESSMENT/PLAN: 1. Sinobronchitis - ICD9: 473.9, 490, ICD10: J32.9, J40 -Discussed CXR with the patient, but she prefers to avoid radiation, also has her child with her today. -Will treat with prednisone and doxycycline. If symptoms do not improve, needs follow-up with PCP. Patient agreeable. - Will begin treatment with Doxycycline - Supportive care with plenty of fluids, rest, and analgesia prn. Diagnosis and treatment plan were discussed and questions were answered to the patient's satisfaction. Pt acknowledged understanding of concepts and follow up plan. Specific signs and symptoms that would indicate the need for higher level of care were discussed in detail warranting prompt ER evaluation. ROSANA Cates [facility] 08-28-2024 History of Presen t illness Narrative This note was created using [employer]. Subjective Pelon Driscoll is a 33 year old female. HPI 33-year-old female presents for congestion, cough x 1 week. Patient states she has had a cough for the past week. She states it is productive. She has some nasal congestion. No fevers. No chest pain or shortness of breath. No history of COPD or asthma. She was exposed to pneumonia and bronchitis in her work. She has been taking hbbq-jcw-nwahxua honey cough medication with minimal improvement. No other complaint. PAST MEDICAL HISTORY Diagnosis Date Anemia complicating , second trimester 08/14/2023 NEGATIVE MEDICAL HISTORY PAST SURGICAL HISTORY Procedure Laterality Date NONE ALLERGIES Bee Sting and Poison Loida MEDICATIONS predniSONE (DELTASONE) 20 mg tablet Take 2 tablets by mouth once daily for 4 days. Take daily with food. doxycycline monohydrate 100 mg tablet Take 1 tablet by mouth two times a day for 7 days. FAMILY HISTORY Problem Relation Age of Onset No Known Problems Mother No Known Problems Father Diabetes Maternal Grandmother Hypertension Maternal Grandmother COPD Maternal Grandfather No Known Problems Paternal Grandmother No Known Problems Paternal Grandfather Social History Tobacco Use Smoking status: Never Smokeless tobacco: Never Vaping Use Vaping status: Some Days Substance Use Topics Alcohol use: Yes Comment: OCCASIONALLY, NOT WHILE Drug use: No Review of Systems Constitutional: Negative for chills and fever. HENT: Positive for congestion. Negative for ear pain and sore throat. Respiratory: Positive for cough. Negative for shortness of breath. Cardiovascular: Negative for chest pain. Gastrointestinal: Negative for diarrhea and vomiting. Objective BP 115/79 Pulse 75 Temp 36.1 C (96.9 F) Resp 18 Wt 100.2 kg (220 lb 14.4 oz) LMP 08/12/2024 (Approximate) SpO2 97% No BMI 36.76 kg/m Physical Exam Vitals and nursing note reviewed. Constitutional: General: She is not in acute distress. Appearance: Normal appearance. She is not toxic-appearing. HENT: Right Ear: Tympanic membrane and ear canal normal. Left Ear: Ear canal normal. Nose: Congestion present. Mouth/Throat: Mouth: Mucous membranes are moist. Eyes: Conjunctiva/sclera: Conjunctivae normal. Cardiovascular: Rate and Rhythm: Normal rate and regular rhythm. Pulmonary: Effort: Pulmonary effort is normal. Breath sounds: Normal breath sounds. No wheezing, rhonchi or rales. Skin: General: Skin is warm and dry. Neurological: Mental Status: She is alert. Assessment and Plan ASSESSMENT/PLAN: 1. Sinobronchitis - ICD9: 473.9, 490, ICD10: J32.9, J40 -Discussed CXR with the patient, but she prefers to avoid radiation, also has her child with her today. -Will treat with prednisone and doxycycline. If symptoms do not improve, needs follow-up with PCP. Patient agreeable. - Will begin treatment with Doxycycline - Supportive care with plenty of fluids, rest, and analgesia prn. Diagnosis and treatment plan were discussed and questions were answered to the patient's satisfaction. Pt acknowledged understanding of concepts and follow up plan. Specific signs and symptoms that would indicate the need for higher level of care were discussed in detail warranting prompt ER evaluation. ROSANA Cates documented in this encounter [facility] 03-06-2024 Note HNO ID: [id number] Author: RUMA TUTTLE MD Service: ? Author Type: Physician Type: Progress Notes Filed: 03/16/2024 07:16 Note Text: Bevel Mill Operator offered: Patient declines. VISIT Pelon Driscoll is a 33 year old year old here for visit. Delivery Summary: by ANTONI on 01/23/2024 - knot in cord Male - Boo 6lbs12.4oz ROS/ Recovery: Feeding: Bottle feeding problems: None Menses since delivery: light flow Menstrual pattern prior to : Regular periods [place] since delivery: Not resumed Depression: denies symptoms of depression. OB Depression and Anxiety Screening- This Encounter (since 03/15/2024) None Emotional support: Yes Bowel symptoms: Negative for abdominal discomfort, blood in stools or black stools and change in bowel habits Abdomen: N/A Bladder symptoms: No dysuria, gross hematuria, urinary frequency, urinary urgency, or incontinence Other issues: None Last Pap: 2022 normal HPV: negative PAST MEDICAL HISTORY Diagnosis Date Anemia complicating , second trimester 08/14/2023 NEGATIVE MEDICAL HISTORY PAST SURGICAL HISTORY Procedure Laterality Date NONE FAMILY HISTORY Problem Relation Age of Onset No Known Problems Mother No Known Problems Father Diabetes Maternal Grandmother Hypertension Maternal Grandmother COPD Maternal Grandfather No Known Problems Paternal Grandmother No Known Problems Paternal Grandfather Social History Tobacco Use Smoking status: Never Smokeless tobacco: Never Vaping Use Vaping Use: Some days Substance Use Topics Alcohol use: Yes Comment: OCCASIONALLY, NOT WHILE Drug use: No PHYSICAL EXAMINATION: BP 108/64 Wt 201 lb (91.2kg) LMP 02/28/2024 GENERAL: pleasant, female in no apparent distress HEENT: Normocephalic, atraumatic, mucus membranes moist, and no lesions NECK: Supple, full range of motion, no adenopathy, and thyroid normal DERMATOLOGY: Normal, without lesions, non-icteric, and non-hirsute BREAST: soft, non-tender, symmetric, no dominant mass, normal nipple-areolar complex, no lymphadenopathy, and no nipple discharge CHEST: Normal inspiratory effort ABDOMEN: soft, non-tender, and no masses. INCISION: N/A PELVIC: external genitalia normal, normal Bartholin's glands, urethra, Dennison's glands, no vulvar lesions, no cervical lesions, good vaginal support, physiologic discharge present, normal appearing perineal body and perianal region BIMANUAL: uterus normal size, shape and consistency, no adnexal masses, and non-tender NEURO: alert and oriented x3,exam grossly non-focal EXTREMITIES: normal ASSESSMENT AND PLAN: 33 year old status post with normal course. Contraception plan: none Follow up: GDM: Needs 2 hour GTT, RTC for annual exams and PRN Ruma Tuttle MD [facility] 03-06-2024 History of Presen t illness Narrative [employer] Operator offered: Patient declines. VISIT Pelon Driscoll is a 33 year old year old here for visit. Delivery Summary: by ANTONI on 01/23/2024 - knot in cord Male - Boo 6lbs12.4oz ROS/ Recovery: Feeding: Bottle feeding problems: None Menses since delivery: light flow Menstrual pattern prior to : Regular periods [place] since delivery: Not resumed Depression: denies symptoms of depression. OB Depression and Anxiety Screening- This Encounter (since 03/15/2024) None Emotional support: Yes Bowel symptoms: Negative for abdominal discomfort, blood in stools or black stools and change in bowel habits Abdomen: N/A Bladder symptoms: No dysuria, gross hematuria, urinary frequency, urinary urgency, or incontinence Other issues: None Last Pap: 2022 normal HPV: negative PAST MEDICAL HISTORY Diagnosis Date Anemia complicating , second trimester 08/14/2023 NEGATIVE MEDICAL HISTORY PAST SURGICAL HISTORY Procedure Laterality Date NONE FAMILY HISTORY Problem Relation Age of Onset No Known Problems Mother No Known Problems Father Diabetes Maternal Grandmother Hypertension Maternal Grandmother COPD Maternal Grandfather No Known Problems Paternal Grandmother No Known Problems Paternal Grandfather Social History Tobacco Use Smoking status: Never Smokeless tobacco: Never Vaping Use Vaping Use: Some days Substance Use Topics Alcohol use: Yes Comment: OCCASIONALLY, NOT WHILE Drug use: No PHYSICAL EXAMINATION: BP 108/64 Wt 201 lb (91.2kg) LMP 02/28/2024 GENERAL: pleasant, female in no apparent distress HEENT: Normocephalic, atraumatic, mucus membranes moist, and no lesions NECK: Supple, full range of motion, no adenopathy, and thyroid normal DERMATOLOGY: Normal, without lesions, non-icteric, and non-hirsute BREAST: soft, non-tender, symmetric, no dominant mass, normal nipple-areolar complex, no lymphadenopathy, and no nipple discharge CHEST: Normal inspiratory effort ABDOMEN: soft, non-tender, and no masses. INCISION: N/A PELVIC: external genitalia normal, normal Bartholin's glands, urethra, Dennison's glands, no vulvar lesions, no cervical lesions, good vaginal support, physiologic discharge present, normal appearing perineal body and perianal region BIMANUAL: uterus normal size, shape and consistency, no adnexal masses, and non-tender NEURO: alert and oriented x3,exam grossly non-focal EXTREMITIES: normal ASSESSMENT AND PLAN: 33 year old status post with normal course. Contraception plan: none Follow up: GDM: Needs 2 hour GTT, RTC for annual exams and PRN Ruma Tuttle MD documented in this encounter [facility] 01-31-2024 Note HNO ID: [id number] Author: ELLIE OLIVO APRN.EDVIN Service: ? Author Type: Sleeping Car Porter Type: Progress Notes Filed: 01/31/2024 11:41 Note Text: EARLY VISIT Pelon Driscoll is a 33 year old here for 1 week visit. Delivery Summary: by ANTONI on 01/23/2024 - knot in cord Male - Boo 6lbs12.4oz ROS: General: Denies any fever or chills Hypertension Screening: Headache? Yes. Was it successfully treated with Tylenol? Yes Visual Changes? No Epigastric Pain? No Increased Swelling? No Taking any BP medications at home? No If applicable, monitoring BP at home? (If Yes, include results) NA Mood: normal Depression: denies symptoms of depression. OB Depression and Anxiety Screening- This Encounter (since 01/30/2024) Over the past 2 weeks have you felt down, depressed, or hopeless? Negative Over the past two weeks, have you felt little interest or pleasure in doing things?? Negative Feeling nervous, anxious or on edge 0-Not at all Not being able to stop or control worrying 0-Not al all Anxiety Pre-Screening Total (If >/= 3 additional questions will be reviewed) 0 Feeding: Bottle feeding problems: None Bladder: No dysuria, gross hematuria, urinary frequency, urinary urgency, or incontinence Bowel symptoms: Negative for abdominal discomfort, blood in stools or black stools Abdomen: N/A Bleeding: medium flow Bottom and Perineum: No issues Sleep: no sleep concerns, feels rested [place] since delivery: Not resumed Emotional support: Yes Exercise: N/A Other issues: None PHYSICAL EXAMINATION: LMP 04/24/2023 (Exact Date) General: pleasant,female in no apparent distress, AANDO x 3. Skin warm and intact. Breast: Deferred Abdomen: Deferred /Incision: No incisional redness, swelling, or drainage Pelvic: Deferred Bimanual: Deferred ASSESSMENT AND PLAN: 33 year old status post with normal course. Contraception plan: none. Reinforced 6-week pelvic rest. Follow up: Return to Clinic for 6 week visit and as needed Ellie Olivo APRN.[facility] 01-31-2024 History of Presen t illness Narrative EARLY VISIT Pelon Driscoll is a 33 year old here for 1 week visit. Delivery Summary: by ANTONI on 01/23/2024 - knot in cord Male - Boo 6lbs12.4oz ROS: General: Denies any fever or chills Hypertension Screening: Headache? Yes. Was it successfully treated with Tylenol? Yes Visual Changes? No Epigastric Pain? No Increased Swelling? No Taking any BP medications at home? No If applicable, monitoring BP at home? (If Yes, include results) NA Mood: normal Depression: denies symptoms of depression. OB Depression and Anxiety Screening- This Encounter (since 01/30/2024) Over the past 2 weeks have you felt down, depressed, or hopeless? Negative Over the past two weeks, have you felt little interest or pleasure in doing things? Negative Feeling nervous, anxious or on edge 0-Not at all Not being able to stop or control worrying 0-Not al all Anxiety Pre-Screening Total (If >/= 3 additional questions will be reviewed) 0 Feeding: Bottle feeding problems: None Bladder: No dysuria, gross hematuria, urinary frequency, urinary urgency, or incontinence Bowel symptoms: Negative for abdominal discomfort, blood in stools or black stools Abdomen: N/A Bleeding: medium flow Bottom and Perineum: No issues Sleep: no sleep concerns, feels rested [place] since delivery: Not resumed Emotional support: Yes Exercise: N/A Other issues: None PHYSICAL EXAMINATION: LMP 04/24/2023 (Exact Date) General: pleasant,female in no apparent distress, A&O x 3. Skin warm and intact. Breast: Deferred Abdomen: Deferred /Incision: No incisional redness, swelling, or drainage Pelvic: Deferred Bimanual: Deferred ASSESSMENT AND PLAN: 33 year old status post with normal course. Contraception plan: none. Reinforced 6-week pelvic rest. Follow up: Return to Clinic for 6 week visit and as needed Ellie Olivo APRN.CNM documented in this encounter [facility] 01-24-2024 Discharge summary Note Date/Time January 24, 2024 6:56am [facility] Medical Records Department [address] [place] [id number] Discharge Summary 01/24/24 0654 MR#: [id number] Acct: [id number] Name: PELON DRISCOLL JESSIE Rep #:[id number] : 1990 33 From: Ellie Olivo CNM PCP: Dr. Chano Shaw MD Status:ADM IN Location: [id number] Providers Date of Admission: 01/22/24 Primary Care Physician: Dr. Chano Shaw MD Reason For Visit: VAG Diagnosis Discharge Diagnosis (1) (spontaneous vaginal delivery): Status: Acute Code(s): O80 - Encounter for full-term uncomplicated delivery (2) Gestational diabetes, diet controlled: Status: Acute Code(s): O24.410 - Gestational diabetes mellitus in , diet controlled Qualifiers: Trimester: third trimester Qualified Code(s): O24.410 - Gestational diabetes mellitus in , diet controlled (3) 39 weeks gestation of : Status: Acute Code(s): Z3A.39 - 39 weeks gestation of Plan PPD 1 Routine care Discharge home Medications at Discharge Home Medications acetaminophen 500 mg tablet 1,000 mg (2 x 500 mg) PO Q6H PRN PRN Pain 1-10 Or Fever #0 tabs 01/24/24 ibuprofen 600 mg tablet 600 mg PO Q6H PRN PRN Pain Score 1-10 #0 tabs 01/24/24 Hospital Course Operations None Procedures None Summary of Care Provided Minutes Spent on Discharge: 10 Physical Exam Const alert and no apparent distress General Appearance: cooperative and comfortable Exam Limitations: no limitations HEENT normocephalic Eyes General Eye: normal appearance of both eyes Neck full ROM General: normal visual inspection Chest Chest: symmetrical chest wall rise Resp normal respiratory effort and normal air movement Effort and Inspection: symmetric chest movement Auscultation: clear to auscultation bilaterally Cardio regular rate and regular rhythm GI normal to inspection, nondistended, normoactive bowel sounds Back/Spine normal ROM Extremity full ROM and no calf tenderness General Extremity: normal exam except as noted Skin no rashes or lesions noted Neuro CN's II-XII intact bilaterally Psych mental status grossly normal Weight / BMI Weight Weight: 213 lb 4 oz Body Mass Index (BMI) 35.4 ABG / Lab / Microbiology Data 01/22/24 08:00 Laboratory: Laboratory Results - last 24 hr 01/23/24 06:03: POC Glucose 113 H 01/24/24 04:20: POC Glucose 112 H D/C Instructions Discharge Diet: No restrictions May resume sexual activity in: 6-8 weeks Weight Bearing Status: Weight bearing as tolerated Call your doctor if you observe: Fever of 101 or Higher, Inability to urinate, Using more than 1 pad per hour, Shortness of breath, Chest pain, Calf discomfortand Uncontrolled pain When: 2 weeks virtual visit/ 6 weeks in office Meaningful Use Info Meaningful Use Meaningful Use Diagnoses (Choose all that apply): None applicable Ischemic Stroke Statin Dosing Therapy Reference: STATIN DOSE THERAPY REFERENCE: * Patients > 75 years receive moderate or high dose statin therapy. * Patients 75 years or YOUNGER should receive HIGH intensity statin dose unless contraindicated. You will be required to document reason for non-treatment if statin daily dose does not meet guidelines. HIGH DOSE STATIN THERAPY DAILY Atorvastatin > than or = to 40 mg Rosuvastatin > than or = to 20 mg Amlodipine + Atorvastatin > than or = to 2.5/40 mg Ezetimibe + Simvastatin 10/80 mg Simvastatin 80mg Discharge Plan Admission Admit Date/Time: 01/22/24 08:22 Primary Reason for Your Visit: Labor and Delivery Attending Provider: Ruma Tuttle Primary Care Provider: Chano Shaw Discharge Orders/Prescriptions Prescriptions: New acetaminophen 500 mg Tablet 1,000 mg PO Q6H PRN PRN (Reason: Pain 1-10 Or Fever) Qty: 0 0RF ibuprofen 600 mg Tablet 600 mg PO Q6H PRN PRN (Reason: Pain Score 1-10) Qty: 0 0RF Discontinued naproxen 500 MG tablet 500 mg PO BID PRN Qty: 20 0RF Referrals / Follow Up: Chano Shaw MD [Primary Care Provider] - Disposition Disposition (needs filled in before D/C Order can be placed): Home, Self Care 01/24/24 0657 <Electronically signed by Ellie Olivo CNM> Cosigner Signature (if applicable): CC: EDVIN Olivo; Dr. Chano Shaw MD~ Signed [facility] Work Phone: 1(285) 549-566404-19-2024 [facility] Medical Records Department [address] [place] [address] Discharge Summary 01/24/24 0654 MR#: [id number] Acct: [id number] Name: PELON DRISCOLL JESSIE Rep #: [id number] : 1990 33 From: Ellie Olivo CNM PCP: Dr. Chano Shaw MD Status:ADM IN Location: [id number] Providers Date of Admission: 01/22/24 Primary Care Physician: Dr. Chano Shaw MD Reason For Visit: VAG Diagnosis Discharge Diagnosis (1) (spontaneous vaginal delivery): Status: Acute Code(s): O80 - Encounter for full-term uncomplicated delivery (2) Gestational diabetes, diet controlled: Status: Acute Code(s): O24.410 - Gestational diabetes mellitus in , diet controlled Qualifiers: Trimester: third trimester Qualified Code(s): O24.410 - Gestational diabetes mellitus in , diet controlled (3) 39 weeks gestation of : Status: Acute Code(s): Z3A.39 - 39 weeks gestation of Plan PPD 1 Routine care Discharge home Medications at Discharge Home Medications acetaminophen 500 mg tablet 1,000 mg (2 x 500 mg) PO Q6H PRN PRN Pain 1-10 Or Fever #0 tabs 01/24/24 ibuprofen 600 mg tablet 600 mg PO Q6H PRN PRN Pain Score 1-10 #0 tabs 01/24/24 Hospital Course Operations None Procedures None Summary of Care Provided Minutes Spent on Discharge: 10 Physical Exam Const alert and no apparent distress General Appearance: cooperative and comfortable Exam Limitations: no limitations HEENT normocephalic Eyes General Eye: normal appearance of both eyes Neck full ROM General: normal visual inspection Chest Chest: symmetrical chest wall rise Resp normal respiratory effort and normal air movement Effort and Inspection: symmetric chest movement Auscultation: clear to auscultation bilaterally Cardio regular rate and regular rhythm GI normal to inspection, nondistended, normoactive bowel sounds Back/Spine normal ROM Extremity full ROM and no calf tenderness General Extremity: normal exam except as noted Skin no rashes or lesions noted Neuro CN's II-XII intact bilaterally Psych mental status grossly normal Weight / BMI Weight Weight: 213 lb 4 oz Body Mass Index (BMI) 35.4 ABG / Lab / Microbiology Data 01/22/24 08:00 Laboratory: Laboratory Results - last 24 hr 01/23/24 06:03: POC Glucose 113 H 01/24/24 04:20: POC Glucose 112 H D/C Instructions Discharge Diet: No restrictions May resume sexual activity in: 6-8 weeks Weight Bearing Status: Weight bearing as tolerated Call your doctor if you observe: Fever of 101 or Higher, Inability to urinate, Using more than 1 pad per hour, Shortness of breath, Chest pain, Calf discomfort and Uncontrolled pain When: 2 weeks virtual visit/ 6 weeks in office Meaningful Use Info Meaningful Use Meaningful Use Diagnoses (Choose all that apply): None applicable Ischemic Stroke Statin Dosing Therapy Reference: STATIN DOSE THERAPY REFERENCE: * Patients > 75 years receive moderate or high dose statin therapy. * Patients 75 years or YOUNGER should receive HIGH intensity statin dose unless contraindicated. You will be required to document reason for non-treatment if statin daily dose does not meet guidelines. HIGH DOSE STATIN THERAPY DAILY Atorvastatin > than or = to 40 mg Rosuvastatin > than or = to 20 mg Amlodipine + Atorvastatin > than or = to 2.5/40 mg Ezetimibe + Simvastatin 10/80 mg Simvastatin 80mg Discharge Plan Admission Admit Date/Time: 01/22/24 08:22 Primary Reason for Your Visit: Labor and Delivery Attending Provider: Ruma Tuttle Primary Care Provider: Chano Shaw Discharge Orders/Prescriptions Prescriptions: New acetaminophen 500 mg Tablet 1,000 mg PO Q6H PRN PRN (Reason: Pain 1-10 Or Fever) Qty: 0 0RF ibuprofen 600 mg Tablet 600 mg PO Q6H PRN PRN (Reason: Pain Score 1-10) Qty: 0 0RF Discontinued naproxen 500 MG tablet 500 mg PO BID PRN Qty: 20 0RF Referrals / Follow Up: Chano Shaw MD [Primary Care Provider] - Disposition Disposition (needs filled in before D/C Order can be placed): Home, Self Care 01/24/24 0657 Cosigner Signature (if applicable): CC: EDVIN Olivo; [facility] NoteHNO ID: [id number] Author: RUMA ESTEVEZ RN Service: ? Author Type: Registered Nurse Type: Progress Notes Filed: 01/23/2024 08:30 Note Text: Patient delivered via at [facility] on 01/23/24 per Ruma Tuttle MD. See OB Outcome note. [facility] History of Present illness Narrative* Ruma Estevez RN - 01/23/2024 8:28 AM EDT Patient delivered via at [facility] on 01/23/24 per Ruma Tuttle MD. See OB Outcome note. Ruma Estevez RN [facility]04-17-2024 History and physical note Author Ruma Tuttle [facility] January 22, 2024 7:38pm Note Date/Time January 22, 2024 7:3 8pm [facility] Medical Records Department [address] [place] [address] H&P Exam - CARPENTER SUPERVISOR 01/22/24 1933 MR#: [id number] Acct: [id number] Name: PELON DRISCOLL Rep #:[id number] : 1990 33 From: Ruma Tuttle MD PCP: Dr. Chano Shaw MD Status:ADM IN Location: [id number] HPI - General General Date of Admission: 01/22/24 Date of Service: 01/22/24 Chief Complaint: IOL for gestational diabetes HPI Narrative PELON DRISCOLL, is a 33 F who presents for induction of labor with diet controlled diabetes Maternal Data Information Final WEI: 01/29/24 Gestational age: 39 PFSH PFSH Medical History Gestational diabetes Medical History no medical history Home Medications naproxen 500 mg tablet 500 mg PO BID PRN #20 tabs 05/19/21 [Rx Last Taken Unknown] Allergy/AdvReac Type Severity Reaction Status Date / Time bee venom protein (honey bee) Allergy Swelling Verified 05/19/21 11:56 Social History Smoking Status: Never smoker History 2 Elective abortions Hx Para 1 Spontaneous abortions Hx # Term Pregnancies Ectopic pregnancies Hx # Pregnancies Multiple births # of living children NST FHR Rate Baby A Baseline: 140 Variability:: Moderate Accelerations:: 15 x 15 Decelerations:: None NST Reactive:: Yes FHR Category:: Category I Uterine Activity:: few on admission ROS Constitutional Constitutional: Denies fatigue, fever(s) or malaise Eyes Eyes: Denies change in vision ENT HEENT: Denies dizziness or headache(s) Cardiovascular Cardiovascular: Denies chest pain, dyspnea or lightheadedness Respiratory/Chest Respiratory/Chest: Denies cough or dyspnea Gastrointestinal Gastrointestinal: Denies change in bowel habits Genitourinary Genitourinary: Denies burning urination or genital lesions Integumentary Integumentary: Denies rash Neurologic Neurologic: Denies confusion, dizziness, headache(s), numbness or weakness Vital Signs Vital Signs Vital Signs: 01/22/24 07:20 01/22/24 07:20 01/22/24 07:19 Temperature Temperature Source Temporal Pulse Rate 93 Respiratory Rate Blood Pressure 121/60 H BP Systolic 121 BP Diastolic 60 Pulse Ox 01/22/24 07:19 01/22/24 07:19 01/22/24 08:32 Temperature 97.7 F L Temperature Source Pulse Rate Respiratory Rate 16 Blood Pressure 114/60 BP Systolic 114 BP Diastolic 60 Pulse Ox 01/22/24 08:32 01/22/24 09:02 01/22/24 09:02 Temperature Temperature Source Pulse Rate 80 81 Respiratory Rate Blood Pressure 105/58 L BP Systolic 105 BP Diastolic 58 Pulse Ox 01/22/24 10:20 01/22/24 10:20 01/22/24 10:29 Temperature Temperature Source Pulse Rate 72 Respiratory Rate Blood Pressure 97/52 L 93/51 L BP Systolic 97 93 BP Diastolic 52 51 Pulse Ox 01/22/24 10:29 01/22/24 11:34 01/22/24 11:34 Temperature Temperature Source Pulse Rate 77 123 H Respiratory Rate Blood Pressure 107/64 BP Systolic 107 BP Diastolic 64 Pulse Ox 01/22/24 11:35 01/22/24 11:35 01/22/24 11:34 Temperature Temperature Source Temporal Pulse Rate 105 H Respiratory Rate Blood Pressure BP Systolic BP Diastolic Pulse Ox 98 01/22/24 11:34 01/22/24 11:34 01/22/24 12:07 Temperature 97.5 F L Temperature Source Pulse Rate Respiratory Rate 16 Blood Pressure 109/66 BP Systolic 109 BP Diastolic 66 Pulse Ox 01/22/24 12:07 01/22/24 12:20 01/22/24 12:20 Temperature Temperature Source Pulse Rate 73 65 Respiratory Rate Blood Pressure 117/70 BP Systolic 117 BP Diastolic 70 Pulse Ox 01/22/24 13:28 01/22/24 13:28 01/22/24 13:27 Temperature Temperature Source Temporal Pulse Rate 69 Respiratory Rate Blood Pressure 115/66 BP Systolic 115 BP Diastolic 66 Pulse Ox 01/22/24 13:27 01/22/24 13:27 01/22/24 13:27 Temperature 97.2 F L Temperature Source Pulse Rate Respiratory Rate 16 Blood Pressure BP Systolic BP Diastolic Pulse Ox 100 01/22/24 15:50 01/22/24 15:50 01/22/24 15:50 Temperature Temperature Source Pulse Rate 80 Respiratory Rate Blood Pressure 133/66 H BP Systolic 133 BP Diastolic 66 Pulse Ox 100 01/22/24 17:34 01/22/24 17:34 01/22/24 18:10 Temperature Temperature Source Temporal Pulse Rate 75 Respiratory Rate Blood Pressure 126/63 H BP Systolic 126 BP Diastolic 63 Pulse Ox 01/22/24 18:10 01/22/24 18:10 01/22/24 18:10 Temperature Temperature Source Pulse Rate 64 Respiratory Rate 16 Blood Pressure 103/54 L BP Systolic 103 BP Diastolic 54 Pulse Ox 01/22/24 18:10 01/22/24 18:10 01/22/24 19:28 Temperature 97.4 F L Temperature Source Pulse Rate 80 Respiratory Rate Blood Pressure BP Systolic BP Diastolic Pulse Ox 99 01/22/24 19:28 01/22/24 19:30 01/22/24 19:30 Temperature Temperature Source Pulse Rate 80 Respiratory Rate Blood Pressure 110/64 BP Systolic 110 BP Diastolic 64 Pulse Ox 100 01/22/24 19:28 01/22/24 19:28 01/22/24 19:28 Temperature 97.4 F L Temperature Source Temporal Pulse Rate Respiratory Rate 16 Blood Pressure BP Systolic BP Diastolic Pulse Ox Weight Weight: 96.729 kg Body Mass Index (BMI) 35.4 Physical Exam Const alert and no apparent distress General Appearance: cooperative HEENT normocephalic Head and Scalp: atraumatic Eyes PERRL and EOMs intact bilaterally Neck full ROM Resp normal respiratory effort GI soft to palpation GI Narrative: gravid, nontender, appropriate for gestational age Inspection: gravid Manual OB Exam: dilated 3, effaced 50 and station -3 Neuro moves all extremities and no focal motor deficits Psych activity/motor behavior normal Labs Labs Labs: Blood Type O POSITIVE Antibody Screen NEGATIVE Hct 36.3 % (37-47) L Hgb 12.5 g/dL (12.0-15.0) Syphilis Total Ab Non-reactive Assessment & Plan (1) Gestational diabetes, diet controlled: QUALIFIERS: Trimester: third trimester Qualified Code(s): O24.410- Gestational diabetes mellitus in , diet controlled PLAN: Pitocin induction. Epidural prn (2) 39 weeks gestation of : 01/22/241937 <Electronically signed by Ruma Tuttle MD> Cosigner Signature (if applicable): CC: Dr. Chano Shaw MD; Dr. Ruma Tuttle MD~ Signed [facility] Work Phone: 1(383) 749-760004-17-2024 Progress note Author Ruma Tuttle [facility] January 22, 2024 7:33pm Note Date/Time January 22, 2024 7:3 3pm [facility] Medical Records Department [address] [place] [address] Progress Note - OBGYN 01/22/24 193 MR#: [id number] Acct: [id number] Name: PELON DRISCOLL Rep #:[id number] : 1990 33 From: Ruma Tuttle MD PCP: Dr. Chano Shaw MD Status:ADM IN Location: [id number] Subjective Subjective Pitocin IOL. Minimal cervical change through out the day. Pitocin break as severe weather passed through. Restarted Pitocin and AROM for clear fluid. Objective Data Objective Data Vital Signs: Vital Signs Temp Pulse Resp BP Pulse Ox 97.4 F L 80 16 110/64 100 01/22/24 18:10 01/22/24 19:30 01/22/24 18:10 01/22/24 19:30 01/22/24 19:28 Weight: 96.729 kg Body Mass Index (BMI) 35.4 Intake & Output: Intake and Output for Last 24 Hours 01/20/24 01/21/24 01/22/24 23:59 23:59 23:59 Intake Total 435.94 / 435.94 Balance 435.94 / 435.94 Lab / Micro Data 01/22/24 08:00 Labs: Laboratory Results - last 24 hr 01/22/24 08:00: WBC 7.8, RBC 3.95 L, Hgb 12.5, Hct 36.3 L, MCV 91.9, MCH 31.6, MCHC 34.4, RDW Std Deviation 45.3 H, RDW Coeff of Cat 13.5, Plt Count 175, MPV 11.5, Immature Gran % (Auto) 0.300, Neut % (Auto) 74.0 H, Lymph % (Auto) 16.9 L,Miller % (Auto) 7.0, Eos % (Auto) 1.4, Baso % (Auto) 0.4, Absolute Neuts (auto) 5.8, Absolute Lymphs (auto) 1.32, Nucleated RBC % 0, Syphilis Total Ab Non-reactive, Blood Type O POSITIVE, Antibody Screen NEGATIVE 01/22/24 09:21: POC Glucose 104 01/22/24 16:15: POC Glucose 78 Physical Exam Const alert and no apparent distress General Appearance: cooperative HEENT normocephalic Resp normal respiratory effort GI soft to palpation GI Narrative: gravid, nontender, appropriate for gestational age Psych activity/motor behavior normal NST FHR Rate Baby A Variability:: Moderate Accelerations:: 15 x 15 Decelerations:: None NST Reactive:: Yes FHR Category:: Category I Uterine Activity:: q3 Assessment & Plan (1) 39 weeks gestation of : (2) Gestational diabetes, diet controlled: 01/22/241932 <Electronically signed by Ruma Tuttle MD> Cosigner Signature (if applicable): CC: ~ Signed [facility] Work Phone: [phone]) 148-547404-17-2024 Miscellaneous Notes* Telephone Encounter - Ruma Estevez RN - 01/22/2024 10:30 AM EDT [facility] updated and faxed. Will send copy to be scanned. Ruma Estevez RN * Telephone Encounter - Ruma Estevez RN - 01/21/2024 3:02 PM EDT 38w6d Patient is scheduled for induction on 01/21 and needs her [facility] paperwork updated. Received fax. In nurse phone room. Where it says that she is starting leave on 01/28, needs changed to 01/21. Patient will send a [employer] message tomorrow confirming that her induction is taking place and not being postponed. Ruma Estevez RN documented in this encounterMercy Health04-12-2024 Miscellaneous Notes* Quick Notes - Arnold Gilmore MD - 01/17/2024 8:54 AM EDT RR- VB No. LOF No. CTXS irregFetal Movement: present. Other c/o: No. Medication list reviewed. Physical Exam See Flow Sheet Abd: soft, nontender, gravid Ext: edema: 1+ A/P 38w2d Estimated Date of Delivery: 01/29/24 kick counts recommend induction at 39 weeks .- scheduled. GDMA1= fastings increasing to high 90s, low 100s, recommend delivery at 39 weeks Arnold Gilmore M.D. documented in this encounterMercy Health04-12-2024 Instructions* Patient Instructions* Bertha Collins MA - 01/17/2024 8:37 AM EDT SEQUENTIAL SCREENINGS [facility] offers sequential screenings for women who are interested in screenings for chromosomal abnormalities and certain defects during a . The sequential screen combinesultrasound and blood tests to determine the risk of chromosomal abnormalities, including Down's Syndrome (Trisomy 21) and Trisomy 18, as well as open neural tube defects including spina bifida. Ultrasound examination is performed between 11 weeks and 13 weeks gestational age. Blood tests are drawn after the ultrasound and again later in the between 15 and 21 weeks gestational age. Please let your physician know if you are interested in this testing. It will require an appointment withour maintenance technician 2nd shift. This is not an ultrasound performed by a physician in our office during a routine visit. SIGNS AND SYMPTOMS OF LABOR 1. Contractions every 10 minutes or more often 2. Clear, pink, or brownish fluid (water) leaking from vagina 3. Feeling that baby is pushing down, pressure 4. Low, dull backache 5. Cramps that feel like a period 6. Cramps with or without diarrhea If you notice any of the above symptoms, contact our office at [phone] and ask to speak with anurse. After hours, you can call [employer] registry at [phone] OR call [facility] at [phone] ask to have the doctor post acute care nurse practitioner paged. If you consider this an emergency, dial 06-07- or go to your nearest emergency department. NEED HELP? Are you dealing with a violent or abusive relationship? Are you a victim of rape or sexual assult? Call [facility] ([place]) 24 hour Crisis Hotline: 635.410.7941 or 045-480-8125. MANUAL Your Guide to a Healthy manual is now on-line. Visit [email or web address] to download your free copy documented in this encounterMercy Health04-11-2024 NoteHNO ID: [id number] Author: STACEY BARLOW, ? Service: ? Author Type: Patient Finishing Supervisor Plastic Sheets Type: Progress Notes Filed: 01/16/2024 08:48 Note Text: POPULATION HEALTH NAVIGATION OUTREACH Action/FYI Spoke to patient added process safety specialist to OB provider field Reason for Outreach Medicaid OB/Peds Care Gaps due: N/A Patient Contacted: Spoke to patient/parent/or legal guardian Patient identified by name and : Yes Medicaid OB/Peds actions taken: [place]/Correctional Security Officer added Navigation Signature: Stacey Barlow Population Health Navigator January 16, 2024 8:48 [facility]04-10-2024 NoteHNO ID: [id number] Author: STACEY BARLOW, ? Service: ? Author Type: Patient Finishing Supervisor Plastic Sheets Type: Progress Notes Filed: 01/15/2024 08:52 Note Text: POPULATION HEALTH NAVIGATION OUTREACH Action/FYI Left message to add process safety specialist to OB provider field My chart sent Reason for Outreach Medicaid OB/Peds Care Gaps due: N/A Patient Contacted: Unable or unnecessary to reach patient: Left message Moblyt message sent Navigation Signature: Stacey Barlow Population Health Navigator January 15, 2024 8:51 [facility]04-10-2024 History of Present illness Narrative* Stacey Barlow - 01/15/2024 8:50 AM EDT POPULATION HEALTH NAVIGATION OUTREACH Action/FYI Left message to add process safety specialist to OB provider field My chart sent Reason for Outreach Medicaid OB/Peds Care Gaps due: N/A Patient Contacted: Unable or unnecessary to reach patient: Left message MyChart message sent Navigation Signature: Stacey Barlow Population Health Navigator January 15, 2024 8:51 AM documented in this encounterMercy Health04-10-2024 NotePatient Outreach (NETNAV) PELON DRISCOLL ([id number]) 1990 F Date Time Provider Department 01/15/24 STACEY BARLOW During your visit today, we recorded the following information about you: Stacey Barlow 01/15/2024 8:52 AM Signed POPULATION HEALTH NAVIGATION OUTREACH Action/FYI Left message to add process safety specialist to OB provider field My chart sent Reason for Outreach Medicaid OB/Peds Care Gaps due: N/A Patient Contacted: Unable or unnecessary to reach patient: Left message Moxsie message sent Navigation Signature: Stacey Barlow Population Health Navigator January 15, 2024 8:51 AM Stacey Barlow 01/16/2024 8:48 AM Signed POPULATION HEALTH NAVIGATION OUTREACH Action/FYI Spoke to patient added process safety specialist to OB provider field Reason for Outreach Medicaid OB/Peds Care Gaps due: N/A Patient Contacted: Spoke to patient/parent/or legal guardian Patient identified by name and : Yes Medicaid OB/Peds actions taken: [place]/Correctional Security Officer added Navigation Signature: Stacey Barlow Population Health Navigator January 16, 2024 8:48 AM Allergies As of Date: 01/15/2024 Noted Allergy Reaction BEE STING 07/03/2006 9 - Itching POISON LOIDA 07/03/2006 Date Reviewed: 01/10/2024 Reviewed by: Ruma Tuttle MD - Fully Assessed Reason for Visit: Population Health Navigation Outreach [3910] Cmt: Ob/peds Prescriptions as of 01/16/2024 - glyBURIDE 5 mg tablet Take 1 tablet by mouth daily with breakfast. - ferrous sulfate (IRON ORAL) Take by mouth. - blood sugar diagnostic test strip Use as directed to check glucose levels up to seven times daily. - Lancets lancets Use as directed to check glucose levels up to seven times daily. - alcohol swabs (ALCOHOL PREP PADS) Use as directed to check glucose levels up to seven times daily. - PNV no.95/ferrous fum/folic ac ( ORAL) Take by mouth. - fluticasone (FLONASE) 50 mcg/actuation nasal spray Use 2 Sprays in each nostril once daily. Rinse mouth after use. Problem List As Of Date 01/15/2024 Noted Resolved Limited care in second trimester [O09.*08/14/2023 Obesity complicating , second trimeste*08/14/2023 Anemia complicating , second trimester*08/14/2023 Elevated glucose [R73.09] 10/31/2023 Gestational diabetes mellitus, class A1 [O24.41*11/06/2023 Encounter Status:Closed by STACEY BARLOW on 01/15/24[facility] 01-10-2024 NoteHNO ID: [id number] Author: RUMA TUTTLE MD Service: ? Author Type: Physician Type: Progress Notes Filed: 01/10/2024 16:33 Note Text: NST SUMMARY PROVIDER ASSESSMENT AND INTERPRETATION Indications for NST: Gestational Diabetes - Diet Controlled and Obesity Baseline: 130 Variability: Moderate Accelerations: Present 15 X 15 Decelerations: None Interpretation: Category I SIGNATURE: Ruma Tuttle [facility]04-05-2024 History of Present illness Narrative* Ruma Tuttle MD - 01/10/2024 4:32 PM EDT NST SUMMARY PROVIDER ASSESSMENT AND INTERPRETATION Indications for NST: Gestational Diabetes - Diet Controlled and Obesity Baseline: 130 Variability: Moderate Accelerations: Present 15 X 15 Decelerations: None Interpretation: Category I SIGNATURE: Ruma Tuttle MD documented in this encounterMercy Health04-05-2024 NoteHNO ID: [id number] Author: RUMA TUTTLE MD Service: ? Author Type: Physician Type: Progress Notes Filed: 01/10/2024 16:26 Note Text: NST SUMMARY PROVIDER ASSESSMENT AND INTERPRETATION Indications for NST: Diabetes - Diet Controlled Baseline: 130 Variability: Moderate Accelerations: Present 15 X 15 Decelerations: None Interpretation: Category I SIGNATURE: Ruma Tuttle, [facility]04-05-2024 Miscellaneous Notes* Quick Notes - Ruma Tuttle MD - 01/10/2024 4:00 PM EDT S: Pelon Driscoll is a 33 year old female who presents at 01/29/2024, by Last Menstrual Period for a routine visit. Denies headache, visual changes, chest pain, shortness of breath, vaginal bleeding,leakage of fluid, or dysuria. Stopped taking oral meds because she felt her blood sugar was dropping. However did not take BG at that time. Drank juice which than elevated her pp reading. Has been decreasing portion size and that helped more recent BG readings. O: See flow sheet Gen: No apparent distress Abd: Gravid, nontender Reactive NST ASSESSMENT/PLAN: 1. 37 weeks gestation of - ICD9: V22.2, ICD10: Z3A.37 (primary diagnosis) - URINE OB DIP B/O 2. Encounter for supervision of high risk in third trimester, antepartum - ICD9: V23.9, ICD10: O09.93 3. Gestational diabetes mellitus, class A1 - ICD9: 648.80, ICD10: O24.410 NST weekly. IOL at 39 weeks Ruma Tuttle MD documented in this encounterMercy Health04-05-2024 Instructions* Patient Instructions* Flavia Hale MA - 01/10/2024 2:51 PM EDT SEQUENTIAL SCREENINGS The [facility] offers sequential screenings for women who are interested in screenings for chromosomal abnormalities and certain defects during a . The sequential screen combinesultrasound and blood tests to determine the risk of chromosomal abnormalities, including Down's Syndrome (Trisomy 21) and Trisomy 18, as well as open neural tube defects including spina bifida. Ultrasound examination is performed between 11 weeks and 13 weeks gestational age. Blood tests are drawn after the ultrasound and again later in the between 15 and 21 weeks gestational age. Please let your physician know if you are interested in this testing. It will require an appointment withour maintenance technician 2nd shift. This is not an ultrasound performed by a physician in our office during a routine visit. SIGNS AND SYMPTOMS OF LABOR 1. Contractions every 10 minutes or more often 2. Clear, pink, or brownish fluid (water) leaking from vagina 3. Feeling that baby is pushing down, pressure 4. Low, dull backache 5. Cramps that feel like a period 6. Cramps with or without diarrhea If you notice any of the above symptoms, contact our office at [phone] and ask to speak with anurse. After hours, you can call doctors registry at [phone] OR call [facility] at [phone] ask to have the doctor post acute care nurse practitioner paged. If you consider this an emergency, dial 9-1-4 or go to your nearest emergency department. NEED HELP? Are you dealing with a violent or abusive relationship? Are you a victim of rape or sexual assult? Call [facility] ([place]) 24 hour Crisis Hotline: 185.827.4275 or 412-872-6999. MANUAL Your Guide to a Healthy manual is now on-line. Visit [email or web address] to download your free copy documented in this encounterMercy Health03-22-2024 Miscellaneous Notes* Quick Notes - Ruma Tuttle MD - 12/27/2023 4:44 PM EDT S: Pelon Driscoll is a 33 year old female who presents at 01/29/2024, by Last Menstrual Period for a routine visit. Denies headache, visual changes, chest pain, shortness of breath, vaginal bleeding,leakage of fluid, or dysuria. Feeling well, no complaints. BG reviewed. Only a few out a range. Has been trying to do better. O: See flow sheet Gen: No apparent distress Abd: Gravid, nontender NST reactive ASSESSMENT/PLAN: 1. Encounter for supervision of high risk in third trimester, antepartum - ICD9: V23.9, ICD10: O09.93 (primary diagnosis) - URINE OB DIP B/O - ROUTINE, GROUP B STREP PCR 2. 35 weeks gestation of - ICD9: V22.2, ICD10: Z3A.35 - URINE OB DIP B/O - ROUTINE, GROUP B STREP PCR 3. Gestational diabetes mellitus, class A1 - ICD9: 648.80, ICD10: O24.410 Maintaining BG with a few elevated - URINE OB DIP B/O - ROUTINE, GROUP B STREP PCR 4. Anemia complicating , third trimester - ICD9: 648.23, 285.9, ICD10: O99.013 - URINE OB DIP B/O - ROUTINE, GROUP B STREP PCR Ruma Tuttle MD documented in this encounterMercy Health03-22-2024 Instructions* Patient Instructions* Bertha Collins MA - 12/27/2023 3:33 PM EDT SEQUENTIAL SCREENINGS The [facility] offers sequential screenings for women who are interested in screenings for chromosomal abnormalities and certain defects during a . The sequential screen combinesultrasound and blood tests to determine the risk of chromosomal abnormalities, including Down's Syndrome (Trisomy 21) and Trisomy 18, as well as open neural tube defects including spina bifida. Ultrasound examination is performed between 11 weeks and 13 weeks gestational age. Blood tests are drawn after the ultrasound and again later in the between 15 and 21 weeks gestational age. Please let your physician know if you are interested in this testing. It will require an appointment withour maintenance technician 2nd shift. This is not an ultrasound performed by a physician in our office during a routine visit. SIGNS AND SYMPTOMS OF LABOR 1. Contractions every 10 minutes or more often 2. Clear, pink, or brownish fluid (water) leaking from vagina 3. Feeling that baby is pushing down, pressure 4. Low, dull backache 5. Cramps that feel like a period 6. Cramps with or without diarrhea If you notice any of the above symptoms, contact our office at [phone] and ask to speak with anurse. After hours, you can call doctors registry at [phone] OR call [facility] at [phone] ask to have the doctor post acute care nurse practitioner paged. If you consider this an emergency, dial 9-1-2 or go to your nearest emergency department. NEED HELP? Are you dealing with a violent or abusive relationship? Are you a victim of rape or sexual assult? Call [facility] ([place]) 24 hour Crisis Hotline: 869.592.6453 or 599-717-5191. MANUAL Your Guide to a Healthy manual is now on-line. Visit [email or web address] to download your free copy documented in this encounterMercy Health03-15-2024 Miscellaneous Notes* Quick Notes - Arnold Gilmore MD - 12/20/2023 4:15 PM EDT RR- VB No. LOF No. CTXS No. Movement: present. Other c/o: occas heartburn, not taking meds for this. Medication list reviewed. Physical Exam See Flow Sheet Abd: soft, nontender, gravid Ext: edema: Trace A/P 34w2d Estimated Date of Delivery: 01/29/24 cont. fe heartburn - d/w her tums prn gdma1, BS trending up, may need to conisder insulin, f/u in 1 week. start antepartum testing for multiple risk factors, DM, obesity Kick counts US for growth today, results pending, prelim aga w/ normal fluid Arnold Gilmore M.D. documented in this encounterMercy Health03-15-2024 Instructions* Patient Instructions* Bertha Collins MA - 12/20/2023 4:05 PM EDT SEQUENTIAL SCREENINGS The [facility] offers sequential screenings for women who are interested in screenings for chromosomal abnormalities and certain defects during a . The sequential screen combinesultrasound and blood tests to determine the risk of chromosomal abnormalities, including Down's Syndrome (Trisomy 21) and Trisomy 18, as well as open neural tube defects including spina bifida. Ultrasound examination is performed between 11 weeks and 13 weeks gestational age. Blood tests are drawn after the ultrasound and again later in the between 15 and 21 weeks gestational age. Please let your physician know if you are interested in this testing. It will require an appointment withour maintenance technician 2nd shift. This is not an ultrasound performed by a physician in our office during a routine visit. SIGNS AND SYMPTOMS OF LABOR 1. Contractions every 10 minutes or more often 2. Clear, pink, or brownish fluid (water) leaking from vagina 3. Feeling that baby is pushing down, pressure 4. Low, dull backache 5. Cramps that feel like a period 6. Cramps with or without diarrhea If you notice any of the above symptoms, contact our office at [phone] and ask to speak with anurse. After hours, you can call doctors registry at [phone] OR call [facility] at [phone] ask to have the doctor post acute care nurse practitioner paged. If you consider this an emergency, dial 9-1-5 or go to your nearest emergency department. NEED HELP? Are you dealing with a violent or abusive relationship? Are you a victim of rape or sexual assult? Call [facility] ([place]) 24 hour Crisis Hotline: 445.658.9207 or 868-264-9756. MANUAL Your Guide to a Healthy manual is now on-line. Visit [email or web address] to download your free copy documented in this encounterMercy Health03-07-2024 Miscellaneous Notes* Telephone Encounter - Maris Wyatt LPN - 12/12/2023 9:05 AM EST FMLA paperwork completed, faxed to employer, scanned into EMR and filed in mymxlog station. BRO Alexis * Telephone Encounter - Maris Wyatt LPN - 12/10/2023 3:13 PM EST FMLA completed and placed on providers desk for signature.Maris Wyatt LPN documented in this encounterMercy Health03-01-2024 Miscellaneous Notes* Telephone Encounter - Tamela Huerta APRN.CNP - 12/06/2023 4:44 PM EST Please reschedule next appt with physician. Patient high risk with GDM and has not seen physician yet. Tamela Huerta APRN.HITESH documented in this encounterMercy Health03-01-2024 Miscellaneous Notes* Quick Notes - Tamela Huerta APRN.CNP - 12/06/2023 3:42 PM EST S: Pelon is a 33 year old female who presents at 32w2d for a routine visit. Feeling movement. Denies headache, visual changes, chest pain, shortness of breath, vaginal bleeding, leakage of fluid, or dysuria. Feeling well, no complaints. O: See flow sheet Gen: No apparent distress Abd: Gravid, nontender, S>D ASSESSMENT/PLAN: 1. Encounter for supervision of high risk in third trimester, antepartum - ICD9: V23.9, ICD10: O09.93 (primary diagnosis) - URINE OB DIP B/O 2. 32 weeks gestation of - ICD9: V22.2, ICD10: Z3A.32 3. Obesity affecting in second trimester, unspecified obesity type - ICD9: 649.13, ICD10:O99.212 - Pre BMI 34 4. Gestational diabetes mellitus, class A1 - ICD9: 648.80, ICD10: O24.410 - Some isolated high blood sugars, reviewed goals of 1 hour <140, fasting <95. Recommend low sugar diet and daily walks. - Growth at 30 weeks: 38%, 16.2 DEON, repeat in 4 weeks 5. Anemia complicating , third trimester - ICD9: 648.23, 285.9, ICD10: O99.013 - Taking PO iron - CBC Tamela Huerta APRN.DIGITAL MEDIA MANAGER documented in this encounterMercy Health03-01-2024 Instructions* Patient Instructions* Poonam Atkins MA - 12/06/2023 3:20 PM EST SEQUENTIAL SCREENINGS The [facility] offers sequential screenings for women who are interested in screenings for chromosomal abnormalities and certain defects during a . The sequential screen combinesultrasound and blood tests to determine the risk of chromosomal abnormalities, including Down's Syndrome (Trisomy 21) and Trisomy 18, as well as open neural tube defects including spina bifida. Ultrasound examination is performed between 11 weeks and 13 weeks gestational age. Blood tests are drawn after the ultrasound and again later in the between 15 and 21 weeks gestational age. Please let your physician know if you are interested in this testing. It will require an appointment withour maintenance technician 2nd shift. This is not an ultrasound performed by a physician in our office during a routine visit. SIGNS AND SYMPTOMS OF LABOR 1. Contractions every 10 minutes or more often 2. Clear, pink, or brownish fluid (water) leaking from vagina 3. Feeling that baby is pushing down, pressure 4. Low, dull backache 5. Cramps that feel like a period 6. Cramps with or without diarrhea If you notice any of the above symptoms, contact our office at [phone] and ask to speak with anurse. After hours, you can call doctors registry at [phone] OR call [facility] at [phone] ask to have the doctor post acute care nurse practitioner paged. If you consider this an emergency, dial 5 or go to your nearest emergency department. NEED HELP? Are you dealing with a violent or abusive relationship? Are you a victim of rape or sexual assult? Call [facility] ([place]) 24 hour Crisis Hotline: 492.630.2912 or 804-832-2145. MANUAL Your Guide to a Healthy manual is now on-line. Visit [email or web address] to download your free copy documented in this encounterMercy Health02-29-2024 Miscellaneous Notes* Telephone Encounter - Ellie Olivo APRN.CNM - 12/05/2023 1:05 PM EST Reviewed. Please have her bring to visit. Ellie Olivo APRN.CNM * Telephone Encounter - Ruma Estevez RN - 12/05/2023 8:45 AM EST 32w1d Please review blood sugar readings. Patient has OB visit tomorrow with . * Telephone Encounter - Aleja Almonte RN - 11/27/2023 10:34 AM EST 31w0d Please review blood sugar readings. Aleja Almonte RN documented in this encounterMercy Health02-13-2024 Miscellaneous Notes* Quick Notes - Juliana Pritchard APRN.CNM - 11/19/2023 3:35 PM EST BILLIE-S: Pelon Driscoll is a 33 year old female who presents at 29w6d with WEI:01/29/2024, by Last Menstrual Period for a routine visit. Denies headache, visual changes, chest pain, shortness of breath,vaginal bleeding, leakage of fluid, or dysuria. Feeling well, no complaints. O: See flow sheet Gen: No apparent distress Abd: Gravid, nontender FBG and 2hr PP with 50% elevation. ASSESSMENT/PLAN: 1. Encounter for supervision of other normal in third trimester 2. 29 weeks gestation of 3. Need for vaccination P: 1) PTL precautions reviewed and when to call 2) RTO in 2 weeks 3) Tdap vaccine today. 4) Growth US every 4 weeks 5) Send blood glucose log weekly. Discussed elevated levels and patient would like to improve diet modifications and exercise over the next week. Will send BG log via Net[employer]. Discussed if continued elevation, will recommend insulin for management. Voiced understanding. Juliana Pritchard APRN.CNM documented in this encounterMercy Health02-13-2024 History of Present illness Narrative* Felix Arnold Cma - 11/19/2023 3:27 PM EST Patient identified by name and date of . Pelon Driscoll presents today for a vaccination of Tdap. Patient denies an allergy to latex: yes Patient denies a severe (life-threatening) allergy to a previous dose of Tdap, DTP, DTaP, DT or Td vaccine. Yes Patient denies history of epilepsy or neurological problems: Yes Patient is afebrile and denies being moderately or severely ill: Yes Patient denies history of Guillain-Arnold Syndrome (a severe paralytic illness): Yes Tdap Adacel injection was given without incident. See immunizations for details of immunizations administered today. VIS sheet provided: Yes Provider Juliana Pritchard APRN CNM was present in office at time of injection. Felix Arnold Cma documented in this encounterMercy Health02-13-2024 Instructions* Patient Instructions* Juliana Pritchard APRN.CNM - 11/19/2023 3:26 PM EST Send blood sugar log in one week via [employer] SIGNS AND SYMPTOMS OF LABOR 1. Contractions every 10 minutes or more often 2. Clear, pink, or brownish fluid (water) leaking from vagina 3. Feeling that baby is pushing down, pressure 4. Low, dull backache 5. Cramps that feel like a period 6. Cramps with or without diarrhea If you notice any of the above symptoms, contact our office at [phone] and ask to speak with anurse. After hours, you can call doctors registry at [phone] OR call [facility] at [phone] ask to have the doctor post acute care nurse practitioner paged. If you consider this an emergency, dial 06-07- or go to your nearest emergency department. NEED HELP? Are you dealing with a violent or abusive relationship? Are you a victim of rape or sexual assult? Call [facility] ([place]) 24 hour Crisis Hotline: 356.936.2884 or 143-494-3205. MANUAL Your Guide to a Healthy manual is now on-line. Visit [email or web address] to download your free copy documented in this encounterMercy Health02-05-2024 History of Present illness Narrative* Tommy Hoyt RN - 11/11/2023 4:00 PM EST DIABETES SELF-MANAGEMENT EDUCATION AND SUPPORT Location: [place] Type of visit: Virtual (with video) individual I have communicated my name and active licensure. The patient's identity and physical location wereverified at the time of this visit. Either the patient or their legal provider relations representative has been informed of the risks and benefits of -- and alternatives to -- treatment through a remote evaluation andconsents to proceed with the evaluation remotely. Types of DSMES: Initial/Comprehensive (add to or update ADA spreadsheet) PATIENT'S MAIN CONCERN TODAY: GDM Support person present for education today: spouse and son Cognitive ability: Alert and oriented Motivation to learn: Interested Learning barriers identified by educator: none Method of instruction: written, verbal, and demonstration INTERVENTIONS/TOPICS COVERED: -Diabetes Pathophysiology: gestational diabetes basics -Monitoring: rationale for HGM, A1c meaning and target <7%, and using a home glucose monitor -Healthy Eating: very brief review, had just met with the supervisor mending prior to our meeting -Medications: discussed commonly used meds, she seemed willing to use insulin if needed. -Physical Activity: benefits of exercise and impact of exercise on BG -Acute Complications: hyperglycemia s/sx/tx -Chronic Complications: risks to mom and baby with elevated blood sugars during -Healthy Coping and Support: impact of stress on BG DIABETES ASSESSMENT: Referring Physician: Juliana Pritchard Previous Diabetes Education? No What are you hoping to gain from this visit? Not sure they made this and the other appointment for me In your words, what is gestational diabetes? asked/not answered What concerns you about having gestational diabetes? asked/not answered Diabetes History: Type of Diabetes: Gestational ( diabetes in ) How far along is your ? Weeks: 28 Does anyone in your family have diabetes? asked/not answered How do you learn best?asked/not answered Demographics: Race/Ethnic Origin: White/ Does you culture or roman catholic require any of the following: No cultural/hindu practices affecting DM Do you have problems with: No difficulty seeing/hearing/reading/writing/speaking Occupation: [employer] Support System: How often does someone help you read hospital materials? never How often does someone help you read your pill bottles? never How often does someone have to help you take care of your diabetes? never Major stressors:asked/not answered How do you manage stress? asked/not answered Do any of the following things get in the way of managing your diabetes? No self-identified issues Health History: Do you use tobacco? No Do you use alcohol? No In the past 12 months have you had any: Hospital Admissions: No ER Visits: No Primary Care Visits: Yes, Number of Times? What are your general feelings about you overall health? Fair Medical Issues/Complications: To whom are you reporting your blood sugar levels? OB PAST MEDICAL HISTORY Diagnosis Date Anemia complicating , second trimester 08/14/2023 NEGATIVE MEDICAL HISTORY Most recent A1C Lab Results Component Value Date HBA1C 5.3 08/14/2023 Physical Activity: Do you do a regular exercise? Yes; how many days per week, busy with job on feet all day Sleep: Do you get at least 7 hrs of sleep most nights? Sometimes Current Outpatient Medications Medication Sig blood sugar diagnostic test strip Use as directed to check glucose levels up to seven times daily. Lancets lancets Use as directed to check glucose levels up to seven times daily. alcohol swabs (ALCOHOL PREP PADS) Use as directed to check glucose levels up to seven times daily. PNV no.95/ferrous fum/folic ac ( ORAL) Take by mouth. fluticasone (FLONASE) 50 mcg/actuation nasal spray Use 2 Sprays in each nostril once daily. Rinse mouth after use. No current facility-administered medications for this visit. Injections Technique: Do you take insulin or a medication you inject for your diabetes? No Blood Sugar Monitoring: Do you have a blood sugar monitor? Yes; What kind of meter is it? TrueMetrix Air How often do you check? Before breakfast, and 1 hour after meals Do you log your blood sugars? Yes.Where do you throw away your lancets? Sharps container Meal Planning: Are you currently following any meal plan? None How many meals do you eat per day? Three Which meals do you tend to skip? None Beverages: water and diet drinks EDUCATION HANDOUTS: LEARNING RESPONSE: Diabetes pathophysiology: Demonstrated understanding/competency today or at previous visit Healthy eating: Not assessed at the visit Being active: Demonstrated understanding/competency today or at previous visit Taking medications: Needs further instruction/review if insulin is needed Monitoring glucose: Demonstrated understanding/competency today or at previous visit Acute complications: Demonstrated understanding/competency today or at previous visit Chronic complications: Demonstrated understanding/competency today or at previous visit Healthy coping: Demonstrated understanding/competency today or at previous visit Diabetes distress and support: Demonstrated understanding/competency today or at previous visit PATIENT SELECTED THE FOLLOWING GOALS: -Monitoring goal: report sugars to my OB 4: I'm ready to start now POSSIBLE FUTURE TOPICS: 1. The following topics were not assessed due to time limitations, but should be assessed at the next visit: all areas were assessed today or within the last 12 months. 2. The following topics should be taught or reinforced at the next visit: . DIABETES EDUCATION PLAN: Individual follow-up Time Spent (Minutes): 30 This visit note will be communicated to the healthcare provider via access to shared medical record. SIGNATURE: Tommy Hoyt RN PATIENT NAME: Pelon Driscoll DATE: November 11, 2023 TIME: 3:31 PM PAGER: documented in this encounterMercy Health02-05-2024 Instructions* Patient Instructions* Tiera Nation, RD - 11/11/2023 2:25 PM EST Breakfast within an hour of waking, then plan for meals 4-5 hours; if longer of active have a snack Goals: Fasting glucose <95 mg/dL; 1 hr glucose ,140 mg/dL, 2 hr glucose ,120 mg/dL; mean glucoseof 86 mg/dL. 1. Distribute carbohydrate evening throught out the day, Choose whole grain starches and grains, avoid white and refined grains and sources of concentration sugars . Carbohydrates are the starches, fruits and milk group and is defined as 15 grams per serving/choice. 2. Keep breakfast at 15-30 grams carbohydrate; meals 30-45 grams and snacks 15- grams of carbohydrate, include healthy protein in meals and snacks. 3. Distribute meals and snacks every 2-3 hours. 4. Aim for 25-35 grams of fiber. 5. Limit saturated fat, choose lean proteins, healthy fast such as olive oil, canola oil, avocados,nuts/seeds, etc. 6. . Daily exercise of 30-60 minutes; (can count very active work days) 7. If need add a 15 min walk after meals to help control post meal blood sugars 8. If going back to bed at least have protein in the morning Ensure good sources of magnesium from a variety of seeds and dark greens such as spinach and irish chard; soybeans and nuts almonds and chashews. Ensure good sources of zinc from lean beef, pumpkin and squash seeds, dark chocolate and cocoa powder, and peanuts Ensure good sources of Folic Acid from a variety of dark greens and seeds; soy beans and kong sprouts. Beans such as Ball, garbonzo and mung; asparagus and peanuts Ensure adequate vit D-fatty fish, fortified cereal and soy products, meats, dairy products, eggs and mushrooms Ensure adequate Z65-zycc fatty fish, seafood and meats; cheese and eggs Ensure adequate sources of omega 3 fatty acids from fatty fish, bulmaro and flax seeds and eggs Ensure adequate calcium-aim for 3-4 servings of low fat/fat free dairy daily. Aim for moderate exercise regularly-continue to do regular activities. May need to change activities during avoiding high impact and higher stress activities. documented in this encounterMercy Health02-05-2024 History of Present illness Narrative* Tiera Nation RD - 11/11/2023 1:47 PM EST Nutrition Therapy Initial Assessment Nutrition Diagnosis: Altered nutrition-related lab values, related to, and endocrine dysfunction, as evidenced by elevated glucose tolerance test . RECOMMENDED MALNUTRITION DIAGNOSIS: NO MALNUTRITION IDENTIFIED NUTRITION CARE PLAN Nutrition Intervention 11/11/2023: modify type and amount of food or beverage Breakfast within an hour of waking, then plan for meals 4-5 hours; if longer of active have a snack Goals: Fasting glucose <95 mg/dL; 1 hr glucose ,140 mg/dL, 2 hr glucose ,120 mg/dL; mean glucoseof 86 mg/dL. 1. Distribute carbohydrate evening throught out the day, Choose whole grain starches and grains, avoid white and refined grains and sources of concentration sugars . Carbohydrates are the starches, fruits and milk group and is defined as 15 grams per serving/choice. 2. Keep breakfast at 15-30 grams carbohydrate; meals 30-45 grams and snacks 15- grams of carbohydrate, include healthy protein in meals and snacks. 3. Distribute meals and snacks every 2-3 hours. 4. Aim for 25-35 grams of fiber. 5. Limit saturated fat, choose lean proteins, healthy fast such as olive oil, canola oil, avocados,nuts/seeds, etc. 6. . Daily exercise of 30-60 minutes; (can count very active work days) 7. If need add a 15 min walk after meals to help control post meal blood sugars 8. If going back to bed at least have protein in the morning Ensure good sources of magnesium from a variety of seeds and dark greens such as spinach and irish chard; soybeans and nuts almonds and chashews. Ensure good sources of zinc from lean beef, pumpkin and squash seeds, dark chocolate and cocoa powder, and peanuts Ensure good sources of Folic Acid from a variety of dark greens and seeds; soy beans and kong sprouts. Beans such as Ball, garbonzo and mung; asparagus and peanuts Ensure adequate vit D-fatty fish, fortified cereal and soy products, meats, dairy products, eggs and mushrooms Ensure adequate B92-ntma fatty fish, seafood and meats; cheese and eggs Ensure adequate sources of omega 3 fatty acids from fatty fish, bulmaro and flax seeds and eggs Ensure adequate calcium-aim for 3-4 servings of low fat/fat free dairy daily. Aim for moderate exercise regularly-continue to do regular activities. May need to change activities during avoiding high impact and higher stress activities. Nutrition Monitoring & Evaluation: blood sugars in target range Need for Follow up: 3 weeks Patient presents for initial MNT as relates to gestation diabetes at 28-29 weeks. Has made changes to diet, checking blood sugars, about 50% in target range. Prepregnancy weight 215, no weight gain and possibly some loss this visit. Intake includes three meals and occ snacks, trying for better choices. Beverages mostly appropriate, did have sweet tea recently. Prior to diagnosis was drinking sweet tea regularly. Has high activity at work, working night time nanny, no additional exercise. Topics covered: Carb counting and individual meal plan High fiber goal, heart healthy choices Exercise Glucose goals Stress Patient's symptoms are: elevated blood sugars Diet History: wake 5 a.m. if working, if not wake 6 a.m. 5-6 a.m. (then back to bed if not working, then wake again around 8 88/99 Breakfast - 7:30 -coconut Chele cereal/2%; 12 grain bread and pnb (5:45 if working); water 203 today; 147 Snack - not usually Lunch - 9-9:30 when working, trying for later 10:30. At home closer to 11 branden = now kale veggies burger (2) no bun; quinoa bowls; salads and pretzels with jalapeno cream cheese; water, flavored water(before noodles) 133/151 Snack - occ, string cheese or pretzels Dinner - burgers/FF; shepards pie; salmon and asparagus, broccoli, rice, salsbury steak and mashed potatoes kale chips 109 (yesterday) 121 Snack - kale chips Beverages - water, flavored water, before sweet tea, and recently some sugar sweetened tea/lemonade Alcohol- no Vitamins/Supplements - vitamin Activity: Activities of Daily Living: Active 75% of the day. (On feet for most of the day, i.e. teacher/salesman) Additional Activity: Lightly active (Light exercise: planned physical activity 1-3 days/week); moreso in summer, did walk the other day. Active at work night time nanny Anthropometrics: Height: Last 1 Encounter Ht Readings: Date: Ht: 11/11/2023 165.1 cm (5' 5) Current weight: Last 1 Encounter Wt Readings: Date: Wt: 11/11/2023 94.9 kg (209 lb 2.4 oz) Body mass index is 34.8 kg/m . Resting Metabolic Rate: 1651 Malnutrition Screening Significant unintentional weight loss? No Eating less than 75% of usual intake for more than 2 weeks? No Potential Signs of Inflammation: Education Materials Provided: Gestational Diabetes Program and Healthy You - Planning Healthy Meals READINESS TO LEARN Cognitive ability: Alert and oriented Motivation to learn: Interested Family support: Unable to assess - Family not present Instruction provided to: Patient Patient learns best by: Individual Instruction Factors affecting learning: None Physical limitations affecting learning: None Referred/Supervised by: Macho/Homar SALINAS Billing Type: Initial Assess/15 min 3 units SIGNATURE: Tiera Nation RD PATIENT NAME: Pelon Driscoll DATE: November 11, 2023 TIME: 1:50 PM documented in this encounterMercy Health12-16-2023 History of Present illness Narrative* Mercedez Bernal PA-C - 09/21/2023 12:17 PM EST This note was created using [facility]. Subjective Pelon Driscoll is a 32 year old female. HPI Patient presents with chief complaint of cough, congestion and bodyaches since last night. Her son was positive for influenza A recently. She has not had a fever. No vomiting or diarrhea. No chest pain or shortness of breath. She is 21 weeks . No abdominal pain. No vaginal bleeding or discharge. She did not take anything [id number]. Review of Systems Constitutional: Negative. HENT: Positive for congestion, rhinorrhea and sneezing. Negative for ear pain and sore throat. Respiratory: Positive for cough. Negative for shortness of breath and wheezing. Cardiovascular: Negative. Gastrointestinal: Negative. Genitourinary: Negative. Musculoskeletal: Positive for myalgias. Neurological: Negative. All other systems reviewed and are negative. PAST MEDICAL HISTORY Diagnosis Date Anemia complicating , second trimester 08/14/2023 NEGATIVE MEDICAL HISTORY Current Outpatient Medications Medication Sig Dispense Refill PNV no.95/ferrous fum/folic ac ( ORAL) Take by mouth. fluticasone (FLONASE) 50 mcg/actuation nasal spray Use 2 Sprays in each nostril once daily. Rinse mouth after use. 1 Bottle 0 loratadine (CLARITIN) 10 mg tablet Take 1 tablet by mouth once daily. (Patient not taking: Reportedon 08/14/2023) 30 tablet 11 No current facility-administered medications for this visit. PAST SURGICAL HISTORY Procedure Laterality Date NONE FAMILY HISTORY Problem Relation Age of Onset No Known Problems Mother No Known Problems Father Diabetes Maternal Grandmother Hypertension Maternal Grandmother COPD Maternal Grandfather No Known Problems Paternal Grandmother No Known Problems Paternal Grandfather Social History Tobacco Use Smoking status: Never Smokeless tobacco: Never Vaping Use Vaping Use: Some days Substance Use Topics Alcohol use: Yes Comment: OCCASIONALLY, NOT WHILE Drug use: No Objective BP 119/77 Pulse 97 Temp 36.8 C (98.3 F) Resp 18 Wt 98.4 kg (217 lb) LMP 04/24/2023 (ExactDate) SpO2 100% BMI 36.11 kg/m Physical Exam Vitals reviewed. Constitutional: Appearance: Normal appearance. HENT: Head: Normocephalic and atraumatic. Right Ear: Tympanic membrane, ear canal and external ear normal. Left Ear: Tympanic membrane, ear canal and external ear normal. Nose: Congestion present. Mouth/Throat: Mouth: Mucous membranes are moist. Pharynx: Oropharynx is clear. No oropharyngeal exudate or posterior oropharyngeal erythema. Cardiovascular: Rate and Rhythm: Normal rate and regular rhythm. Heart sounds: Normal heart sounds. Pulmonary: Effort: Pulmonary effort is normal. Breath sounds: Normal breath sounds. Musculoskeletal: Cervical back: Neck supple. Skin: General: Skin is warm and dry. Findings: No rash. Neurological: Mental Status: She is alert. Assessment and Plan ASSESSMENT/PLAN: 1. Exposure to influenza - ICD9: V01.79, ICD10: Z20.828 POC influenza test was negative here. I did send a confirmatory COVID and influenza test. She is inthe window for Tamiflu if this is positive for influenza. Discussed supportive care. Discussed safemedications for [id number]. Patient agreeable with plan - INFLUENZA A&B MOLECULAR (POC) - COVID & INFLUENZA A/B NAAT, ROUTINE Mercedez Bernal PA-C documented in this encounterMercy Health12-16-2023 Instructions* Patient Instructions* Mercedez Bernal PA-C - 09/21/2023 11:42 AM EST Robitussin dm is ok in Most viruses last 7-10 days, if not improvement or worsening be seen again. documented in this encounterMercy Health12-05-2023 Miscellaneous Notes* Telephone Encounter - Sonia Mcgee - 09/10/2023 12:44 PM EST Kathi a Maternity Padding Gluer with [facility] calling, verified patient by name and . She would like to be contacted if there are any concerns with complications, PPD, or home healthcare needs. She can be reached at [phone] ext. [phone] documented in this encounterMercy Health11-29-2023 Instructions* Patient Instructions* Felix Arnold Cma - 09/04/2023 1:42 PM EST SEQUENTIAL SCREENINGS [facility] offers [facility] screenings for women who are interested in screenings for chromosomal abnormalities and certain defects during a . The sequential screen combinesultrasound and blood tests to determine the risk of chromosomal abnormalities, including Down's Syndrome (Trisomy 21) and Trisomy 18, as well as open neural tube defects including spina bifida. Ultrasound examination is performed between 11 weeks and 13 weeks gestational age. Blood tests are drawn after the ultrasound and again later in the between 15 and 21 weeks gestational age. Please let your physician know if you are interested in this testing. It will require an appointment withour maintenance technician 2nd shift. This is not an ultrasound performed by a physician in our office during a routine visit. SIGNS AND SYMPTOMS OF LABOR 1. Contractions every 10 minutes or more often 2. Clear, pink, or brownish fluid (water) leaking from vagina 3. Feeling that baby is pushing down, pressure 4. Low, dull backache 5. Cramps that feel like a period 6. Cramps with or without diarrhea If you notice any of the above symptoms, contact our office at [phone] and ask to speak with anurse. After hours, you can call doctors registry at [phone] OR call [facility] at [phone] ask to have the doctor post acute care nurse practitioner paged. If you consider this an emergency, dial 9-1-4 or go to your nearest emergency department. NEED HELP? Are you dealing with a violent or abusive relationship? Are you a victim of rape or sexual assult? Call [facility] ([place]) 24 hour Crisis Hotline: 144.767.5187 or 184-353-8197. MANUAL Your Guide to a Healthy manual is now on-line. Visit [email or web address] to download your free copy documented in this encounterMercy Health11-29-2023 Miscellaneous Notes* Quick Notes - Juliana Pritchard APRN.CNM - 09/04/2023 1:28 PM EST BILLIE-S: Pelon Driscoll is a 32 year old female who presents at 19w0d with WEI:01/29/2024, by Last Menstrual Period for a routine visit. Good FM. Denies headache, visual changes, chest pain, shortness of breath, vaginal bleeding, leakage of fluid, or dysuria. Feeling well, no complaints. O: See flow sheet Gen: No apparent distress Abd: Gravid, nontender P: 1) PTL precautions reviewed and when to call 2) RTO in 4 weeks 3) Anatomy US today 4) Declines aneuploidy screening 5) Continue ASA 6) Repeat CBC next visit, continue iron supplement Juliana Pritchard APRN.CNM documented in this encounterMercy Health07-17-2023 History of Present illness Narrative* Mercedez Bernal PA-C - 04/22/2023 11:03 AM EDT This note was created using [facility]. Subjective Pelon Driscoll is a 32 year old female. HPI Presents with a chief complaint of urinary frequency, urgency over the past week. Denies blood in her urine. No dysuria. Denies fever or chills. No back pain or abdominal pain. Has had UTIs before and this feels similar. Last menstrual cycle was March 28. She is sexually active with 1 partner. No vaginal itching or discharge or concern for STD. Review of Systems HENT: Negative. Respiratory: Negative. Cardiovascular: Negative. Gastrointestinal: Negative. Genitourinary: Positive for frequency and urgency. Negative for dysuria, vaginal bleeding, vaginal discharge and vaginal pain. Musculoskeletal: Negative. All other systems reviewed and are negative. PAST MEDICAL HISTORY Diagnosis Date NEGATIVE MEDICAL HISTORY Current Outpatient Medications Medication Sig Dispense Refill loratadine (CLARITIN) 10 mg tablet Take 1 tablet by mouth once daily. 30 tablet 11 nitrofurantoin monohydrate and macrocrystal (MACROBID) 100 mg capsule Take 1 capsule by mouth twicedaily with meals for 5 days. 10 capsule 0 albuterol HFA (PROVENTIL HFA, VENTOLIN HFA) 90 mcg/actuation inhaler Inhale 2 Puffs as instructed every 6 hours as needed for wheezing/shortness of breath. (Patient not taking: Reported on 04/22/2023)1 Each 0 fluticasone (FLONASE) 50 mcg/actuation nasal spray Use 2 Sprays in each nostril once daily. Rinse mouth after use. (Patient not taking: Reported on 10/08/2022) 1 Bottle 0 No current facility-administered medications for this visit. PAST SURGICAL HISTORY Procedure Laterality Date NONE FAMILY HISTORY Problem Relation Age of Onset Asthma Maternal Grandmother Diabetes Maternal Grandmother Hypertension Maternal Grandmother Social History Tobacco Use Smoking status: Never Smokeless tobacco: Never Vaping Use Vaping Use: Never used Substance Use Topics Alcohol use: Yes Comment: OCCASIONALLY, NOT WHILE Drug use: No Objective BP 128/84 Pulse 84 Temp 37 C (98.6 F) Resp 18 Wt 99.3 kg (219 lb) LMP 03/28/2023 (Exact Date) SpO2 98% BMI 36.44 kg/m Physical Exam Vitals reviewed. Constitutional: Appearance: Normal appearance. HENT: Head: Normocephalic and atraumatic. Skin: General: Skin is warm and dry. Neurological: General: No focal deficit present. Mental Status: She is alert. Assessment and Plan ASSESSMENT/PLAN: 1. Acute UTI - ICD9: 599.0, ICD10: N39.0 acute - UA positive for jesus manuel esterase and hematuria. negative. - Send urine for culture - Begin treatment with Macrobid 100 mg BID for 5 days - UA DIP, URINE (POC) - URINE CULTURE - HCG QUAL UR B/O Mercedez Bernal PA-C documented in this encounterMercy Health02-10-2023 History of Present illness Narrative* Kenna Sharp RT([place]) - 11/16/2022 10:10 AM EST Radiology Service Progress Note PATIENT NAME: Pelon Driscoll DATE OF SERVICE: November 16, 2022 TIME: 10:08 AM PATIENT IDENTITY VERIFICATION COMPLETED USING TWO (2) IDENTIFIERS: Name and Date of confirmedby patient verbally. FALL SCREENING: Has the patient had 2 falls in the last year or 1 fall with injury or currently using an Ambulatory Assistive Device (Walker, Cane, Wheelchair, Crutches, etc.)? No PATIENT GENDER DATA: Female. status: : No status: NO. PATIENT RELEVANT IMPLANT DATA REVIEWED: Yes RADIOLOGY DEPARTMENT: General X-ray: Exam(s) Completed: Chest X-Ray PERIPHERAL IV DATA: Not applicable SIGNED BY: RT Herber([place]) November 16, 2022 10:08 AM documented in this encounterMercy Health01-26-2023 History of Present illness Narrative* Pelon Cotto - 11/01/2022 11:46 AM EST POPULATION HEALTH NAVIGATION OUTREACH Action/FYI Left [facility] Patient Identified by Name and : NO Outreach Outcome/Action Unable to reach patient: Left message Did you use a PCP flex slot to schedule this appointment? No Reason for Outreach Care Gap or Scheduling/Wellness visits Payer: Payor: ARTHUR / Plan: [employer] OAP / Product Type: Open Access / Care Gap Reviewed:: Specialty Scheduling Reminder: Reminder note to check Health Maintenance for items below Health Maintenance items due: HEPATITIS B(1 of 3 - 3-dose series) Never done HEPATITIS C SCREENING Never done DTAP,TDAP,TD(1 - Tdap) Never done HPV TESTING Never done PAP TESTING due on 08/16/2021 COVID-19 VACCINE(3 - Booster for Moderna series) due on 10/07/2021 INFLUENZA(1) due on 06/07/2022 DEPRESSION ASSESSMENT Never done Navigation Signature: Pelon Cotto November 01, 2022 11:46 AM [facility] History of Present illness Narrative* Pelon Cotto - 10/29/2022 11:28 AM EST POPULATION HEALTH NAVIGATION OUTREACH Action/FYI Left vm Pt identified by name and : NO Outreach Outcome/Action Unable to reach patient: Left message Did you use a PCP flex slot to schedule this appointment? No Reason for Outreach Care Gap or Scheduling/Wellness visits Payer: Payor: ARTHUR / Plan: [employer] OAP / Product Type: Open Access / Care Gap Reviewed:: Specialty Scheduling Reminder: Reminder note to check Health Maintenance for items below Health Maintenance items due: HEPATITIS B(1 of 3 - 3-dose series) Never done HEPATITIS C SCREENING Never done DTAP,TDAP,TD(1 - Tdap) Never done HPV TESTING Never done PAP TESTING due on 08/16/2021 COVID-19 VACCINE(3 - Booster for Moderna series) due on 10/07/2021 INFLUENZA(1) due on 06/07/2022 DEPRESSION ASSESSMENT Never done Navigation Signature: Pelon Cotto October 29, 2022 11:28 AM documented in this encounter[facility]01-16-2023 History of Present illness Narrative* Nieves Sarah, RT(R) - 10/22/2022 2:00 PM EST Radiology Service Progress Note PATIENT NAME: Pelon Driscoll DATE OF SERVICE: October 22, 2022 TIME: 1:54 PM PATIENT IDENTITY VERIFICATION COMPLETED USING TWO (2) IDENTIFIERS: Name and Date of confirmedby patient verbally. FALL SCREENING: Has the patient had 2 falls in the last year or 1 fall with injury or currently using an Ambulatory Assistive Device (Walker, Cane, Wheelchair, Crutches, etc.)? No PATIENT GENDER DATA: Female. status: : No status: NO. PATIENT RELEVANT IMPLANT DATA REVIEWED: Not Applicable RADIOLOGY DEPARTMENT: General X-ray: Exam(s) Completed: Upper Extremity X- Ray(s): Shoulder, AP / TRUE AP / SUPRA OUTLET left PERIPHERAL IV DATA: Not applicable SIGNED BY: RT Mai(R) October 22, 2022 1:54 PM documented in this encounterMer[facility] Health01-02-2023 History of Present illness Narrative* Aryan Aleman MD - 10/08/2022 12:42 PM EST Patient presents with: Nasal Congestion: drainage, ear pain, cough, sore throat x 1 month HPI: Feeling sick for about 1 month. Improved 2 weeks ago for 2 days then returned 09/20/22. Earache forthe last few days. Positive symptoms: Cough, Sore throat from coughing, Earache (R>L), Nasal Congestion, Rhinorrhea, Post nasal drainage, Diarrhea yesterday, Negative symptoms: Shortness of breath, Chest pain, Sinus pressure, Fever, Headache, Nausea, Vomiting, OTC: Mucinex, Lozenges, nebulized saline PAST MEDICAL HISTORY Diagnosis Date NEGATIVE MEDICAL HISTORY MEDICATIONS: Current Outpatient Medications Medication Sig fluticasone (FLONASE) 50 mcg/actuation nasal spray Use 2 Sprays in each nostril once daily. Rinse mouth after use. (Patient not taking: Reported on 10/08/2022) No current facility-administered medications for this visit. ALLERGIES: ALLERGIES Allergen Reactions Bee Stings [Other] Itching Poison Loida VITALS: BP 122/70 Pulse 100 Temp 36.7 C (98.1 F) Resp 16 Wt 93 kg (205 lb) LMP 09/28/2019 (Approximate) SpO2 97% BMI 34.11 kg/m PHYSICAL EXAM: GEN: mildly ill appearing HEENT: PERRL, EOMI, conjunctiva clear Ears: canals clear. LTM without erythema, bulge, or effusion. RTM with erythema, effusion is clear centrally with peripheral inferior purulence. Sinuses: pressure over sinuses Throat: moist mucous membranes, mild erythema, no exudate Neck: supple, no thyromegaly, no lymphadenopathy HEART: regular rate and rhythm, no murmurs LUNGS: clear to auscultation, no wheezes or crackles, no increased WOB ASSESSMENT/PLAN: 1. Acute otitis media, right - ICD9: 382.9, ICD10: H66.91 - AMOXICILLIN 875 MG-POTASSIUM CLAVULANATE 125 MG TABLET Aryan Aleman MD [facility] Diagnosis Acute otitis media, right- Primary Unspecified otitis media documented in this encounter [facility]* Diagnosis Acute UTI- Primary Urinary tract infection, site not specified documented in this encounter [facility]* Diagnosis Encounter for anatomic survey- Primary Encounter for supervision of other normal in second trimester 19 weeks gestation of state, incidental Obesity affecting in second trimester, unspecified obesity type documented in this encounter [facility]* Diagnosis 19 weeks gestation of - Primary state, incidental Encounter for supervision of other normal in second trimester documented in this encounter [facility]* Diagnosis Exposure to influenza- Primary Contact with or exposure to other viral diseases documented in this encounter [facility]* Diagnosis Dietary counseling- Primary Dietary surveillance and counseling Gestational diabetes mellitus (GDM) in third trimester, gestational diabetes method of control unspecified documented in this encounter [facility]* Diagnosis Gestational diabetes mellitus (GDM) in third trimester, gestational diabetes method of control unspecified documented in this encounter [facility]* Diagnosis Encounter for supervision of other normal in third trimester- Primary 29 weeks gestation of state, incidental Need for vaccination Need for prophylactic vaccination and inoculation against unspecified single disease [facility] Diagnosis Encounter for ultrasound to check growth- Primary Encounter for routine screening for malformation using ultrasonics 30 weeks gestation of state, incidental Obesity affecting in second trimester, unspecified obesity type Gestational diabetes mellitus, class A1 Abnormal maternal glucose tolerance, complicating , childbirth, or the puerperium, unspecified as to episode of care documented in this encounter [facility]* Diagnosis Encounter for supervision of high risk in third trimester, antepartum- Primary 32 weeks gestation of state, incidental Obesity affecting in second trimester, unspecified obesity type Gestational diabetes mellitus, class A1 Abnormal maternal glucose tolerance, complicating , childbirth, or the puerperium, unspecified as to episode of care Anemia complicating , third trimester [facility]* Diagnosis Encounter for supervision of high risk in third trimester, antepartum- Primary Gestational diabetes mellitus, class A1 Abnormal maternal glucose tolerance, complicating , childbirth, or the puerperium, unspecified as to episode of care Anemia complicating , third trimester 34 weeks gestation of state, incidental Maternal obesity syndrome in third trimester BMI 35.0-35.9,adult Body Mass Index 35.0-35.9, adult [facility]* Diagnosis Gestational diabetes mellitus (GDM) in third trimester, gestational diabetes method of control unspecified documented in this encounter [facility]* Diagnosis Encounter for supervision of high risk in third trimester, antepartum- Primary 35 weeks gestation of state, incidental Gestational diabetes mellitus, class A1 Abnormal maternal glucose tolerance, complicating , childbirth, or the puerperium, unspecified as to episode of care Anemia complicating , third trimester documented in this encounter [facility]* Diagnosis 37 weeks gestation of - Primary state, incidental Encounter for supervision of high risk in third trimester, antepartum Gestational diabetes mellitus, class A1 Abnormal maternal glucose tolerance, complicating , childbirth, or the puerperium, unspecified as to episode of care documented in this encounter [facility]* Diagnosis Encounter for supervision of high risk in third trimester, antepartum- Primary Anemia complicating , third trimester 38 weeks gestation of state, incidental Diet controlled gestational diabetes mellitus (GDM) in third trimester [facility]* Diagnosis Obesity affecting in second trimester, unspecified obesity type- Primary 38 weeks gestation of state, incidental [facility]* Diagnosis Onset Date Resolution Status 39 weeks gestation of acute Gestational diabetes, diet controlled acute (spontaneous vaginal delivery) acute [facility] Work Phone: Evaluation note* Diagnosis 2 weeks follow-up- Primary [facility]* Diagnosis care and examination- Primary Routine follow-up [facility]* Diagnosis Acute cough documented in this encounter [facility]* Diagnosis Acute pain of left shoulder documented in this encounter [facility]* Diagnosis Sinobronchitis- Primary Unspecified sinusitis (chronic) documented in this encounter [facility]* Diagnosis Left upper quadrant pain- Primary Abdominal pain, left upper quadrant [facility]* Diagnosis Annual physical exam- Primary Routine general medical examination at a health care facility Screening for diabetes mellitus Screening for lipid disorders Immunization due Influenza vaccine refused documented [facility]* Attachments The following attachments cannot be sent through Care Everywhere. * Hepatitis B Vaccine (Recombinant (Adjuvanted)), ADULT (Arabic) [facility] Health[facility] for referral (narrative)* Outpatient Procedure (Routine) - Authorized Specialty Diagnoses / Procedures Referred By Elvis flores Referred To Contact [facility] Diagnoses Encounter for supervision of high risk in third trimester, antepartum Gestational diabetes mellitus, class A1 Maternal obesity syndrome in third trimester BMI 35.0-35.9,adult Procedures NON-STRESS TEST NON-STRESS TEST Arnold Gilmore MD [address] [place] [address] [facility] [address] [place] [address] Referral ID Status Reason Start Date Expiration Date Visits Requested Visits Authorized [id number] Authorized Auto-Generat ed Referral 12/20/2023 12/19/2024 5 1 [facility] for referral (narrative)* Diagnostic Procedure Only (Urgent) - Closed Specialty Diagnoses / Procedures Referred By Contac t Referred To Contact XR IMAGING Diagnoses Acute pain of left shoulder Procedures XR SHOULDER GENERAL 3V OR MORE AP/TRUE AP/OTHER LEFT RADEX SHOULDER COMPLETE MINIMUM 2 VIEWS Oziel Rubio APRN.DIGITAL MEDIA MANAGER [address] [address] [place] [address] Referral ID Status Reason Start Date Expiration Date V isits Requested Visits Authorized [id number] Closed Auto-Generate d Referral 10/22/2022 11/21/2023 1 1 [facility] for visit Narrative* Diagnostic Procedure Only (Urgent) - Closed Specialty Diagnoses / Procedures Referred By Contac t Referred To Contact XR IMAGING Diagnoses Acute pain of left shoulder Procedures XR SHOULDER GENERAL 3V OR MORE AP/TRUE AP/OTHER LEFT RADEX SHOULDER COMPLETE MINIMUM 2 VIEWS Oziel Rubio APRN.DIGITAL MEDIA MANAGER [address] [place] [address] [place] [address] Referral ID Status Reason Start Date Expiration Date V isits Requested Visits Authorized [id number] Closed Auto-Generate d Referral 10/22/2022 11/21/2023 1 1 [facility] Chief Complaint and Reason for Visit Chief Complaint VAG Reason for Visit 39 weeks gestation o f Gestational diabetes, diet controlled (spontaneous vaginal delivery) Advance Directives Advance Directive Response Recorded Date/ Time Living Will No January 22, 2024 7:38am Power of Shipping Room Supervisor No January 21 7:38am Summary Purpose Family History No Family History Records FoundNo Family History Records FoundNo Family History Records Found Additional Source Comments Source Comments (unrecognize d section and content) In the event this informatio n is protected by the Federal Confidentiality of Alcohol and Drug Abuse Patient Records regulations: The Federal rules restrict any use of the information to criminally investigate or prosecute any alcohol or drug abuse patient.[facility] HealthIn the event this information is protected by the Federal Confidentiality of Alcohol and Drug Abuse Patient Records regulations: The Federal rules restrict any use of the information to criminally investigate or prosecute any alcohol or drug abuse patient.[facility] HealthIn the event this information is protected by the Federal Confidentiality of Alcohol and Drug Abuse Patient Records regulations: The Federal rules restrict any use of the information to criminally investigate or prosecute any alcohol or drug abuse patient.[facility] HealthIn the event this information is protected by the Federal Confidentiality of Alcohol and Drug Abuse Patient Records regulations: The Federal rules restrict any use of the information to criminally investigate or prosecute any alcohol or drug abuse patient.[facility] HealthIn the event this information is protected by the Federal Confidentiality of Alcohol and Drug Abuse Patient Records regulations: The Federal rules restrict any use of the information to criminally investigate or prosecute any alcohol or drug abuse patient.[facility] HealthIn the event this information is protected by the Federal Confidentiality of Alcohol and Drug Abuse Patient Records regulations: The Federal rules restrict any use of the information to criminally investigate or prosecute any alcohol or drug abuse patient.[facility] HealthIn the event this information is protected by the Federal Confidentiality of Alcohol and Drug Abuse Patient Records regulations: The Federal rules restrict any use of the information to criminally investigate or prosecute any alcohol or drug abuse patient.[facility] HealthIn the event this information is protected by the Federal Confidentiality of Alcohol and Drug Abuse Patient Records regulations: The Federal rules restrict any use of the information to criminally investigate or prosecute any alcohol or drug abuse patient.[facility] HealthIn the event this information is protected by the Federal Confidentiality of Alcohol and Drug Abuse Patient Records regulations: The Federal rules restrict any use of the information to criminally investigate or prosecute any alcohol or drug abuse patient.[facility] HealthIn the event this information is protected by the Federal Confidentiality of Alcohol and Drug Abuse Patient Records regulations: The Federal rules restrict any use of the information to criminally investigate or prosecute any alcohol or drug abuse patient.[facility] HealthIn the event this information is protected by the Federal Confidentiality of Alcohol and Drug Abuse Patient Records regulations: The Federal rules restrict any use of the information to criminally investigate or prosecute any alcohol or drug abuse patient.[facility] HealthIn the event this information is protected by the Federal Confidentiality of Alcohol and Drug Abuse Patient Records regulations: The Federal rules restrict any use of the information to criminally investigate or prosecute any alcohol or drug abuse patient.[facility] HealthIn the event this information is protected by the Federal Confidentiality of Alcohol and Drug Abuse Patient Records regulations: The Federal rules restrict any use of the information to criminally investigate or prosecute any alcohol or drug abuse patient.[facility] HealthIn the event this information is protected by the Federal Confidentiality of Alcohol and Drug Abuse Patient Records regulations: The Federal rules restrict any use of the information to criminally investigate or prosecute any alcohol or drug abuse patient.[facility] HealthIn the event this information is protected by the Federal Confidentiality of Alcohol and Drug Abuse Patient Records regulations: The Federal rules restrict any use of the information to criminally investigate or prosecute any alcohol or drug abuse patient.[facility] HealthIn the event this information is protected by the Federal Confidentiality of Alcohol and Drug Abuse Patient Records regulations: The Federal rules restrict any use of the information to criminally investigate or prosecute any alcohol or drug abuse patient.[facility] HealthIn the event this information is protected by the Federal Confidentiality of Alcohol and Drug Abuse Patient Records regulations: The Federal rules restrict any use of the information to criminally investigate or prosecute any alcohol or drug abuse patient.[facility] HealthIn the event this information is protected by the Federal Confidentiality of Alcohol and Drug Abuse Patient Records regulations: The Federal rules restrict any use of the information to criminally investigate or prosecute any alcohol or drug abuse patient.[facility] HealthIn the event this information is protected by the Federal Confidentiality of Alcohol and Drug Abuse Patient Records regulations: The Federal rules restrict any use of the information to criminally investigate or prosecute any alcohol or drug abuse patient.[facility] HealthIn the event this information is protected by the Federal Confidentiality of Alcohol and Drug Abuse Patient Records regulations: The Federal rules restrict any use of the information to criminally investigate or prosecute any alcohol or drug abuse patient.[facility] HealthIn the event this information is protected by the Federal Confidentiality of Alcohol and Drug Abuse Patient Records regulations: The Federal rules restrict any use of the information to criminally investigate or prosecute any alcohol or drug abuse patient.[facility] HealthIn the event this information is protected by the Federal Confidentiality of Alcohol and Drug Abuse Patient Records regulations: The Federal rules restrict any use of the information to criminally investigate or prosecute any alcohol or drug abuse patient.[facility] HealthIn the event this information is protected by the Federal Confidentiality of Alcohol and Drug Abuse Patient Records regulations: The Federal rules restrict any use of the information to criminally investigate or prosecute any alcohol or drug abuse patient.[facility] HealthIn the event this information is protected by the Federal Confidentiality of Alcohol and Drug Abuse Patient Records regulations: The Federal rules restrict any use of the information to criminally investigate or prosecute any alcohol or drug abuse patient.[facility] HealthIn the event this information is protected by the Federal Confidentiality of Alcohol and Drug Abuse Patient Records regulations: The Federal rules restrict any use of the information to criminally investigate or prosecute any alcohol or drug abuse patient.[facility] HealthIn the event this information is protected by the Federal Confidentiality of Alcohol and Drug Abuse Patient Records regulations: The Federal rules restrict any use of the information to criminally investigate or prosecute any alcohol or drug abuse patient.[facility] HealthIn the event this information is protected by the Federal Confidentiality of Alcohol and Drug Abuse Patient Records regulations: The Federal rules restrict any use of the information to criminally investigate or prosecute any alcohol or drug abuse patient.[facility] HealthIn the event this information is protected by the Federal Confidentiality of Alcohol and Drug Abuse Patient Records regulations: The Federal rules restrict any use of the information to criminally investigate or prosecute any alcohol or drug abuse patient.[facility] HealthIn the event this information is protected by the Federal Confidentiality of Alcohol and Drug Abuse Patient Records regulations: The Federal rules restrict any use of the information to criminally investigate or prosecute any alcohol or drug abuse patient.[facility] HealthIn the event this information is protected by the Federal Confidentiality of Alcohol and Drug Abuse Patient Records regulations: The Federal rules restrict any use of the information to criminally investigate or prosecute any alcohol or drug abuse patient.[facility] HealthIn the event this information is protected by the Federal Confidentiality of Alcohol and Drug Abuse Patient Records regulations: The Federal rules restrict any use of the information to criminally investigate or prosecute any alcohol or drug abuse patient.[facility] Reason for Visit (unrecogniz ed section and content) Reason Comments Nasal Congestion drainage, ear pain, cough, sore throat x 1 month Reason Comments UTI Painful urination, d ysuria x1 week Reason Comments US Specialty Diagnoses / Procedures Referred By Shaquilleac t Referred To Contact [facility] Diagnoses Encounter for supervision of other normal in second trimester Procedures OBSTETRIC ULTRASOUND WHI US PREG UTERUS AFTER 1ST TRIMEST GESTATION Ellie Olivo APRN.CNM [address] [place] [address] [facility] [address] [place] [address] Referral ID Status Reason Start Date Expiration Date V isits Requested Visits Authorized [id number] Closed Auto-Generate d Referral 08/14/2023 08/13/2024 1 1 Reason Onset Date Comments Care 09/04/2023 Reason Comments Patient Update Reason Comments Flu Like Symptoms Flu A exposure, coug h, congestion, bodyaches x1 day Reason Comments Assessment Patient Education Specialty Diagnoses / Procedures Referred By Shaquilleac t Referred To Contact Nutrition Diagnoses Gestational diabetes mellitus (GDM) in third trimester, gestational diabetes method of control unspecified Procedures CONSULT TO NUTRITION THERAPY MEDICAL NUTRITION ASSMT&IVNTJ INDIV EACH 15 DE MEDICAL NUTRITION ASSMT&IVNTJ INDIV EACH 15 DE MEDICAL NUTRITION ASSMT&IVNTJ INDIV EACH 15 DE MEDICAL NUTRITION ASSMT&IVNTJ INDIV EACH 15 DE Juliana Pritchard APRN.EDVIN [address] [place] [address] Referral ID Status Reason Start Date Expiration Date V isits Requested Visits Authorized [id number] Closed PCP Requested Referral 11/06/2023 11/05/2024 1 1 Specialty Diagnoses / Procedures Referred By Contac t Referred To Contact Diagnoses Gestational diabetes mellitus (GDM) in third trimester, gestational diabetes method of control unspecified Procedures CONSULT TO DIABETES EDUCATION DSME/MNT MEDICAL NUTRITION ASSMT&IVNTJ INDIV EACH 15 DE MEDICAL NUTRITION ASSMT&IVNTJ INDIV EACH 15 DE MEDICAL NUTRITION ASSMT&IVNTJ INDIV EACH 15 DE MEDICAL NUTRITION ASSMT&IVNTJ INDIV EACH 15 DE Juliana Pritchard APRN.EDVIN [address] [place] [address] Referral ID Status Reason Start Date Expiration Date V isits Requested Visits Authorized [id number] Closed PCP Requested Referral 11/06/2023 11/05/2024 1 1 Reason Onset Date Comments Care 11/19/2023 Specialty Diagnoses / Procedures Referred By Contac t Referred To Contact [facility] Diagnoses Late care affecting , antepartum Procedures OBSTETRIC ULTRASOUND WHI US PREG UTERUS AFTER 1ST TRIMEST GESTATION Juliana Pritchard APRN.CNM [address] [place] [address] [facility] [address] [place] [address] Referral ID Status Reason Start Date Expiration Date V isits Requested Visits Authorized [id number] Closed Auto-Generate d Referral 07/26/2023 07/25/2024 1 1 Reason Comments Appointment Reason Onset Date Comments Care 12/06/2023 Reason Comments FMLA Paperwork Reason Onset Date Comments Care 12/20/2023 Specialty Diagnoses / Procedures Referred By Contac t Referred To Contact [facility] Diagnoses Gestational diabetes mellitus (GDM) in third trimester, gestational diabetes method of control unspecified Procedures OBSTETRIC ULTRASOUND WHI US PREG UTERUS AFTER 1ST TRIMEST GESTATION Juliana Pritchard APRN.CNM [address] [place] [address] [facility] [address] [place] [address] Referral ID Status Reason Start Date Expiration Date V isits Requested Visits Authorized [id number] Closed Auto-Generate d Referral 11/06/2023 11/05/2024 5 1 Reason Onset Date Comments Care 12/27/2023 Reason Onset Date Comments Care 01/10/2024 Reason Onset Date Comments Population Health Navigation Outreach 01/15/2024 Ob/peds Reason Onset Date Comments Care 01/17/2024 Specialty Diagnoses / Procedures Referred By Contac t Referred To Contact [facility] Diagnoses Obesity affecting in second trimester, unspecified obesity type Procedures OBSTETRIC ULTRASOUND WHI US PREG UTERUS AFTER 1ST TRIMEST GESTATION Juliana Pritchard APRN.CNM [address] [place] [address] [facility] [address] [place] [address] Referral ID Status Reason Start Date Expiration Date V isits Requested Visits Authorized [id number] Closed Auto-Generate d Referral 12/27/2023 12/26/2024 1 1 Reason Comments Forms/letter FMLA - updated Reason Comments Ob Delivery Note Reason Comments Early Reason Comments Care Reason Comments Cough Chest congestion, SO B, yellow phlegm, x 1 wkExposed at work Reason Comments Abdominal Pain Left abdominal pain radiating into back x 2 weeks Reason Comments New Patient Annual Exam Blood Work Health Maintenance Mmr vaccine- done as childVaricella vaccine- had chicken poxHep b vaccine- agreeFlu vaccine- [id number] covid vaccine- not done and will not get any more Reason Onset Date Comments Results 12/09/2024 Reason Onset Date Comments Chest Pain 11/18/2024 Care Teams (unrecognized sec tion and content) Chief Engineer Research Relationship Specialty Start Date End Date Chano Shaw [address] [place] [address] PCP - General Family Medicine 10/22/22 Chief Engineer Research Relationship Specialty Start Date End Date Chano Shaw [address] [place] [address] PCP - General Family Medicine 10/22/22 Chief Engineer Research Relationship Specialty Start Date End Date Chano Shaw [address] [place] [address] PCP - General Family Medicine 10/22/22 Chief Engineer Research Relationship Specialty Start Date End Date Chano Shaw [address] [place] [address] PCP - General Family Medicine 10/22/22 Chief Engineer Research Relationship Specialty Start Date End Date Chano Shaw [address] [place] [address] PCP - General Family Medicine 10/22/22 Chief Engineer Research Relationship Specialty Start Date End Date Chano Shaw [address] [place] [address] PCP - General Family Medicine 10/22/22 Chief Engineer Research Relationship Specialty Start Date End Date Chano Shaw [address] [place] [address] PCP - General Family Medicine 10/22/22 Chief Engineer Research Relationship Specialty Start Date End Date Chano Shaw [address] [place] [address] PCP - General Family Medicine 10/22/22 Chief Engineer Research Relationship Specialty Start Date End Date Chano Shaw [address] [place] [address] PCP - General Family Medicine 10/22/22 Chief Engineer Research Relationship Specialty Start Date End Date Chano Shaw [address] [place] [address] PCP - General Family Medicine 10/22/22 Chief Engineer Research Relationship Specialty Start Date End Date Chano hSaw [address] [place] [address] PCP - General Family Medicine 10/22/22 Chief Engineer Research Relationship Specialty Start Date End Date Chano Shaw [address] [place] [address] PCP - General Family Medicine 10/22/22 Chief Engineer Research Relationship Specialty Start Date End Date Chano Shaw [address] [place] [address] PCP - General Family Medicine 10/22/22 Chief Engineer Research Relationship Specialty Start Date End Date Chano Shaw [address] [place] [address] PCP - General Family Medicine 10/22/22 Chief Engineer Research Relationship Specialty Start Date End Date Chano Shaw [address] [place] [address] PCP - General Family Medicine 10/22/22 Chief Engineer Research Relationship Specialty Start Date End Date Chano Shaw [address] [place] [address] PCP - General Family Medicine 10/22/22 Chief Engineer Research Relationship Specialty Start Date End Date Chano Shaw [address] [place] [address] PCP - General Family Medicine 10/22/22 Chief Engineer Research Relationship Specialty Start Date End Date Chano Shaw [address] [place] [address] PCP - General Family Medicine 10/22/22 Chief Engineer Research Relationship Specialty Start Date End Date Chano Shaw [address] [place] [address] PCP - General Family Medicine 10/22/22 Team Status: Active Member Role Status Dates Dr. Chano Shaw MD Family Provider Active Dr. Chano Shaw MD Primary Care Provider Active Team Status: Inactive Member Role Status Dates Dr. Chano Shaw MD Primary Care Provider Active Dr. Ruma Tuttle MD Admit Provider, Attending Pro vider Active Chief Engineer Research Relationship Specialty Start Date End Date Chano Shaw [address] [place] [id number] PCP - General Family Medicine 10/22/22 Chief Engineer Research Relationship Specialty Start Date End Date Chano Shaw [address] [place] [address] PCP - General Family Medicine 10/22/22 Chief Engineer Research Relationship Specialty Start Date End Date Chano Shaw MD [address] [place] [id number] PCP - General 04/30/16 Chief Engineer Research Relationship Specialty Start Date End Date Chano Shaw MD [address] [place] [id number] PCP - General 04/30/16 Chief Engineer Research Relationship Specialty Start Date End Date Chano Shaw MD [address] [place] [id number] PCP - General 04/30/16 INFORMATION SOURCE (unrecogn ized section and content) DATE CREATED AUTHOR 11/10/2024 [facility] DATE CREATED AUTHOR AUTHOR'S ORGANIZ ATION 11/21/2024 [facility] DATE CREATED AUTHOR AUTHOR'S ORGANIZ ATION 12/12/2024 [facility] FOR RECORDS PERTAINING TO PATIENTS WHO ARE OR HAVE BEEN ENROLLED IN A CHEMICAL DEPENDENCY/SUBSTANCEABUSE PROGRAM, SOME INFORMATION MAY BE OMITTED. This clinical summary was aggregated from multiple sources. Caution should be exercised in using it in the provision of clinical care. This summary normalizes information from multiple sources, and as a consequence, information in this document may materially change the coding, format and clinical context of patient data. In addition, data may be omitted in some cases. CLINICAL DECISIONS SHOULD BE BASED ON THE PRIMARY CLINICAL RECORDS. [employer] [facility]. provides no warranty or guarantee of the accuracy or completeness of information in this document.
--- NOTE | 2025-07-24 22:33 | EX.ED.DYSGE1 ---
HPI History of Present Illness Chief Complaint: Laceration Informant: patient Narrative Narrative: Patient is a 34-year-old female with no significant past medical history. She states she is right-hand dominant. She states that approximately 24 hours ago she was at work and she was opening a box. She states one of the employees across from her was using a crepe box tender to open boxes as well. She states as they cut the box they accidentally extended their arm and cut her in the left hand injuring her 2nd and 3rd finger. She states her tetanus status is up-to-date. She reports that she washed the area and then covered the wounds with liquid bandage. She states she still has some pain and irritation and was concerned about this and therefore comes in for evaluation [facility] Medical History (spontaneous vaginal delivery) Gestational diabetes, diet controlled 39 weeks gestation of Gestational diabetes Home Medications ?Medication ?Instructions ?Recorded ?Last Taken ?Type NK 07/24/25 Unknown History Allergy/AdvReac Type Severity Reaction Status Date / Time bee venom protein (honey bee) Allergy Swelling Verified 07/24/25 21:20 Social History Smoking Status: Never smoker [facility] ED Constitutional Constitutional ED: Denies chills or fever(s) ENT ENT ED: Reports sore throat Cardiovascular Cardiovascular: Denies chest pain Respiratory/Chest Respiratory/Chest: Denies cough or dyspnea Gastrointestinal Gastrointestinal: Denies abdominal pain, diarrhea, nausea or vomiting Musculoskeletal Musculoskeletal: Reports other Details: Positive left hand/finger pain Integumentary Reports other Details: Positive laceration left fingers Neurologic Neurologic: Reports paresthesias; Denies headache(s) Hematologic/Lymphatic Hematologic/Lymphatic: Denies easy bleeding or easy bruising EXAM Physical Exam Const Vital Signs: 07/24/25 21:20 07/24/25 22:39 Temperature 98.4 F 98.3 F Temperature Source Temporal Pulse Rate 86 83 Respiratory Rate 18 20 H Blood Pressure 151/77 H 127/71 H Blood Pressure Mean 101 89 Pulse Ox 98 98 Oxygen Delivery Method Room Air Positive well nourished and well developed General Appearance ED: well developed HEENT HEENT Narrative: Normocephalic atraumatic Eyes PERRL and EOMs intact bilaterally General Eye ED: Negative for scleral icterus Neck supple Resp normal respiratory effort and clear to auscultation bilaterally Cardio regular rate and regular rhythm Extremity Extremity Narrative: Left upper extremity is neurovascularly intact; AIN/PIN are intact and normal. Patient has a linear dermal layer deep laceration along the ulnar portion of the second digit. It is roughly 1.5 cm in length and extends from the PIP joint region to the tip of the finger. There is no active bleeding or surrounding erythema or warmth. Patient also has a linear 1cm second laceration that is dermal layer deep along the dorsal aspect of the third digit just distal to the PIP joint. Both wounds are closed without gaping or active bleeding. No surrounding signs of infection such as erythema or warmth or lymphangitic streaking. No ligamentous or tendon injury noted. Remainder of the exam is normal Neuro oriented x3, CN's II-XII intact bilaterally and no sensory deficits noted Sensorium / Orientation: alert Psych mental status grossly normal Skin Skin Narrative: Healing lacerations to the left hand as documented above without sign of secondary infection MDM MDM MDM Narrative Medical decision making narrative: Patient arrived to ER mildly hypertensive but otherwise stable vitals. She cut her left hand/fingers over 24 hours ago. She had already closed the wound with liquid bandage. By physical exam there is no sign of ligamentous or tendon injury or secondary infection. I have low concern for cellulitis or abscess I have low concern for ligamentous or tendon rupture and I have low concern for bony injury associated with this and therefore feel no need for imaging or laboratory studies. As the patient is already close to liquid bandages and the wound is over 24 hours old there is no need for Dermabond or sutures at this time. Patient was advised to continue to treat the wound with soap and water and liquid bandage and that should heal on its own. She agrees to the plan of care and is otherwise safe for discharge. History & Record Review Discussion w/independent historian: Patient Discharge Plan Triage Chief Complaint: Laceration ED Provider: Andrew Celis Dx/Rx/DC Orders Clinical Impression: Laceration of finger of left hand Instructions: ED Laceration, Extremity: Skin Glue Prescriptions: No Action NK Primary Care Provider: Chano Grigsby Referrals: Chano Grigsby MD [Primary Care Provider, Family Practice] Activity Restrictions/Additional Instructions: Continue to reapply either a liquid bandage to help with wound healing as you have done already. Watch for development of redness or streaking which could indicate potential infection. It will typically take 7 to 10 days for the wounds to heal. Return to the ER should you have any further concerns or you notice signs of infection Print Language: Hungarian Disposition Disposition: Home, Self Care Discharge Date/Time: 07/24/25 22:39
[2025-07-24 22:39] VITALS: BP 127/71; PULSE 83; RESP 20; TEMP 36.8; O2SAT 98
== END 2025-07-24 22:39 | disposition home or self-care (01) ==
PROVIDERS: Emergency Provider Emergency Medicine; PCP Family Medicine; Visit Provider Emergency Medicine
DX: S61.211A Laceration without foreign body of left index finger without damage to nail, initial encounter (principal); S61.213A Laceration without foreign body of left middle finger without damage to nail, initial encounter; W26.8XXA Contact with other sharp object(s), not elsewhere classified, initial encounter
CPT/HCPCS: 99282